=== PATIENT | male | born 1945 | race Caucasian/White ===

== ENCOUNTER 2016-07-02 10:09 | Inpatient (IN) | payer OTHER, MEDICARE ==
--- NOTE | 2016-07-02 10:19 | ER Document Report ---
ED Medical Screen (RME) - General Stated Complaint: SHORTNESS OF BREATH,COUGH Mode of Arrival: Wheelchair Information source: Patient Notes: Patient reports 6 pound weight gain in 2 days. Patient complains of cough and shortness of breath. Patient does not wear oxygen at home. Patient denies any chest pain hx: CAD, A. fib, CHF diabetes, sleep apnea, ischemic cardiomyopathy I have greeted and performed a rapid initial assessment of this patient. A comprehensive ED assessment and evaluation of the patient, analysis of test results and completion of the medical decision making process will be conducted by additional ED providers. - Related Data Allergies/Adverse Reactions: spironolactone Allergy (Verified 07/02/16 10:17) Physical Exam - Vital signs Vitals: Temp Pulse Resp BP Pulse Ox 97.9 F 83 23 H 117/62 85 L 07/02/16 10:14 07/02/16 10:14 07/02/16 10:14 07/02/16 10:14 07/02/16 10:14 - Respiratory Respiratory status: No respiratory distress, Other - Diminished breath sounds bilaterally in the bases Breath sounds: Nonproductive cough Course - Vital Signs Vital signs: Temp Pulse Resp BP Pulse Ox 97.9 F 83 23 H 117/62 85 L 07/02/16 10:14 07/02/16 10:14 07/02/16 10:14 07/02/16 10:14 07/02/16 10:14
[2016-07-02] MEDS ORDERED: IPRATROPIUM/ALBUTEROL 0.5-2.5 MG/3 ML AMPUL NEB ONE ×3 (10:28→10:29)
[2016-07-02 10:50] LABS: ABSOLUTE BASOPHILS # (AUTO) 0.1 10^3/uL (0.0-0.2); ABSOLUTE EOSINOPHILS # (AUTO) 0.2 10^3/uL (0.0-0.6); ABSOLUTE MONOCYTES (AUTO) 0.7 10^3/uL (0.1-1.4); ABSOLUTE NEUT (AUTO) 6.8 10^3/uL (1.7-8.2); EOSINOPHILS % (AUTO) 2.2 % (0-6); HEMATOCRIT 37.5 % (37.9-51.0); HEMOGLOBIN 12.4 g/dL (13.5-17.0); HGB HCT DIFFERENCE -0.3; LYMPHOCYTES % (AUTO) 11.5 % (13-45); MEAN CORPUSCULAR HEMOGLOBIN 29.3 pg (27.0-33.4); MEAN CORPUSCULAR HGB CONC 33.2 g/dL (32.0-36.0); MEAN CORPUSCULAR VOLUME 88 fl (80-97); MONOCYTES % (AUTO) 7.7 % (3-13); RED BLOOD COUNT 4.25 10^6/uL (4.35-5.55); RED CELL DISTRIBUTION WIDTH 15.6 % (11.5-14.0); SEGMENTED NEUTROPHILS % (AUTO) 77.6 % (42-78); WHITE BLOOD COUNT 8.8 10^3/uL (4.0-10.5)
[2016-07-02 10:59] LABS: PROTHROMBIN TIME 19.1 SEC (11.4-15.4)
--- NOTE | 2016-07-02 10:59 | ER Document Report ---
ED General - General Chief Complaint: Shortness Of Breath Stated Complaint: SHORTNESS OF BREATH,COUGH Mode of Arrival: Wheelchair Information source: Patient Notes: 71 yr old male presents with hx of chf, with sob, non productive cough of 4 day duration. pt seen at [facility] yesterday diagnosed with bronchitis pt is not on oxygen at home TRAVEL OUTSIDE OF THE [place] IN LAST 30 DAYS: No - HPI Onset: Last week Onset/Duration: Persistent Quality of pain: No pain Severity: Moderate Pain Level: Denies Associated symptoms: Nonproductive cough, Shortness of breath Exacerbated by: Denies Relieved by: Denies Similar symptoms previously: Yes Recently seen / treated by doctor: Yes - Related Data Allergies/Adverse Reactions: spironolactone Allergy (Verified 07/02/16 10:17) Past Medical History - General Information source: Patient - Social History Smoking Status: Never Smoker Cigarette use (# per day): No Chew tobacco use (# tins/day): No Smoking Education Provided: No Frequency of alcohol use: None Drug Abuse: None Family History: Reviewed & Not Pertinent Patient has suicidal ideation: No Patient has homicidal ideation: No Renal/ Medical History: Denies: Hx Peritoneal Dialysis Review of Systems - Review of Systems Notes: REVIEW OF SYSTEMS: CONSTITUTIONAL : Denies fever, chills, or sweats. Denies recent illness. EENT: Denies eye, ear, throat, or mouth pain or symptoms. Denies nasal or sinus congestion or discharge. Denies throat, tongue, or mouth swelling or difficulty swallowing. CARDIOVASCULAR: Denies chest pain. Denies palpitations or racing or irregular heart beat. Denies ankle edema. RESPIRATORY: Admits to shortness of breath nonproductive cough GASTROINTESTINAL: Denies abdominal pain or distention. Denies nausea, vomiting , or diarrhea. Denies blood in vomitus, stools, or per rectum. Denies black, tarry stools. Denies constipation. GENITOURINARY: Denies difficulty urinating, painful urination, burning, frequency, blood in urine, or discharge. MUSCULOSKELETAL: Denies back or neck pain or stiffness. Denies joint pain or swelling. SKIN: Denies rash, lesions or sores. HEMATOLOGIC : Denies easy bruising or bleeding. LYMPHATIC: Denies swollen, enlarged glands. NEUROLOGICAL: Denies confusion or altered mental status. Denies passing out or loss of consciousness. Denies dizziness or lightheadedness. Denies headache. Denies weakness or paralysis or loss of use of either side. Denies problems with gait or speech. Denies sensory loss, numbness, or tingling. Denies seizures. PSYCHIATRIC: Denies anxiety or stress. Denies depression, suicidal ideation, or homicidal ideation. ALL OTHER SYSTEMS REVIEWED AND NEGATIVE. Dictation was performed using [employer] voice recognition software PHYSICAL EXAMINATION: GENERAL: Well-appearing, well-nourished and in no acute distress. HEAD: Atraumatic, normocephalic. EYES: Pupils equal round and reactive to light, extraocular movements intact, sclera anicteric, conjunctiva are normal. ENT: Nares patent, oropharynx clear without exudates. Moist mucous membranes. NECK: Normal range of motion, supple without lymphadenopathy LUNGS: Patient satting 85% on room air on arrival, crackles at the bases HEART: Regular rate and rhythm without murmurs ABDOMEN: Soft, nontender, nondistended abdomen. No guarding, no rebound. No masses appreciated. Musculoskeletal: Normal range of motion, no pitting or edema. No cyanosis. NEUROLOGICAL: Cranial nerves grossly intact. Normal speech, normal gait. Normal sensory, motor exams PSYCH: Normal mood, normal affect. SKIN: Warm, Dry, normal turgor, no rashes or lesions noted. Physical Exam - Vital signs Vitals: Temp Pulse Resp BP Pulse Ox 97.9 F 83 23 H 117/62 85 L 07/02/16 10:14 07/02/16 10:14 07/02/16 10:14 07/02/16 10:14 07/02/16 10:14 Course - Re-evaluation Re-evalutation: 07/02/16 11:00 Patient has probable COPD versus CHF exacerbation. Patient on 4 L nasal cannula satting 96% in no significant distress 07/02/16 12:13 Patient's x-ray lab work is consistent with CHF exacerbation, he was taken off oxygen and immediately D satting to 88%. He'll be given Lasix and will be admitted to hospital service for further evaluation and care - Vital Signs Vital signs: Temp Pulse Resp BP Pulse Ox 97.9 F 83 20 134/69 H 95 07/02/16 10:14 07/02/16 10:14 07/02/16 12:01 07/02/16 12:01 07/02/16 12:01 - Laboratory Result Diagrams: 07/02/16 10:37 07/02/16 10:37 Laboratory results interpreted by me: 07/02/16 07/02/16 07/02/16 10:37 10:37 10:37 RBC 4.25 L Hgb 12.4 L Hct 37.5 L RDW 15.6 H Plt Count 149 L Lymphocytes % 11.5 L PT APTT BUN 28 H Creatinine 1.31 H Est GFR (Non-Af Amer) 54 L Glucose 158 H Alkaline Phosphatase 132 H Creatine Kinase 248 H NT-Pro-B Natriuret Pep 1210 H 07/02/16 10:37 RBC Hgb Hct RDW Plt Count Lymphocytes % PT 19.1 H APTT 39.4 H BUN Creatinine Est GFR (Non-Af Amer) Glucose Alkaline Phosphatase Creatine Kinase NT-Pro-B Natriuret Pep - Diagnostic Test Radiology reviewed: Image reviewed, Reports reviewed - EKG Interpretation by Me EKG shows normal: Sinus rhythm, [place], Intervals, QRS Complexes Critical Care Note - Critical Care Note Total time excluding time spent on procedures (mins): 34 Comments: 34 minutes of critical care time spent in direct contact evaluating and reevaluating the patient, treating symptoms, reviewing labs and studies and speaking with family and consultants excluding any procedures Discharge - Discharge Clinical Impression: Hypoxemia, Respiratory distress Acute on chronic congestive heart failure Qualifiers: Congestive heart failure type: systolic Qualified Code(s): I50.23 - Acute on chronic systolic (congestive) heart failure Condition: Stable Disposition: ADMITTED INPATIENT Admitting Provider: Hospitalist Unit Admitted: Telemetry
[2016-07-02 11:00] LABS: PARTIAL THROMBOPLASTIN TIME 39.4 SEC (23.5-35.8)
[2016-07-02 11:08] LABS: ALANINE AMINOTRANSFERASE 35 U/L (21-72); ALBUMIN 3.7 g/dL (3.5-5.0); ALKALINE PHOSPHATASE 132 U/L (38-126); ANION GAP 11 (5-19); ASPARTATE AMINO TRANSFERASE 33 U/L (17-59); BLOOD UREA NITROGEN 28 mg/dL (7-20); CALCIUM 8.9 mg/dL (8.4-10.2); CARBON DIOXIDE 27 mmol/L (22-30); CHLORIDE 104 mmol/L (98-107); CREATINE KINASE 248 U/L (55-170); CREATININE RESULT 1.31 mg/dL (0.52-1.25); GLUCOSE 158 mg/dL (75-110); MAGNESIUM 1.9 mg/dL (1.6-2.3); POTASSIUM 4.2 mmol/L (3.6-5.0); SODIUM 141.6 mmol/L (137-145)
[2016-07-02 11:20] LABS: CREATINE KINASE MB 2.12 ng/mL (<4.55); TROPONIN I < 0.012 ng/mL
[2016-07-02] MEDS ORDERED: FUROSEMIDE INJ/PF 20 MG/2 ML SDV IV ONE (12:13)
[2016-07-02] MEDS ORDERED: ONDANSETRON HCL INJ/PF 4 MG/2 ML SDV IV PRN (14:40)
[2016-07-02] MEDS ORDERED: ACETAMINOPHEN 325 MG TABLET PO PRN (14:40)
[2016-07-02] MEDS ORDERED: INSULIN REG, HUMAN 100 UNIT/ML 3 ML VIAL (PYX) SUBCUT PRN (14:48)
[2016-07-02] MEDS ORDERED: GLUCAGON,HUMAN RECOMB 1 MG INJ IM PRN (14:48)
[2016-07-02] MEDS ORDERED: DEXTROSE 50%-WATER 25 GM/50 ML DISP.SYRIN IV PRN ×2 (14:48)
[2016-07-02] MEDS ORDERED: DEXTROSE 40% GEL 15 GM TUBE PO PRN ×2 (14:48)
[2016-07-02] MEDS ORDERED: LEVALBUTEROL HCL NEB 1.25 MG/3 ML AMPUL NEB PRN (14:56)
--- NOTE | 2016-07-02 15:14 | PDOC H&P ---
History of Present Illness Admission Date/PCP: 07/02/16 13:39 Patient complains of: Shortness of breath History of Present Illness: GRACE LEONE is a 71 year old male, diabetic, hypertension, history of coronary artery disease and heart failure with unknown ejection fraction presents to the hospital with increasing shortness of breath of a few days duration. The patient was exposed to his grandchildren sick with a virus with coughing and sinus congestion. 3-4 days ago the patient had similar symptoms with cough productive of yellowish to greenish phlegm. No definite fever or chills, no sore throat, no sinus congestion. Patient started to develop some mild shortness of breath that will spontaneously go away. The patient noted increasing lower extremity edema however. Paroxysmal nocturnal dyspnea, no orthopnea. No chest pain at all. Still without any fever. The patient was scheduled to see her physician but unable to due to worsening shortness of breath today therefore he presented to the hospital for evaluation. He was given intravenous Lasix and nebulizers and he improved. Chest x-ray revealed pulmonary vascular congestion. [facility] was then referred for admission. Past Medical History Past Medical History: Medication reconcillation pending verification from the patient's pharmacist Cardiac Medical History: Reports: Atrial Fibrillation, Congestive Heart Failure , Coronary Artery Disease, Hypertension Pulmonary Medical History: Reports: Sleep Apnea Endocrine Medical History: Reports: Diabetes Mellitus Type 1, Diabetes Mellitus Type 2 Past Surgical History Past Surgical History: Reports: Coronary Artery Bypass Graft, Knee Replacement, Other - Mastectomy for breast cancer, partial nephrectomy on the left Social History Information Source: Patient Smoking Status: Never Smoker Frequency of Alcohol Use: None Hx Recreational Drug Use: No Drugs: None Family History Family History: CAD, Malignancy - Breast cancer and uterine cancer and bone cancer Parental Family History Reviewed: Yes Children Family History Reviewed: Yes Sibling(s) Family History Reviewed.: Yes Medication/Allergy Allergies/Adverse Reactions: spironolactone Allergy (Verified 07/02/16 10:17) Review of Systems Constitutional: ABSENT: chills, fever(s), headache(s), weakness, weight gain, weight loss Eyes: ABSENT: visual disturbances Ears: ABSENT: hearing changes Nose, Mouth, and Throat: ABSENT: mouth pain, sore throat Cardiovascular: PRESENT: dyspnea on exertion, edema. ABSENT: chest pain, orthropnea, palpitations Respiratory: PRESENT: cough, dyspnea, sputum. ABSENT: hemoptysis Gastrointestinal: ABSENT: abdominal pain, constipation, diarrhea, hematemesis, hematochezia, nausea, vomiting Genitourinary: ABSENT: dysuria, hematuria Musculoskeletal: ABSENT: joint swelling Integumentary: ABSENT: pruritus, rash, wounds Neurological: ABSENT: abnormal gait, abnormal speech, confusion, dizziness, focal weakness, syncope Psychiatric: ABSENT: anxiety, depression, homidical ideation, suicidal ideation Endocrine: ABSENT: cold intolerance, heat intolerance, polydipsia, polyuria Hematologic/Lymphatic: ABSENT: easy bleeding, easy bruising Physical Exam Vital Signs: Temp Pulse Resp BP Pulse Ox 97.9 F 83 25 H 140/70 H 88 L 07/02/16 10:14 07/02/16 10:14 07/02/16 14:01 07/02/16 14:01 07/02/16 14:01 General appearance: PRESENT: no acute distress, morbidly obese Head exam: PRESENT: atraumatic, normocephalic Eye exam: PRESENT: conjunctiva pink, EOMI, PERRLA. ABSENT: scleral icterus Ear exam: PRESENT: normal external ear exam Mouth exam: PRESENT: moist, neck supple, tongue midline Neck exam: ABSENT: carotid bruit, JVD, lymphadenopathy, thyromegaly Respiratory exam: PRESENT: decreased breath sounds - Bilateral, rales - Lower lung [place]. ABSENT: rhonchi, wheezes Cardiovascular exam: PRESENT: irregular rhythm, +S1, +S2. ABSENT: diastolic murmur, gallop, rubs, systolic murmur Pulses: PRESENT: normal dorsalis pedis pul Vascular exam: PRESENT: normal capillary refill GI/Abdominal exam: PRESENT: normal bowel sounds, soft. ABSENT: distended, guarding, mass, organolmegaly, rebound, tenderness Rectal exam: PRESENT: deferred Extremities exam: PRESENT: full ROM, pedal edema, +1 edema. ABSENT: calf tenderness, clubbing Neurological exam: PRESENT: alert, awake, oriented to person, oriented to place , oriented to time, oriented to situation Psychiatric exam: PRESENT: appropriate affect, normal mood. ABSENT: homicidal ideation, suicidal ideation Skin exam: PRESENT: dry, intact, warm. ABSENT: cyanosis, rash Results Impressions: Chest X-Ray 07/02/16 10:18 IMPRESSION: CARDIAC ENLARGEMENT. VASCULAR CONGESTION. Assessment & Plan - Diagnosis (1) CHF exacerbation Qualifiers: Congestive heart failure type: unspecified congestive heart failure type Qualified Code(s): I50.9 - Heart failure, unspecified Is this a current diagnosis for this admission?: Yes (2) Acute bronchitis Qualifiers: Bronchitis organism: unspecified organism Qualified Code(s): J20.9 - Acute bronchitis, unspecified Is this a current diagnosis for this admission?: Yes (3) Chronic atrial fibrillation Is this a current diagnosis for this admission?: Yes (4) Coronary artery disease Qualifiers: Coronary Disease-Associated Artery/Lesion type: [place] artery [place] vs. transplanted heart: [place] heart Associated angina: without angina Qualified Code(s): I25.10 - Atherosclerotic heart disease of [place] coronary artery without angina pectoris Is this a current diagnosis for this admission?: Yes (5) Hypertension Qualifiers: Hypertension type: essential hypertension Qualified Code(s): I10 - Essential (primary) hypertension Is this a current diagnosis for this admission?: Yes (6) Obstructive sleep apnea Is this a current diagnosis for this admission?: Yes (7) Type I diabetes mellitus Qualifiers: Diabetes mellitus complication status: with unspecified complications Qualified Code(s): E10.8 - Type 1 diabetes mellitus with unspecified complications Is this a current diagnosis for this admission?: Yes - Time Time Spent: 50 to 70 Minutes - Inpatient Certification Based on my medical assessment, after consideration of the patient's comorbidities, presenting symptoms, or acuity I expect that the services needed warrant INPATIENT care.: Yes I certify that my determination is in accordance with my understanding of Medicare's requirements for reasonable and necessary INPATIENT services [42 CFR 412.3e].: Yes Medical Necessity: Significant Comorbidiites Make Outpatient Treatment Too Risky , Need Close Monitoring Due to Risk of Patient Decompensation, Need For Continuous Telemetry Monitoring, Risk of Complication if Not Cared For in Hospital, Risk of Diagnosis Which Will Require Inpatient Eval/Care/Monitoring Post Hospital Care: [employer] Documentation - Plan Summary Plan Summary: The patient will be admitted to telemetry. I am going to begin the patient on intravenous diuretic, continue his beta heath and RONNA inhibitor. We are going to start the patient on antibiotic to likely infection caused him to have heart failure. In the meantime we will obtain an echocardiogram. I will continue his eliquis, and insulin regimen. Supplemental oxygen will be given. Patient will be on sliding scale insulin. Further testing depends on the initial evaluation as outlined above.
[2016-07-02 15:57] LABS: APPEARANCE,URINE CLEAR; BILIRUBIN,URINE NEGATIVE (NEGATIVE); GLUCOSE, URINE NEGATIVE (NEGATIVE); KETONES,URINE NEGATIVE (NEGATIVE); LEUKOCYTE ESTERASE,URINE NEGATIVE (NEGATIVE); NITRITE,URINE NEGATIVE (NEGATIVE); PROTEIN,URINE NEGATIVE (NEGATIVE); URINE SPECIFIC GRAVITY 1.008; UROBILINOGEN,URINE NEGATIVE mg/dL (<2.0)
[2016-07-02 16:10] LABS: WBC,URINE RARE /HPF
--- NOTE | 2016-07-02 16:57 | EKG REPORT ---
SEVERITY:- ABNORMAL ECG - ATRIAL FIBRILLATION LOW VOLTAGE IN FRONTAL LEADS NONSPECIFIC T ABNORMALITIES, LATERAL LEADS : Confirmed by: Mel Gomez MD 02-Jul-2016 16:56:09
[2016-07-02 17:18] LABS: THYROID STIMULATING HORMONE 3.4 uIU/mL (0.47-4.68)
[2016-07-02] MEDS: LANSOPRAZOLE 30 MG TAB.RAP.DR PO SCH (18:14)
[2016-07-02] MEDS: LEVOFLOXACIN 750 MG TABLET PO SCH (18:16)
[2016-07-02] MEDS: DOCUSATE SODIUM 100 MG CAPSULE PO SCH (18:16)
[2016-07-02] MEDS: TAMSULOSIN HCL 0.4 MG CAP.SR.24H PO SCH (18:16)
[2016-07-02] MEDS: METFORMIN HCL 500 MG TABLET PO SCH (18:16)
[2016-07-02] MEDS: APIXABAN 5 MG TABLET PO SCH (18:16)
[2016-07-02] MEDS: FUROSEMIDE INJ/PF 100 MG/10 ML SDV IV SCH (22:03)
[2016-07-02] MEDS: ISOSORBIDE MONONITRATE 60 MG TAB.ER.24H PO SCH (22:05)
[2016-07-02] MEDS: CARVEDILOL 12.5 MG TABLET PO SCH (22:05)
[2016-07-02] MEDS: INSULIN GLARGINE,HUM.REC.ANLOG 300 UNIT/3 ML INSULN.PEN SUBCUT SCH (22:09)
[2016-07-03] MEDS: LANSOPRAZOLE 30 MG TAB.RAP.DR PO SCH ×2 (06:36→16:52)
[2016-07-03] MEDS: METFORMIN HCL 500 MG TABLET PO SCH ×2 (09:30→16:52)
[2016-07-03] MEDS: FUROSEMIDE INJ/PF 100 MG/10 ML SDV IV SCH ×2 (09:30→23:01)
[2016-07-03] MEDS: APIXABAN 5 MG TABLET PO SCH ×2 (09:30→18:17)
[2016-07-03] MEDS: LISINOPRIL 10 MG TABLET PO SCH (09:30)
[2016-07-03] MEDS: DOCUSATE SODIUM 100 MG CAPSULE PO SCH ×2 (09:30→18:17)
[2016-07-03] MEDS: ISOSORBIDE MONONITRATE 60 MG TAB.ER.24H PO SCH ×2 (09:30→23:01)
[2016-07-03] MEDS: CARVEDILOL 12.5 MG TABLET PO SCH ×2 (09:30→23:01)
[2016-07-03 11:20] LABS: ANION GAP 12 (5-19); BLOOD UREA NITROGEN 35 mg/dL (7-20); CALCIUM 8.7 mg/dL (8.4-10.2); CARBON DIOXIDE 30 mmol/L (22-30); CHLORIDE 99 mmol/L (98-107); CREATININE RESULT 1.41 mg/dL (0.52-1.25); GLUCOSE 219 mg/dL (75-110); MAGNESIUM 1.7 mg/dL (1.6-2.3); POTASSIUM 3.7 mmol/L (3.6-5.0)
--- NOTE | 2016-07-03 11:21 | PDOC PROGRESS REPORT ---
Subjective Progress Note for:: 07/03/16 Subjective:: Patient is doing well. Able to ambulate to the [facility] without difficulty. Shortness of breath is less. No chest pain at all. Lower extremity edema is likewise improved. No diarrhea. No nausea or vomiting. Physical Exam Vital Signs: Temp Pulse Resp BP Pulse Ox 98.2 F 80 16 117/52 L 92 07/03/16 07:28 07/03/16 07:28 07/03/16 07:28 07/03/16 07:28 07/03/16 07:28 Pulse Oximeter Continuous Start: 07/02/16 14: 42 Freq: RTQ4 Status: Active Document 07/03/16 04:55 KLO (Rec: 07/03/16 05:02 [email or web address]) Pulse Oximetry Assessment Oxygen Saturation (92-100) 93 Oxygen Flow Rate (L/min) 3 Oxygen Delivery Method CPAP Fraction of Inspired Oxygen (FIO2) 32 Equipment Usage Equipment in Use Continuous SpO2 Machine # 10 Intake & Output 07/02/16 07/03/16 07/04/16 06:59 06:59 06:59 Intake Total 1686 Output Total 1025 Balance 661 Weight 152.407 kg General appearance: PRESENT: no acute distress, cooperative, obese Head exam: PRESENT: normocephalic Eye exam: PRESENT: EOMI Mouth exam: PRESENT: moist, neck supple Neck exam: ABSENT: JVD Respiratory exam: PRESENT: clear to auscultation [place] - Anteriorly bilateral, rales - Decreased posteriorly on the lower lung [place]. ABSENT: rhonchi, wheezes Cardiovascular exam: ABSENT: gallop, RRR GI/Abdominal exam: PRESENT: normal bowel sounds, soft. ABSENT: distended, tenderness Extremities exam: PRESENT: +1 edema - Improved Neurological exam: PRESENT: alert, awake, oriented to time Skin exam: PRESENT: dry, warm. ABSENT: cyanosis Results Laboratory Results: 07/02/16 07/02/16 15:11 15:14 TSH 3.40 Free T4 1.51 Urine Color STRAW Urine Appearance CLEAR Urine pH 5.0 Ur Specific Opp 1.008 Urine Protein NEGATIVE Urine Glucose (UA) NEGATIVE Urine Ketones NEGATIVE Urine Blood SMALL H Urine Nitrite NEGATIVE Ur Leukocyte Esterase NEGATIVE Ur Squamous Epith Cells FEW Impressions: Chest X-Ray 07/02/16 10:18 IMPRESSION: CARDIAC ENLARGEMENT. VASCULAR CONGESTION. Assessment & Plan - Diagnosis (1) CHF exacerbation Qualifiers: Congestive heart failure type: unspecified congestive heart failure type Qualified Code(s): I50.9 - Heart failure, unspecified Is this a current diagnosis for this admission?: Yes (2) Acute bronchitis Qualifiers: Bronchitis organism: unspecified organism Qualified Code(s): J20.9 - Acute bronchitis, unspecified Is this a current diagnosis for this admission?: Yes (3) Chronic atrial fibrillation Is this a current diagnosis for this admission?: Yes (4) Coronary artery disease Qualifiers: Coronary Disease-Associated Artery/Lesion type: [place] artery [place] vs. transplanted heart: [place] heart Associated angina: without angina Qualified Code(s): I25.10 - Atherosclerotic heart disease of [place] coronary artery without angina pectoris Is this a current diagnosis for this admission?: Yes (5) Hypertension Qualifiers: Hypertension type: essential hypertension Qualified Code(s): I10 - Essential (primary) hypertension Is this a current diagnosis for this admission?: Yes (6) Obstructive sleep apnea Is this a current diagnosis for this admission?: Yes (7) Type I diabetes mellitus Qualifiers: Diabetes mellitus complication status: with unspecified complications Qualified Code(s): E10.8 - Type 1 diabetes mellitus with unspecified complications Is this a current diagnosis for this admission?: Yes - Time Time Spent with patient: 25-34 minutes - Plan Summary Plan Summary: Continue IV diuretics for now. Begin physical therapy. Try to ambulate around and increase activity. Continue RONNA inhibitor and beta heath. Monitor electrolytes. Continue supportive care. If the patient continues to improve by the morning, we will discharge home.
[2016-07-03] MEDS: LEVOFLOXACIN 750 MG TABLET PO SCH (18:20)
[2016-07-03] MEDS: TAMSULOSIN HCL 0.4 MG CAP.SR.24H PO SCH (18:20)
[2016-07-03] MEDS: INSULIN GLARGINE,HUM.REC.ANLOG 300 UNIT/3 ML INSULN.PEN SUBCUT SCH (23:00)
[2016-07-04] MEDS: LANSOPRAZOLE 30 MG TAB.RAP.DR PO SCH (06:56)
[2016-07-04] MEDS: METFORMIN HCL 500 MG TABLET PO SCH (08:53)
[2016-07-04] MEDS: CARVEDILOL 12.5 MG TABLET PO SCH (10:34)
[2016-07-04] MEDS: APIXABAN 5 MG TABLET PO SCH (10:34)
[2016-07-04] MEDS: ISOSORBIDE MONONITRATE 60 MG TAB.ER.24H PO SCH (10:36)
[2016-07-04] MEDS: LISINOPRIL 10 MG TABLET PO SCH (10:36)
[2016-07-04] MEDS: DOCUSATE SODIUM 100 MG CAPSULE PO SCH (10:37)
[2016-07-04] MEDS ORDERED: FUROSEMIDE 40 MG TABLET PO ONE (11:30)
--- NOTE | 2016-07-04 15:02 | PDOC DISCHARGE SUMMARY ---
General - Admit/Disc Date/PCP Admission Date/Primary Care Provider: 07/02/16 14:41 Discharge Date: 07/04/16 - Discharge Diagnosis (1) CHF exacerbation Is this a current diagnosis for this admission?: Yes (2) Acute bronchitis Is this a current diagnosis for this admission?: Yes (3) Chronic atrial fibrillation Is this a current diagnosis for this admission?: Yes (4) Coronary artery disease Is this a current diagnosis for this admission?: Yes (5) Hypertension Is this a current diagnosis for this admission?: Yes (6) Obstructive sleep apnea Is this a current diagnosis for this admission?: Yes (7) Type I diabetes mellitus Is this a current diagnosis for this admission?: Yes - Additional Information Resuscitation Status: Full Code Discharge Diet: Cardiac - low-fat low-salt, Diabetic - no concentrated sweets Discharge Activity: Activity As Tolerated, Balance Activity w/Rest, Slowly Increase Activity Home Medications: Allopurinol [Zyloprim 100 mg Tablet] 100 mg PO DAILY 07/02/16 Apixaban [Eliquis 5 mg Tablet] 5 mg PO BID 07/02/16 Atorvastatin Calcium [Lipitor 10 mg Tablet] 0 mg PO QHS 07/02/16 Docusate Sodium [Colace 100 mg Capsule] 100 mg PO BID 07/02/16 Insulin Aspart [Novolog Insulin (Aspart) 100 unit/mL] 8 units SQ WSUPPER Insulin Glargine,Hum.rec.anlog [Lantus Insulin 100 Unit/mL] 36 units SQ QHS Isosorbide Mononitrate [Isosorbide Mononitrate ER] 0 mg PO DAILY 07/02/16 Lisinopril [Zestril] 10 mg PO DAILY 07/02/16 Metformin HCl [Glucophage] 1,000 mg PO BID 07/02/16 Nitroglycerin [Nitrostat] 0.4 mg PO Q3M 07/02/16 Ranitidine HCl [Zantac 150 mg Tablet] 150 mg PO BID 07/02/16 Tamsulosin HCl [Flomax] 0.4 mg PO DAILY 07/02/16 Bumetanide [Bumex 1 mg Tablet] 2 mg PO BID #30 tablet 07/04/16 Levofloxacin [Levaquin 750 mg Tablet] 750 mg PO QPM #7 tablet 02/26/17 Additional Information: 1. Basic metabolic panel as outpatient with Primary care physician in one week. 2. Continue home CPAP History of Present Illness Patient complains of: Shortness of breath History of Present Illness: GRACE LEONE is a 71 year old male, diabetic, hypertension, history of coronary artery disease and heart failure with unknown ejection fraction presents to the hospital with increasing shortness of breath of a few days duration. The patient was exposed to his grandchildren sick with a virus with coughing and sinus congestion. 3-4 days ago the patient had similar symptoms with cough productive of yellowish to greenish phlegm. No definite fever or chills, no sore throat, no sinus congestion. Patient started to develop some mild shortness of breath that will spontaneously go away. The patient noted increasing lower extremity edema however. Paroxysmal nocturnal dyspnea, no orthopnea. No chest pain at all. Still without any fever. The patient was scheduled to see her physician but unable to due to worsening shortness of breath today therefore he presented to the hospital for evaluation. He was given intravenous Lasix and nebulizers and he improved. Chest x-ray revealed pulmonary vascular congestion. [facility] was then referred for admission. Hospital Course Hospital Course: The patient was admitted to telemetry. The patient was placed on supplemental oxygen. Diuretics was given intravenously. Patient was also started on antibiotic for possible bronchitis as he was exposed to someone sick with an upper respiratory tract infection. The patient significantly improved after 24 hours of treatment. Patient was able to ambulate around without oxygen. After 2 days of hospitalization, the patient continues to improve clinically. Oxygen Saturation on Room Air is greater than 90% on ambulation. The rest of the hospital stay is unremarkable. Patient wanted to go home and continue treatment on an outpatient basis. Patient wanted to follow with the [facility] as he was told they will try to make arrangements for him to have oxygen at bedtime. Physical Exam Vital Signs: Temp Pulse Resp BP Pulse Ox 97.5 F 75 18 146/63 H 93 07/04/16 11:40 07/04/16 14:00 07/04/16 12:21 07/04/16 11:40 07/04/16 12:21 Pulse Oximeter Continuous Start: 07/02/16 14: 42 Freq: RTQ4 Status: Complete Document 07/03/16 17:10 HCR (Rec: 07/03/16 18:24 HCR [id number]) Pulse Oximetry Assessment Equipment Usage Equipment Discontinued Continuous SpO2 Machine # 10 Intake & Output 07/03/16 07/04/16 07/05/16 06:59 06:59 06:59 Intake Total 1686 1694 780 Output Total 1023 2250 Balance 661 -948 780 Weight 148.1 kg 149.2 kg General appearance: PRESENT: no acute distress, cooperative, morbidly obese Head exam: PRESENT: normocephalic Eye exam: PRESENT: EOMI Mouth exam: PRESENT: moist, neck supple Neck exam: ABSENT: JVD Respiratory exam: PRESENT: clear to auscultation shala. ABSENT: rhonchi, wheezes Cardiovascular exam: PRESENT: irregular rhythm. ABSENT: gallop GI/Abdominal exam: PRESENT: normal bowel sounds, soft. ABSENT: distended - Obese Extremities exam: PRESENT: other - Lower extremity edema improved. Neurological exam: PRESENT: alert, awake, oriented to situation Skin exam: PRESENT: dry, warm. ABSENT: cyanosis Results Laboratory Results: 07/03/16 10:27 07/02/16 17:20 Nasophary ([facility] Only) MRSA Surveillance Culture - Final NO MRSA RECOVERED Impressions: Chest X-Ray 07/02/16 10:18 IMPRESSION: CARDIAC ENLARGEMENT. VASCULAR CONGESTION. Qualifiers PATEINT BEING DISCHARGED WITH ANY OF THE FOLLOWING DIAGNOSIS?: Heart Failure HF Pt being discharged on ACEI for LVEF less than 40%?: Yes HF Pt being discharged on ARBS for LVEF less than 40%?: No Reason(s) for not prescribing ARBS:: Not indicated - On RONNA inhibitor HF Pt with Afib discharged with Warfarin?: No Reason(s) for not prescribing Warfarin:: Not indicated - On another anticoagulant (eliquis) HF Pt discharged on evidence-based Beta Gilma?: Yes Plan Discharge Plan: Follow-up with primary care physician in one week. Time Spent: Less than 30 Minutes
[2016-07-04 15:05] VITALS: BP 139/61
[2016-07-04] MEDS ORDERED: FUROSEMIDE 80 MG TABLET PO SCH (22:00)
== END 2016-07-04 15:33 | disposition home or self-care (01) | DRG 292 ==
LOC: ER 10:09 → UNDOADMIN 13:39 → EH 13:39 → 5 15:32 → EH 15:32
PROC: 5A09357 Assistance with Respiratory Ventilation, Less than 24 Consecutive Hours, Continuous Positive Airway Pressure (ICD-10-PCS; principal; 2016-07-02)
PROC: 3E0F73Z Introduction of Anti-inflammatory into Respiratory Tract, Via Natural or Artificial Opening (ICD-10-PCS; 2016-07-02)
DX: I11.0 Hypertensive heart disease with heart failure (principal); Z68.42 Body mass index [BMI] 45.0-49.9, adult; I50.23 Acute on chronic systolic (congestive) heart failure; J20.9 Acute bronchitis, unspecified; I48.2 Chronic atrial fibrillation; I25.10 Atherosclerotic heart disease of native coronary artery without angina pectoris; G47.33 Obstructive sleep apnea (adult) (pediatric); E10.9 Type 1 diabetes mellitus without complications; E66.3 Overweight; Z96.659 Presence of unspecified artificial knee joint; Z79.899 Other long term (current) drug therapy; Z95.1 Presence of aortocoronary bypass graft; Z90.10 Acquired absence of unspecified breast and nipple; Z90.5 Acquired absence of kidney; Z85.3 Personal history of malignant neoplasm of breast; Z88.8 Allergy status to other drugs, medicaments and biological substances; Z82.49 Family history of ischemic heart disease and other diseases of the circulatory system; Z80.3 Family history of malignant neoplasm of breast; Z80.8 Family history of malignant neoplasm of other organs or systems; Z80.49 Family history of malignant neoplasm of other genital organs
CPT/HCPCS: 36415; 71020; 80048; 80053; 81001; 82550; 82553; 82962; 83735; 83880; 84439; 84443; 84484; 85025; 85610; 85730; 93005; 93010; 94640; 94660; 94762; 99291; J1815; J1940; J3490; J7620

== ENCOUNTER 2016-07-12 13:39 | Emergency (ER) | payer MEDICARE, OTHER ==
--- NOTE | 2016-07-12 14:39 | ER Document Report ---
ED Medical Screen (RME) - General Stated Complaint: LEFT LEG PAIN Time seen by provider: 14:38 Mode of Arrival: Wheelchair Information source: Patient Notes: 71-year-old male that was recently hospitalized for CHF started having left calf pain since yesterday. His [place] sent [place] the [place] for a venous Doppler ultrasound.. Takes eloquix bid. I have greeted and performed a rapid initial assessment of this patient. A comprehensive ED assessment, evaluation of the patient, analysis of test results , and completion of the medical decision making process will be conducted by additional ED providers. TRAVEL OUTSIDE OF THE [place] IN LAST 30 DAYS: No - Related Data Allergies/Adverse Reactions: spironolactone Allergy (Verified 07/02/16 10:17) Past Medical History - Past Medical History Cardiac Medical History: Reports: Hx Atrial Fibrillation, Hx Congestive Heart Failure, Hx Coronary Artery Disease, Hx Hypertension Pulmonary Medical History: Reports: Hx Sleep Apnea Endocrine Medical History: Reports: Hx Diabetes Mellitus Type 1, Hx Diabetes Mellitus Type 2 Renal/ Medical History: Denies: Hx Peritoneal Dialysis Past Surgical History: Reports: Hx Coronary Artery Bypass Graft, Other - Mastectomy for breast cancer, partial nephrectomy on the left Physical Exam - Vital signs Vitals: Temp Pulse Resp BP Pulse Ox 97.5 F 78 20 120/67 94 07/12/16 14:02 07/12/16 14:02 07/12/16 14:02 07/12/16 14:02 07/12/16 14:02 Course - Vital Signs Vital signs: Temp Pulse Resp BP Pulse Ox 97.5 F 78 20 120/67 94 07/12/16 14:02 07/12/16 14:02 07/12/16 14:02 07/12/16 14:02 07/12/16 14:02
[2016-07-12 15:28] LABS: ABSOLUTE BASOPHILS # (AUTO) 0.1 10^3/uL (0.0-0.2); ABSOLUTE EOSINOPHILS # (AUTO) 0.3 10^3/uL (0.0-0.6); ABSOLUTE LYMPHOCYTES (AUTO) 1.8 10^3/uL (0.5-4.7); ABSOLUTE MONOCYTES (AUTO) 0.5 10^3/uL (0.1-1.4); ABSOLUTE NEUT (AUTO) 5.7 10^3/uL (1.7-8.2); BASOPHILS % (AUTO) 0.8 % (0-2); EOSINOPHILS % (AUTO) 3.8 % (0-6); HEMATOCRIT 38.9 % (37.9-51.0); HGB HCT DIFFERENCE 0.1; LYMPHOCYTES % (AUTO) 21.1 % (13-45); MEAN CORPUSCULAR HEMOGLOBIN 29.1 pg (27.0-33.4); MEAN CORPUSCULAR HGB CONC 33.4 g/dL (32.0-36.0); MEAN CORPUSCULAR VOLUME 87 fl (80-97); MONOCYTES % (AUTO) 6.3 % (3-13); RED BLOOD COUNT 4.47 10^6/uL (4.35-5.55); RED CELL DISTRIBUTION WIDTH 15.7 % (11.5-14.0); WHITE BLOOD COUNT 8.3 10^3/uL (4.0-10.5)
[2016-07-12 15:36] LABS: PROTHROMBIN TIME 17.3 SEC (11.4-15.4)
[2016-07-12 15:37] LABS: PARTIAL THROMBOPLASTIN TIME 41.5 SEC (23.5-35.8)
[2016-07-12 15:43] LABS: ALANINE AMINOTRANSFERASE 37 U/L (21-72); ALBUMIN 3.4 g/dL (3.5-5.0); ALKALINE PHOSPHATASE 129 U/L (38-126); ANION GAP 10 (5-19); ASPARTATE AMINO TRANSFERASE 21 U/L (17-59); BILIRUBIN,TOTAL 0.5 mg/dL (0.2-1.3); BLOOD UREA NITROGEN 27 mg/dL (7-20); CALCIUM 9.5 mg/dL (8.4-10.2); CARBON DIOXIDE 28 mmol/L (22-30); CHLORIDE 102 mmol/L (98-107); CREATININE RESULT 1.21 mg/dL (0.52-1.25); GLUCOSE 168 mg/dL (75-110); POTASSIUM 4.3 mmol/L (3.6-5.0); SODIUM 140.2 mmol/L (137-145); TOTAL PROTEIN 6.4 g/dL (6.3-8.2)
--- NOTE | 2016-07-12 20:03 | ER Document Report ---
ED General - General Chief Complaint: Leg Pain Stated Complaint: LEFT LEG PAIN Time seen by provider: 19:59 Mode of Arrival: Wheelchair Information source: Patient Notes: 71-year-old male states he felt a pulling sensation in the left posterior calf or walking yesterday. Was seen at [place] [facility] today and referred here out of concern for possible DVT for Doppler study. The patient had a recent admission with CHF and bronchitis but says his breathing feels back to normal now. He reports chronic swelling in both lower extremities which she says is not worsened his baseline. Ports no history of travel or prolonged immobilization other than his recent hospitalization Physical Exam: General: Alert, appears well. HEENT: Normocephalic. Atraumatic. Neck: Supple. Non-tender. Respiratory: No respiratory distress. Clear and equal breath sounds bilaterally. Cardiovascular: Regular rate and rhythm. Abdominal: Normal Inspection. Soft, non-tender. No distension. Normal Bowel Sounds. Extremities: Moves all four extremities. Upper extremities: Normal inspection. Non-tender. Normal color. Normal ROM. Normal temperature. Lower extremities: Normal inspection. Non-tender. 2+ edema from knees down bilaterally no Homans sign bilaterally Normal color. Normal ROM. Normal temperature. Speech clear mentation normal Psychological: Normal affect. Normal Mood. Skin: Warm. Dry. Normal color. TRAVEL OUTSIDE OF THE [place] IN LAST 30 DAYS: No - Related Data Allergies/Adverse Reactions: spironolactone Allergy (Verified 07/12/16 14:39) Past Medical History - General Information source: Patient - Social History Smoking Status: Never Smoker Chew tobacco use (# tins/day): No Frequency of alcohol use: None Drug Abuse: None Family History: CAD, Malignancy - Breast cancer and uterine cancer and bone cancer Patient has suicidal ideation: No Patient has homicidal ideation: No - Past Medical History Cardiac Medical History: Reports: Hx Atrial Fibrillation, Hx Congestive Heart Failure, Hx Coronary Artery Disease, Hx Hypertension Pulmonary Medical History: Reports: Hx Sleep Apnea Endocrine Medical History: Reports: Hx Diabetes Mellitus Type 1, Hx Diabetes Mellitus Type 2 Renal/ Medical History: Denies: Hx Peritoneal Dialysis Surgical Hx: Negative Past Surgical History: Reports: Hx Coronary Artery Bypass Graft, Other - Mastectomy for breast cancer, partial nephrectomy on the left - Immunizations Hx Pneumococcal Vaccination: 05/09/15 Review of Systems - Review of Systems Constitutional: denies: Chills, Fever EENT: denies: Ear pain, Throat pain Cardiovascular: denies: Chest pain, Syncope Respiratory: See HPI Gastrointestinal: denies: Abdominal pain, Nausea, Vomiting Genitourinary: denies: Burning Musculoskeletal: denies: Back pain Skin: denies: Rash Neurological/Psychological: denies: Weakness, Numbness Physical Exam - Vital signs Vitals: Temp Pulse Resp BP Pulse Ox 97.5 F 78 20 120/67 94 07/12/16 14:02 07/12/16 14:02 07/12/16 14:02 07/12/16 14:02 07/12/16 14:02 Course - Re-evaluation Re-evalutation: 07/12/16 20:01 Doppler study negative for DVT or SVT. Patient speculates that he may have pulled a muscle in his calf and I certainly find no evidence for etiology more serious than that. [facility] - Vital Signs Vital signs: Temp Pulse Resp BP Pulse Ox 97.5 F 78 20 120/67 94 07/12/16 14:02 07/12/16 14:02 07/12/16 19:47 07/12/16 14:02 07/12/16 14:02 - Laboratory Result Diagrams: 07/12/16 14:50 07/12/16 14:50 Laboratory results interpreted by me: 07/12/16 07/12/16 07/12/16 14:50 14:50 14:50 Hgb 13.0 L RDW 15.7 H PT 17.3 H APTT 41.5 H BUN 27 H Est GFR (Non-Af Amer) 59 L Glucose 168 H Alkaline Phosphatase 129 H Albumin 3.4 L - Diagnostic Test Radiology reviewed: Reports reviewed Discharge - Discharge Clinical Impression: Calf pain Qualifiers: Laterality: left Qualified Code(s): M79.662 - Pain in left lower leg Condition: Stable Disposition: HOME, SELF-CARE Additional Instructions: HOME CARE INSTRUCTIONS & INFORMATION: Thank you for choosing us for your medical needs. We hope you're satisfied with the care you received. After you leave, you must properly care for your problem and, at the same time, observe its progress. Any condition can change. Some illnesses can change rapidly over hours or days. If your condition worsens, return to the Emergency Department or see your physician promptly. ABOUT YOUR X-RAYS AND EKG'S: If you had an EKG or X-rays taken, they have been read by the Emergency Physician. The X-rays and EKG's will also be read by a Radiologist or Electronic Maintenance Supervisor within 24 hours. If discrepancies are noted, you will be notified by telephone. Please be certain the ED has a correct telephone number & address where you can be reached. Also, realize that some fractures or abnormalities do not show up on initial X-rays. If your symptoms continue, see your physician. ABOUT YOUR LABORATORY TEST: If you had laboratory tests, the results have been reviewed by the Emergency Physician. Some test results (for example cultures) may not be available for several days. You will be contacted if any test result shows you need additional treatment. Please be certain the ED has a correct telephone number and address where you can be reached. ABOUT YOUR MEDICATIONS: You will receive instructions on how to take your medicine on the prescription label you receive. Additional information may be provided by the Pharmacy. If you have questions afterwards, call the ED for clarification or further instructions. Some prescribed medications may cause drowsiness. Do not perform tasks such as driving a car or operating machinery without consulting your Pharmacist. If you feel you need a refill of pain medication, your condition will need re-evaluation. Please do not call for a refill of any medication. ABOUT YOUR SIGNATURE: Signature of this document acknowledges to followin. Understanding that you received emergency treatment and that you may be released before al medical problems are known or treated. Please be certain the ED has a correct phone number & address where you can be reached. 2. Acknowledgement that you will arrange for follow-up care as recommended. 3. Authorization for the Emergency Physician to provide information to your follow-up Physician in order to maximize your care. AT ANY TIME, IF YOUR SYMPTOMS CHANGE SIGNIFICANTLY OR WORSEN OR YOU DEVELOP NEW SYMPTOMS, RETURN TO THE EMERGENCY DEPARTMENT IMMEDIATELY FOR RE-EVALUATION. OUR GOAL IS TO PROVIDE EXCELLENT MEDICAL CARE! WE HOPE THAT WE HAVE MET YOUR EXPECTATIONS DURING YOUR EMERGENCY DEPARTMENT VISIT AND THAT YOU FEEL YOU HAVE RECEIVED EXCELLENT CARE! Referrals: [facility] [Provider Group] - Follow up as needed
[2016-07-12 21:00] VITALS: BP 148/73
== END 2016-07-12 21:02 | disposition home or self-care (01) ==
LOC: ER 13:39
DX: M79.662 Pain in left lower leg (principal); R60.0 Localized edema; I25.10 Atherosclerotic heart disease of native coronary artery without angina pectoris; I10 Essential (primary) hypertension; E11.9 Type 2 diabetes mellitus without complications; Z95.1 Presence of aortocoronary bypass graft; Z85.3 Personal history of malignant neoplasm of breast; Z90.5 Acquired absence of kidney; Z88.8 Allergy status to other drugs, medicaments and biological substances
CPT/HCPCS: 36415; 80053; 85025; 85610; 85730; 93971; 99284

== ENCOUNTER 2016-07-20 12:37 | Inpatient (IN) | payer OTHER, MEDICARE ==
--- NOTE | 2016-07-20 12:53 | ER Document Report ---
ED Medical Screen (RME) - General Stated Complaint: COUGH Notes: Patient brought to the emergency room after referral by the [place] [facility] for low oxygen level at 84% and cough since Tuesday. Patient has a history of COPD, CHF , bypass with stent placement. Patient denies recent illness, chest pain, and shortness of breath is no worse than it normally is. Denies any increased swelling to lower legs. Patient uses a CPAP at home, but is not on home oxygen. [place] states his normal oxygen level is 90%. I have greeted and performed a rapid initial assessment of this patient. A comprehensive ED assessment and evaluation of the patient, analysis of test results and completion of the medical decision making process will be conducted by additional ED providers. TRAVEL OUTSIDE OF THE [place] IN LAST 30 DAYS: No - Related Data Allergies/Adverse Reactions: spironolactone Allergy (Verified 07/20/16 12:56) Past Medical History - Past Medical History Cardiac Medical History: Reports: Hx Atrial Fibrillation, Hx Congestive Heart Failure, Hx Coronary Artery Disease, Hx Hypertension Pulmonary Medical History: Reports: Hx Sleep Apnea Endocrine Medical History: Reports: Hx Diabetes Mellitus Type 1, Hx Diabetes Mellitus Type 2 Renal/ Medical History: Denies: Hx Peritoneal Dialysis Past Surgical History: Reports: Hx Coronary Artery Bypass Graft, Other - Mastectomy for breast cancer, partial nephrectomy on the left Physical Exam - Vital signs Vitals: Temp Pulse Resp BP Pulse Ox 97.5 F 82 20 109/61 90 L 07/20/16 12:50 07/20/16 12:50 07/20/16 12:50 07/20/16 12:50 07/20/16 12:50 - Respiratory Respiratory status: No respiratory distress Breath sounds: Decreased air movement Course - Vital Signs Vital signs: Temp Pulse Resp BP Pulse Ox 97.5 F 82 20 109/61 90 L 07/20/16 12:50 07/20/16 12:50 07/20/16 12:50 07/20/16 12:50 07/20/16 12:50
[2016-07-20 13:17] LABS: ABSOLUTE BASOPHILS # (AUTO) 0.1 10^3/uL (0.0-0.2); ABSOLUTE EOSINOPHILS # (AUTO) 0.4 10^3/uL (0.0-0.6); ABSOLUTE MONOCYTES (AUTO) 0.6 10^3/uL (0.1-1.4); ABSOLUTE NEUT (AUTO) 6.7 10^3/uL (1.7-8.2); BASOPHILS % (AUTO) 0.9 % (0-2); EOSINOPHILS % (AUTO) 4.7 % (0-6); HEMATOCRIT 40.3 % (37.9-51.0); HEMOGLOBIN 13.4 g/dL (13.5-17.0); HGB HCT DIFFERENCE -0.1; LYMPHOCYTES % (AUTO) 11.7 % (13-45); MEAN CORPUSCULAR HEMOGLOBIN 29.2 pg (27.0-33.4); MEAN CORPUSCULAR HGB CONC 33.3 g/dL (32.0-36.0); MEAN CORPUSCULAR VOLUME 88 fl (80-97); MONOCYTES % (AUTO) 7.2 % (3-13); RED CELL DISTRIBUTION WIDTH 15.8 % (11.5-14.0); SEGMENTED NEUTROPHILS % (AUTO) 75.5 % (42-78); WHITE BLOOD COUNT 8.8 10^3/uL (4.0-10.5)
[2016-07-20 13:21] LABS: PROTHROMBIN TIME 17.2 SEC (11.4-15.4)
[2016-07-20 13:31] LABS: ALANINE AMINOTRANSFERASE 30 U/L (21-72); ALBUMIN 3.6 g/dL (3.5-5.0); ALKALINE PHOSPHATASE 119 U/L (38-126); ANION GAP 14 (5-19); ASPARTATE AMINO TRANSFERASE 17 U/L (17-59); BILIRUBIN,TOTAL 0.8 mg/dL (0.2-1.3); BLOOD UREA NITROGEN 26 mg/dL (7-20); CALCIUM 8.6 mg/dL (8.4-10.2); CARBON DIOXIDE 26 mmol/L (22-30); CHLORIDE 103 mmol/L (98-107); CREATINE KINASE 198 U/L (55-170); CREATININE RESULT 1.09 mg/dL (0.52-1.25); GLUCOSE 193 mg/dL (75-110); POTASSIUM 4.2 mmol/L (3.6-5.0); SODIUM 142.6 mmol/L (137-145); TOTAL PROTEIN 6.4 g/dL (6.3-8.2)
[2016-07-20] MEDS ORDERED: IPRATROPIUM/ALBUTEROL 0.5-2.5 MG/3 ML AMPUL NEB ONE (13:34)
--- NOTE | 2016-07-20 13:37 | ER Document Report ---
ED Respiratory Problem - General Chief Complaint: Cough Stated Complaint: COUGH Notes: Patient brought to the emergency room after referral by the [place] [facility] for low oxygen level at 80%, productive cough and shortness of breath 1 week. Denies any history of COPD or asthma. Patient has a history of ischemic cardiomyopathy , CHF, bypass with stent placement. Patient denies chest pain, , wheezing, fever, chills, dyspnea on exertion. Denies any increased swelling to lower legs. Patient uses a CPAP at home, but is not on home oxygen. [place] states his normal oxygen level is 90%. Past medical history history of pneumonia May 2015 requiring hospital admission. When he was discharged was sent home with oxygen for about 2 months. h/o iron Deficiency anemia, hyperlipidemia, A. fib on exam, lymphedema, history of retinal detachment of the right eye, type II diabetes, gout, ischemic cardiomyopathy, coronary artery disease with previous stent placement and coronary artery bypass, obstructive sleep apnea on CPAP at home, hypertension, history of male breast cancer, obesity Past surgical history significant for coronary artery bypass in 89, coronary Stents for most recently 10 years ago, right partial mastectomy, right total knee arthroplasty and partial nephrectomy of the left kidney for benign mass Social history: Nonsmoker, occasional alcohol, denies any drug use. TRAVEL OUTSIDE OF THE [place] IN LAST 30 DAYS: No - Related Data Allergies/Adverse Reactions: spironolactone Allergy (Verified 07/20/16 12:56) Past Medical History - Social History Smoking Status: Never Smoker Family History: CAD, Malignancy - Breast cancer and uterine cancer and bone cancer - Past Medical History Cardiac Medical History: Reports: Hx Atrial Fibrillation, Hx Congestive Heart Failure, Hx Coronary Artery Disease, Hx Hypertension Pulmonary Medical History: Reports: Hx Sleep Apnea Endocrine Medical History: Reports: Hx Diabetes Mellitus Type 1, Hx Diabetes Mellitus Type 2 Renal/ Medical History: Denies: Hx Peritoneal Dialysis Past Surgical History: Reports: Hx Coronary Artery Bypass Graft, Other - Mastectomy for breast cancer, partial nephrectomy on the left - Immunizations Hx Pneumococcal Vaccination: 05/09/15 Review of Systems - Review of Systems Constitutional: No symptoms reported EENT: No symptoms reported Cardiovascular: No symptoms reported Respiratory: See HPI Gastrointestinal: No symptoms reported Genitourinary: No symptoms reported Male Genitourinary: No symptoms reported Musculoskeletal: No symptoms reported Skin: No symptoms reported Hematologic/Lymphatic: No symptoms reported Neurological/Psychological: No symptoms reported Physical Exam - Vital signs Vitals: Temp Pulse Resp BP Pulse Ox 97.5 F 82 20 109/61 90 L 07/20/16 12:50 07/20/16 12:50 07/20/16 12:50 07/20/16 12:50 07/20/16 12:50 - Notes Notes: PHYSICAL EXAM GENERAL: Alert, interacts well. HEAD: Normocephalic, atraumatic. EYES: Pupils equal, round, and reactive to light. Extraocular movements intact. ENT: Oral mucosa moist, tongue midline. NECK: Full range of motion. Supple. Trachea midline. LUNGS: Clear to auscultation bilaterally with difficulty inhaling deeply and crackles noted at the bases bilaterally. Taking short breaths., no wheezes, rales, or rhonchi. No respiratory distress. He will speak in full sentences. HEART: Regular rate and rhythm. No murmurs, gallops, or rubs. ABDOMEN: Obese, Soft, nondistended, nontender. No guarding, rebound, or rigidity.. Bowel sounds present in all 4 quadrants. EXTREMITIES: Moves all 4 extremities spontaneously. 2+ edema, radial and dorsalis pedis pulses 2/4 bilaterally. No cyanosis. NEUROLOGICAL: Alert and oriented x4. Normal speech. PSYCH: Normal affect, normal mood. SKIN: Warm, dry, normal turgor. No rashes or lesions noted. Course - Re-evaluation Re-evalutation: 07/20/16 14:50 Patient is a 71-year-old male who presents emergency [facility]. Patient appears to be having a CHF exacerbation which he was recently discharged from [facility] on 07/04/2015. Patient was ambulated in the hallways without oxygen desatted down to 84% on room air. Now he is resting in his room comfortably and comes up to about 90% on 4 L. Has has received IV lasix. I discussed his case with hospitalist Dr. Avina is agreed to readmit him to the hospital for CHF exacerbation Per [facility] protocol and guidelines, this case was discussed with supervising physician Dr. Helga Raines prior to admission - Vital Signs Vital signs: Temp Pulse Resp BP Pulse Ox 97.5 F 82 20 109/61 90 L 07/20/16 12:50 07/20/16 12:50 07/20/16 12:50 07/20/16 12:50 07/20/16 12:50 - Laboratory Result Diagrams: 07/20/16 13:00 07/20/16 13:00 Laboratory results interpreted by me: 07/20/16 07/20/16 07/20/16 13:00 13:00 13:00 Hgb 13.4 L RDW 15.8 H Lymphocytes % 11.7 L PT 17.2 H BUN 26 H Glucose 193 H Creatine Kinase 198 H NT-Pro-B Natriuret Pep Urine Blood Ur Leukocyte Esterase 07/20/16 07/20/16 13:00 14:24 Hgb RDW Lymphocytes % PT BUN Glucose Creatine Kinase NT-Pro-B Natriuret Pep 1030 H Urine Blood SMALL H Ur Leukocyte Esterase TRACE H - Diagnostic Test Radiology reviewed: Image reviewed, Reports reviewed - EKG Interpretation by Me Rhythm: A.Fib When compared to previous EKG there are: No significant change Discharge - Discharge Clinical Impression: Hypoxemia CHF exacerbation Qualifiers: Congestive heart failure type: unspecified congestive heart failure type Qualified Code(s): I50.9 - Heart failure, unspecified Condition: Stable Disposition: ADMITTED INPATIENT Admitting Provider: [facility] Admitted: Telemetry
[2016-07-20 13:43] LABS: CREATINE KINASE MB 2.31 ng/mL (<4.55); TROPONIN I < 0.012 ng/mL
[2016-07-20 14:43] LABS: VENOUS BLOOD BASE EXCESS 2.8 mmol/L; VENOUS BLOOD HCO3 29.5 mmol/L (20-32); VENOUS BLOOD PH 7.36 (7.30-7.42)
[2016-07-20 14:44] LABS: APPEARANCE,URINE CLEAR; BILIRUBIN,URINE NEGATIVE (NEGATIVE); GLUCOSE, URINE NEGATIVE (NEGATIVE); KETONES,URINE NEGATIVE (NEGATIVE); LEUKOCYTE ESTERASE,URINE TRACE (NEGATIVE); NITRITE,URINE NEGATIVE (NEGATIVE); PROTEIN,URINE NEGATIVE (NEGATIVE); URINE SPECIFIC GRAVITY 1.009; UROBILINOGEN,URINE NEGATIVE mg/dL (<2.0)
[2016-07-20] MEDS ORDERED: FUROSEMIDE INJ/PF 20 MG/2 ML SDV IV ONE (14:50)
[2016-07-20] MEDS ORDERED: ACETAMINOPHEN 325 MG TABLET PO PRN (15:44)
[2016-07-20] MEDS ORDERED: ONDANSETRON 4 MG TAB.RAPDIS PO PRN (15:44)
[2016-07-20] MEDS ORDERED: LEVALBUTEROL HCL NEB 1.25 MG/3 ML AMPUL NEB PRN (16:15)
[2016-07-20] MEDS ORDERED: PHARMACY COMMUNICATION ORDER MC NR (17:00)
[2016-07-20] MEDS ORDERED: INSULIN ASPART 8 UNIT SQ SCH (17:00)
--- NOTE | 2016-07-20 17:06 | PDOC H&P ---
History of Present Illness Admission Date/PCP: 07/20/16 History of Present Illness: GRACE LEONE is a 71 year old male with past medical history significant for diabetes, hypertension, history of coronary artery disease and heart failure with unknown ejection fraction who was recently hospitalized from 07/02/2016-. Patient reports that he went to the emergency department on Tuesday because he had some pain in his leg and was concerned for a blood clot despite being on Eliquis. He reports that his Doppler was negative. And patient recently developed a cough. [facility] time found patient to be hypoxic in the office. He was sent to the emergency department for evaluation. Patient reports a cough which is productive of greenish phlegm and increased dyspnea on exertion. He denies any fevers or chills, PND, orthopnea, worsening edema, weight gain. Patient is referred to the hospitalist service for congestive heart failure. Past Medical History Cardiac Medical History: Reports: Atrial Fibrillation, Congestive Heart Failure , Coronary Artery Disease, Hypertension Pulmonary Medical History: Reports: Sleep Apnea Endocrine Medical History: Reports: Diabetes Mellitus Type 1, Diabetes Mellitus Type 2 Past Surgical History Past Surgical History: Reports: Coronary Artery Bypass Graft, Other - Mastectomy for breast cancer, partial nephrectomy on the left Social History Smoking Status: Never Smoker Frequency of Alcohol Use: Occasional Hx Recreational Drug Use: No Drugs: None Hx Prescription Drug Abuse: No - Advance Directive Resuscitation Status: Full Code Surrogate healthcare decision maker:: Bobo, Flip Family History Family History: CAD, Malignancy - Breast cancer and uterine cancer and bone cancer Parental Family History Reviewed: Yes Children Family History Reviewed: Yes Sibling(s) Family History Reviewed.: Yes Medication/Allergy Allergies/Adverse Reactions: spironolactone Allergy (Verified 07/20/16 12:56) Review of Systems Constitutional: PRESENT: fatigue. ABSENT: chills, fever(s), headache(s), weight gain, weight loss Eyes: ABSENT: visual disturbances Ears: ABSENT: hearing changes Cardiovascular: PRESENT: dyspnea on exertion. ABSENT: chest pain, edema, orthropnea, palpitations Respiratory: PRESENT: cough, dyspnea, sputum. ABSENT: hemoptysis Gastrointestinal: ABSENT: abdominal pain, bloating, constipation, diarrhea, hematemesis, hematochezia, melena, nausea, vomiting Genitourinary: ABSENT: dysuria, hematuria Musculoskeletal: ABSENT: joint swelling Integumentary: ABSENT: rash, wounds Neurological: ABSENT: abnormal gait, abnormal speech, confusion, dizziness, focal weakness, syncope Psychiatric: ABSENT: anxiety, depression, homidical ideation, suicidal ideation Endocrine: ABSENT: cold intolerance, heat intolerance, polydipsia, polyuria Hematologic/Lymphatic: ABSENT: easy bleeding, easy bruising Physical Exam Vital Signs: Temp Pulse Resp BP Pulse Ox 97.5 F 82 20 109/61 90 L 07/20/16 12:50 07/20/16 12:50 07/20/16 12:50 07/20/16 12:50 07/20/16 12:50 Intake & Output 07/19/16 07/20/16 07/21/16 06:59 06:59 06:59 Weight 147.7 kg General appearance: PRESENT: mild distress, morbidly obese, well-developed, well -nourished Head exam: PRESENT: atraumatic, normocephalic Eye exam: PRESENT: conjunctiva pink, EOMI, PERRLA. ABSENT: scleral icterus Ear exam: PRESENT: normal external ear exam Mouth exam: PRESENT: dry mucosa, tongue midline Neck exam: PRESENT: lymphadenopathy - Anterior cervical. ABSENT: JVD, thyromegaly, tracheal deviation Respiratory exam: PRESENT: prolonged expiratory phas, symmetrical, unlabored, wheezes - Bilateral end expiratory. ABSENT: clear to auscultation shala, crackles , rales, retraction, rhonchi, tachypnea Cardiovascular exam: PRESENT: irregular rhythm, +S1, +S2, systolic murmur. ABSENT: diastolic murmur, gallop, rubs Pulses: PRESENT: normal dorsalis pedis pul Vascular exam: PRESENT: normal capillary refill GI/Abdominal exam: PRESENT: distended - Slightly, normal bowel sounds, soft. ABSENT: firm, guarding, mass, Tong's sign, organolmegaly, rebound, rigid, tenderness Rectal exam: PRESENT: deferred Extremities exam: PRESENT: full ROM, other - 3+ edema left lower extremity, 2+ edema right lower extremity, evidence of chronic venous stasis/lymphedema. ABSENT: calf tenderness, clubbing Neurological exam: PRESENT: alert, awake, oriented to person, oriented to place , oriented to time, oriented to situation, CN II-XII grossly intact. ABSENT: motor sensory deficit Psychiatric exam: PRESENT: appropriate affect, normal mood. ABSENT: homicidal ideation, suicidal ideation Skin exam: PRESENT: dry, intact, warm. ABSENT: cyanosis, rash Results Laboratory Results: 07/20/16 13:00 07/20/16 13:00 07/20/16 07/20/16 07/20/16 13:00 13:00 14:24 WBC 8.8 RBC 4.60 Hgb 13.4 L Hct 40.3 MCV 88 MCH 29.2 MCHC 33.3 RDW 15.8 H Plt Count 197 Seg Neutrophils % 75.5 Lymphocytes % 11.7 L Monocytes % 7.2 Eosinophils % 4.7 Basophils % 0.9 Absolute Neutrophils 6.7 Absolute Lymphocytes 1.0 Absolute Monocytes 0.6 Absolute Eosinophils 0.4 Absolute Basophils 0.1 VBG pH 7.36 VBG pCO2 54.0 VBG HCO3 29.5 VBG Base Excess 2.8 Sodium 142.6 Potassium 4.2 Chloride 103 Carbon Dioxide 26 Anion Gap 14 BUN 26 H Creatinine 1.09 Est GFR ( Amer) > 60 Est GFR (Non-Af Amer) > 60 Glucose 193 H Calcium 8.6 Total Bilirubin 0.8 AST 17 ALT 30 Alkaline Phosphatase 119 Total Protein 6.4 Albumin 3.6 Urine Color Urine Appearance Urine pH Ur Specific [place] Urine Protein Urine Glucose (UA) Urine Ketones Urine Blood Urine Nitrite Ur Leukocyte Esterase Urine WBC (Auto) Urine RBC (Auto) 07/20/16 14:24 WBC RBC Hgb Hct MCV MCH MCHC RDW Plt Count Seg Neutrophils % Lymphocytes % Monocytes % Eosinophils % Basophils % Absolute Neutrophils Absolute Lymphocytes Absolute Monocytes Absolute Eosinophils Absolute Basophils VBG pH VBG pCO2 VBG HCO3 VBG Base Excess Sodium Potassium Chloride Carbon Dioxide Anion Gap BUN Creatinine Est GFR ( Amer) Est GFR (Non-Af Amer) Glucose Calcium Total Bilirubin AST ALT Alkaline Phosphatase Total Protein Albumin Urine Color YELLOW Urine Appearance CLEAR Urine pH 5.0 Ur Specific [place] 1.009 Urine Protein NEGATIVE Urine Glucose (UA) NEGATIVE Urine Ketones NEGATIVE Urine Blood SMALL H Urine Nitrite NEGATIVE Ur Leukocyte Esterase TRACE H Urine WBC (Auto) 2 Urine RBC (Auto) 2 07/20/16 07/20/16 13:00 13:00 Creatine Kinase 198 H CK-MB (CK-2) 2.31 Troponin I < 0.012 NT-Pro-B Natriuret Pep 1030 H Impressions: Chest X-Ray 07/20/16 12:50 IMPRESSION: Cardiomegaly. No overt CHF. Assessment & Plan - Diagnosis (1) Acute hypoxemic respiratory failure Is this a current diagnosis for this admission?: YesPlan: Place patient on oxygen. He [facility] He's been told that he has needed oxygen. Will likely qualify before discharge. (2) CHF exacerbation Qualifiers: Congestive heart failure type: unspecified congestive heart failure type Qualified Code(s): I50.9 - Heart failure, unspecified Is this a current diagnosis for this admission?: YesPlan: Patient may have a small amount of extra fluid on at this time. Will continue his home Bumex, lisinopril, and Imdur. Will obtain echo. (3) Acute bronchitis Qualifiers: Bronchitis organism: unspecified organism Qualified Code(s): J20.9 - Acute bronchitis, unspecified Is this a current diagnosis for this admission?: YesPlan: [place] patient likely has acute bronchitis leading to his hypoxia. Will place patient on prednisone and repeat his chest x-ray. Will place on azithromycin and Augmentin pending repeat chest x-ray. (4) Chronic atrial fibrillation Is this a current diagnosis for this admission?: YesPlan: Patient is currently rate controlled. Patient on Eliquis. (5) Coronary artery disease Qualifiers: Coronary Disease-Associated Artery/Lesion type: [place] artery [place] vs. transplanted heart: [place] heart Associated angina: without angina Qualified Code(s): I25.10 - Atherosclerotic heart disease of [place] coronary artery without angina pectoris Is this a current diagnosis for this admission?: YesPlan: Patient reports it's been greater than 10 years since his last catheter or stress test. He does report that he has chest pain if he doesn't take his isosorbide. (6) Hypertension Qualifiers: Hypertension type: essential hypertension Qualified Code(s): I10 - Essential (primary) hypertension Is this a current diagnosis for this admission?: YesPlan: Continue home medications (7) Obstructive sleep apnea Is this a current diagnosis for this admission?: YesPlan: Patient may use his home CPAP. (8) Type I diabetes mellitus Qualifiers: Diabetes mellitus complication status: with unspecified complications Qualified Code(s): E10.8 - Type 1 diabetes mellitus with unspecified complications Is this a current diagnosis for this admission?: YesPlan: Continue patient's home regimen of place on diabetic diet. Slight scale insulin. (9) Morbid obesity Qualifiers: Obesity type: with alveolar hypoventilation Qualified Code(s): E66.2 - Morbid (severe) obesity with alveolar hypoventilation Is this a current diagnosis for this admission?: YesPlan: Consult dietary (10) Obesity hypoventilation syndrome Is this a current diagnosis for this admission?: Yes - Time Time Spent: 50 to 70 Minutes Medications reviewed and adjusted accordingly: Yes Anticipated discharge: Home Within: within 48 hours - Inpatient Certification Based on my medical assessment, after consideration of the patient's comorbidities, presenting symptoms, or acuity I expect that the services needed warrant INPATIENT care.: Yes I certify that my determination is in accordance with my understanding of Medicare's requirements for reasonable and necessary INPATIENT services [42 CFR 412.3e].: Yes Medical Necessity: Need For Continuous Telemetry Monitoring, Need for Nebulizer Therapy and Monitoring of Response Post Hospital Care: D/C Distribution Driver Documentation
--- NOTE | 2016-07-20 17:20 | EKG REPORT ---
SEVERITY:- ABNORMAL ECG - ATRIAL FIBRILLATION BORDERLINE T WAVE ABNORMALITIES : Confirmed by: Mel Gomez MD 20-Jul-2016 17:19:33
[2016-07-20] MEDS ORDERED: (PENDING PHARMACY ID) (Ranitidine Hcl [Zantac 150 Mg Tablet] 150 MG) PO SCH (18:00)
[2016-07-20] MEDS ORDERED: METFORMIN HCL 500 MG TABLET PO SCH (18:00)
[2016-07-20] MEDS ORDERED: PREDNISONE 20 MG TABLET PO ONE (19:00)
[2016-07-20] MEDS: IPRATROPIUM/ALBUTEROL 0.5-2.5 MG/3 ML AMPUL NEB SCH (19:34)
[2016-07-20] MEDS: DOCUSATE SODIUM 100 MG CAPSULE PO SCH (19:51)
[2016-07-20] MEDS: TAMSULOSIN HCL 0.4 MG CAP.SR.24H PO SCH (19:53)
[2016-07-20] MEDS: AZITHROMYCIN 250 MG TABLET PO SCH (19:54)
[2016-07-20] MEDS: BUMETANIDE 1 MG TABLET PO SCH (19:55)
[2016-07-20] MEDS: APIXABAN 5 MG TABLET PO SCH (19:57)
[2016-07-20 20:00] LABS: ARTERIAL BLOOD BASE EXCESS 3.4 mmol/L
[2016-07-20 20:11] LABS: CREATINE KINASE MB 2.73 ng/mL (<4.55)
[2016-07-20 20:16] LABS: TROPONIN I < 0.012 ng/mL
[2016-07-20] MEDS: INSULIN GLARGINE,HUM.REC.ANLOG 300 UNIT/3 ML INSULN.PEN SUBCUT SCH (23:20)
[2016-07-20] MEDS: GUAIFENESIN 600 MG TABLET.SA PO SCH (23:22)
[2016-07-20] MEDS: FAMOTIDINE 20 MG TABLET PO SCH (23:22)
[2016-07-20] MEDS: AMOXICILLIN TR/POT CLAVULANATE 500-125 MG TAB PO SCH (23:22)
[2016-07-21 02:04] LABS: CREATINE KINASE MB 2.55 ng/mL (<4.55)
[2016-07-21 02:09] LABS: TROPONIN I < 0.012 ng/mL
[2016-07-21] MEDS: AMOXICILLIN TR/POT CLAVULANATE 500-125 MG TAB PO SCH ×3 (06:18→21:30)
[2016-07-21 07:18] LABS: ABSOLUTE LYMPHOCYTES (AUTO) 0.8 10^3/uL (0.5-4.7); ABSOLUTE MONOCYTES (AUTO) 0.2 10^3/uL (0.1-1.4); ABSOLUTE NEUT (AUTO) 5.6 10^3/uL (1.7-8.2); BASOPHILS % (AUTO) 0.3 % (0-2); EOSINOPHILS % (AUTO) 0.1 % (0-6); HEMATOCRIT 37.1 % (37.9-51.0); HEMOGLOBIN 12.4 g/dL (13.5-17.0); HGB HCT DIFFERENCE 0.1; LYMPHOCYTES % (AUTO) 12.2 % (13-45); MEAN CORPUSCULAR HEMOGLOBIN 29.2 pg (27.0-33.4); MEAN CORPUSCULAR HGB CONC 33.5 g/dL (32.0-36.0); MEAN CORPUSCULAR VOLUME 87 fl (80-97); MONOCYTES % (AUTO) 3.4 % (3-13); RED BLOOD COUNT 4.25 10^6/uL (4.35-5.55); RED CELL DISTRIBUTION WIDTH 16.3 % (11.5-14.0); WHITE BLOOD COUNT 6.7 10^3/uL (4.0-10.5)
[2016-07-21 07:37] LABS: ANION GAP 11 (5-19); BLOOD UREA NITROGEN 32 mg/dL (7-20); CALCIUM 8.8 mg/dL (8.4-10.2); CARBON DIOXIDE 27 mmol/L (22-30); CHLORIDE 102 mmol/L (98-107); CREATINE KINASE 153 U/L (55-170); CREATININE RESULT 1.18 mg/dL (0.52-1.25); GLUCOSE 214 mg/dL (75-110); MAGNESIUM 1.8 mg/dL (1.6-2.3); POTASSIUM 4.3 mmol/L (3.6-5.0); SODIUM 139.6 mmol/L (137-145)
[2016-07-21 07:49] LABS: CREATINE KINASE MB 1.78 ng/mL (<4.55)
[2016-07-21 07:56] LABS: TROPONIN I < 0.012 ng/mL
[2016-07-21] MEDS: IPRATROPIUM/ALBUTEROL 0.5-2.5 MG/3 ML AMPUL NEB SCH ×3 (07:59→20:21)
[2016-07-21] MEDS ORDERED: FAMOTIDINE 20 MG TABLET PO SCH (10:00)
[2016-07-21] MEDS ORDERED: (PENDING PHARMACY ID) (Carvedilol [Coreg 25 Mg Tablet] 1 TAB) PO SCH (10:00)
[2016-07-21] MEDS ORDERED: (PENDING PHARMACY ID) (Lisinopril [Zestril] 10 MG) PO SCH (10:00)
[2016-07-21] MEDS ORDERED: (PENDING PHARMACY ID) (Ranitidine Hcl [Ranitidine Hcl] 150 MG) PO SCH (10:00)
[2016-07-21] MEDS: POTASSIUM CHLORIDE 10 MEQ TABLET.SA PO SCH (11:03)
[2016-07-21] MEDS: PREDNISONE 20 MG TABLET PO SCH ×2 (11:04→17:20)
[2016-07-21] MEDS: CHOLECALCIFEROL (D3) 1,000 UNIT TABLET PO SCH (11:04)
[2016-07-21] MEDS: DOCUSATE SODIUM 100 MG CAPSULE PO SCH ×2 (11:04→17:19)
[2016-07-21] MEDS: ASPIRIN 325 MG TABLET, ENT COATED PO SCH (11:05)
[2016-07-21] MEDS: CARVEDILOL 12.5 MG TABLET PO SCH ×2 (11:05→21:30)
[2016-07-21] MEDS: GUAIFENESIN 600 MG TABLET.SA PO SCH ×2 (11:06→21:30)
[2016-07-21] MEDS: ISOSORBIDE MONONITRATE 30 MG TAB.ER.24H PO SCH (11:06)
[2016-07-21] MEDS: ALLOPURINOL 100 MG TABLET PO SCH (11:06)
[2016-07-21] MEDS: MAGNESIUM OXIDE 400 MG TABLET PO SCH (11:07)
[2016-07-21] MEDS: FAMOTIDINE 20 MG TABLET PO SCH ×2 (11:07→21:31)
[2016-07-21] MEDS: LISINOPRIL 10 MG TABLET PO SCH (11:07)
[2016-07-21] MEDS: METFORMIN HCL 500 MG TABLET PO SCH ×2 (11:08→17:19)
[2016-07-21] MEDS: APIXABAN 5 MG TABLET PO SCH ×2 (12:09→17:22)
[2016-07-21] MEDS: BUMETANIDE 1 MG TABLET PO SCH ×2 (12:11→17:20)
[2016-07-21] MEDS ORDERED: INSULIN LISPRO 100 UNIT/ML 3 ML VIAL SUBCUT PRN ×2 (12:38→12:51)
[2016-07-21] MEDS ORDERED: DEXTROSE 40% GEL 15 GM TUBE X 2 PO PRN ×2 (12:38→12:51)
[2016-07-21] MEDS ORDERED: DEXTROSE 50%-WATER SYRINGE 25 GM/50 ML DOSE IV PRN ×2 (12:38→12:51)
[2016-07-21] MEDS ORDERED: DEXTROSE 50%-WATER SYRINGE 12.5 GM/25 ML DOSE IV PRN ×2 (12:38→12:51)
[2016-07-21] MEDS ORDERED: GLUCAGON,HUMAN RECOMB 1 MG INJ IM PRN ×2 (12:38→12:51)
[2016-07-21] MEDS ORDERED: DEXTROSE 40% GEL 15 GM TUBE PO PRN ×2 (12:38→12:51)
--- NOTE | 2016-07-21 14:12 | XCELERA REPORT ---
[address] [address] Transthoracic Echocardiogram Report Name: GRACE LEONE Age: 71 yrs Gender: Male : 1945 Patient Status: Inpatient Patient Location: [id number] Study Date: 07/21/2016 09:46 AM Height: 70 in Weight: 325 lb BSA: 2.6 m2 Procedure: A complete two-dimensional transthoracic echocardiogram was performed (2D, M-mode, spectral and color flow Doppler). The study was technically difficult with many images being suboptimal in quality. Reason For Study: chf, systolic murmur Ordering Physician: XAVIER JENSEN Performed By: Kathy Dior Interpretation Summary Left ventricular systolic function is low normal. The Ejection Fraction estimate is 50-55% Doppler measurements suggest pseudonormalized left ventricular relaxation, which is associated with grade II/IV or mild to moderate diastolic dysfunction There is borderline concentric left ventricular hypertrophy. The left ventricle is grossly normal size. There is septal wall mild hypokinesis The right ventricular systolic function is normal. The left atrium is moderately dilated. The right atrium is mildly dilated. There is a mild amount of mitral regurgitation There is no mitral valve stenosis. There is a trace amount of aortic regurgitation There is no aortic valve stenosis There is a trace or physiologic amount of tricuspid regurgitation Tricuspid regurgitation jet envelope not well defined to measure RV systolic pressure accurately. There is no pericardial effusion. MMode/2D Measurements \T\ Calculations RVDd: 4.3 cm LVIDd: 6.1 cm FS: 28.9 % Ao root diam: 2.5 cm IVSd: 1.0 cm LVIDs: 4.3 cm EDV(Teich): 185.0 ml LVPWd: 0.99 cm ESV(Teich): 83.9 ml Ao root area: 4.8 cm2 EF(Teich): 54.6 % LA dimension: 5.2 cm Doppler Measurements \T\ Calculations MV E max chance: MV P1/2t max chance: Ao V2 max: LV V1 max P.6 cm/sec 158.6 cm/sec 124.9 cm/sec 5.1 mmHg MV A max chance: MV P1/2t: 48.7 msec Ao max PG: LV V1 max: 60.5 cm/sec 6.2 mmHg 113.0 cm/sec MV E/A: 2.6 MVA(P1/2t): 4.5 cm2 MV dec slope: 954.4 cm/sec2 MV dec time: 0.17 sec PA V2 max: TR max chance: 85.4 cm/sec 253.4 cm/sec PA max PG: TR max P.7 mmHg 2.9 mmHg Left Ventricle The left ventricle is grossly normal size. There is borderline concentric left ventricular hypertrophy. Left ventricular systolic function is low normal. The Ejection Fraction estimate is 50-55%. Doppler measurements suggest pseudonormalized left ventricular relaxation, which is associated with grade II/IV or mild to moderate diastolic dysfunction. There is septal wall mild hypokinesis. Right Ventricle The right ventricle is grossly normal size. There is normal right ventricular wall thickness. The right ventricular systolic function is normal. Atria The right atrium is mildly dilated. The left atrium is moderately dilated. Interarterial septum not well visualized and not well dopplered. Cannot comment on ASD/PFO presence. Mitral Valve The mitral valve leaflets are sclerotic, but show no functional abnormalities. There is no mitral valve stenosis. There is a mild amount of mitral regurgitation. Aortic Valve The aortic valve is grossly normal. There is no aortic valve stenosis. There is a trace amount of aortic regurgitation. Tricuspid Valve The tricuspid valve is not well visualized, but is grossly normal. There is no tricuspid stenosis. There is a trace or physiologic amount of tricuspid regurgitation. Tricuspid regurgitation jet envelope not well defined to measure RV systolic pressure accurately. Pulmonic Valve The pulmonic valve is not well visualized. Great Vessels The aortic root is not well visualized. The inferior vena cava appeared normal and decreased > 50% with respiration (RAP 5-10 mmHg). Effusions There is no pericardial effusion. : XAVIER JENSEN > Racheal Fields
[2016-07-21] MEDS ORDERED: INSULIN ASPART 8 UNIT SUBCUT SCH (17:00)
[2016-07-21] MEDS ORDERED: INSULIN LISPRO 100 UNIT/ML 3 ML VIAL SUBCUT SCH ×2 (17:00)
[2016-07-21] MEDS: TAMSULOSIN HCL 0.4 MG CAP.SR.24H PO SCH (17:19)
--- NOTE | 2016-07-21 19:29 | PDOC PROGRESS REPORT ---
Subjective Progress Note for:: 07/21/16 Subjective:: Patient reports he's breathing 75% better today. Patient denies chest pain, abdominal pain, nausea, vomiting, fevers, chills, diarrhea, constipation, headache, new onset weakness. [facility] reports [facility] or tomorrow. Physical Exam Vital Signs: Temp Pulse Resp BP Pulse Ox 98.6 F 103 H 20 134/88 H 94 07/21/16 03:40 07/21/16 03:40 07/21/16 03:40 07/21/16 03:40 07/21/16 03:40 Intake & Output 07/20/16 07/21/16 07/22/16 06:59 06:59 06:59 Intake Total 0 Output Total 700 Balance -700 Weight 149.9 kg Exam: General: Awake alert and oriented x3, no acute respiratory distress HEENT: AT/NC, PERRL, EOMI, oropharynx is moist, pink, no scleral icterus, no conjunctival injection Neck: No JVD, trachea midline Chest: Coarse bilaterally CV: IRR, normal S1 and S2, no murmur, rub, or gallop Abdomen: Soft, nontender to palpation, nondistended, active bowel sounds; no rebound, rigidity, or guarding Extremities: No cyanosis; + digital clubbing;3+edema Neuro: Cranial nerves II through XII are grossly intact without focal deficits; awake alert and oriented x3 Psych: Normal mood and affect Results Laboratory Results: 07/21/16 07:09 07/20/16 07/21/16 18:43 07:09 WBC 6.7 RBC 4.25 L Hgb 12.4 L Hct 37.1 L MCV 87 MCH 29.2 MCHC 33.5 RDW 16.3 H Plt Count 184 Seg Neutrophils % 84.0 H Lymphocytes % 12.2 L Monocytes % 3.4 Eosinophils % 0.1 Basophils % 0.3 Absolute Neutrophils 5.6 Absolute Lymphocytes 0.8 Absolute Monocytes 0.2 Absolute Eosinophils 0.0 Absolute Basophils 0.0 Carbonic Acid 1.39 H HCO3/H2CO3 Ratio 20:1 ABG pH 7.41 ABG pCO2 46.3 H ABG pO2 59.7 L ABG HCO3 28.8 H ABG O2 Saturation 91.0 L ABG Base Excess 3.4 FiO2 5L 07/20/16 07/20/16 07/21/16 19:30 19:30 01:29 Creatine Kinase 232 H 212 H CK-MB (CK-2) 2.73 Troponin I < 0.012 07/21/16 01:29 Creatine Kinase CK-MB (CK-2) 2.55 Troponin I < 0.012 Impressions: Lung Scan-VQ NM 07/20/16 00:00 IMPRESSION: NORMAL VENTILATION-PERFUSION LUNG SCAN. NEGATIVE FOR PULMONARY EMBOLI. Chest X-Ray 07/20/16 12:50 IMPRESSION: Cardiomegaly. No overt CHF. Assessment & Plan - Diagnosis (1) Acute hypoxemic respiratory failure Is this a current diagnosis for this admission?: YesPlan: Place patient on oxygen. He apparently [facility]. He's been told that he has needed oxygen. Will likely qualify before discharge. (2) CHF exacerbation Qualifiers: Congestive heart failure type: unspecified congestive heart failure type Qualified Code(s): I50.9 - Heart failure, unspecified Is this a current diagnosis for this admission?: YesPlan: Echo done on 07/21/2016 reveals an EF of 50-55% with grade 2 diastolic dysfunction. Will continue his home Bumex, lisinopril, and Imdur. (3) Acute bronchitis Qualifiers: Bronchitis organism: unspecified organism Qualified Code(s): J20.9 - Acute bronchitis, unspecified Is this a current diagnosis for this admission?: YesPlan: Much improved. Will decrease prednisone (4) Chronic atrial fibrillation Is this a current diagnosis for this admission?: Yes (5) Coronary artery disease Qualifiers: Coronary Disease-Associated Artery/Lesion type: [place] artery [place] vs. transplanted heart: [place] heart Associated angina: without angina Qualified Code(s): I25.10 - Atherosclerotic heart disease of [place] coronary artery without angina pectoris Is this a current diagnosis for this admission?: YesPlan: Patient reports it's been greater than 10 years since his last catheter or stress test. He does report that he has chest pain if he doesn't take his isosorbide. (6) Hypertension Qualifiers: Hypertension type: essential hypertension Qualified Code(s): I10 - Essential (primary) hypertension Is this a current diagnosis for this admission?: Yes (7) Obstructive sleep apnea Is this a current diagnosis for this admission?: YesPlan: Patient may use his home CPAP. (8) Type I diabetes mellitus Qualifiers: Diabetes mellitus complication status: with unspecified complications Qualified Code(s): E10.8 - Type 1 diabetes mellitus with unspecified complications Is this a current diagnosis for this admission?: Yes (9) Morbid obesity Qualifiers: Obesity type: with alveolar hypoventilation Qualified Code(s): E66.2 - Morbid (severe) obesity with alveolar hypoventilation Is this a current diagnosis for this admission?: Yes (10) Obesity hypoventilation syndrome Is this a current diagnosis for this admission?: Yes - Time Time Spent with patient: 25-34 minutes Medications reviewed and adjusted accordingly: Yes Anticipated discharge: Home Within: within 24 hours, within 48 hours
[2016-07-21] MEDS: AZITHROMYCIN 250 MG TABLET PO SCH (21:29)
[2016-07-21] MEDS: INSULIN GLARGINE,HUM.REC.ANLOG 300 UNIT/3 ML INSULN.PEN SUBCUT SCH (21:29)
[2016-07-21] MEDS ORDERED: ATORVASTATIN CALCIUM 10 MG TABLET PO SCH (22:00)
[2016-07-22 05:26] LABS: ANION GAP 11 (5-19); BLOOD UREA NITROGEN 32 mg/dL (7-20); CALCIUM 9.1 mg/dL (8.4-10.2); CARBON DIOXIDE 29 mmol/L (22-30); CHLORIDE 101 mmol/L (98-107); CREATININE RESULT 1.06 mg/dL (0.52-1.25); GLUCOSE 217 mg/dL (75-110); SODIUM 141.3 mmol/L (137-145)
[2016-07-22] MEDS: AMOXICILLIN TR/POT CLAVULANATE 500-125 MG TAB PO SCH ×2 (05:33→15:03)
[2016-07-22] MEDS: METFORMIN HCL 500 MG TABLET PO SCH (08:31)
[2016-07-22] MEDS: IPRATROPIUM/ALBUTEROL 0.5-2.5 MG/3 ML AMPUL NEB SCH ×2 (08:36→13:37)
[2016-07-22] MEDS: BUMETANIDE 1 MG TABLET PO SCH (09:31)
[2016-07-22] MEDS: POTASSIUM CHLORIDE 10 MEQ TABLET.SA PO SCH (09:32)
[2016-07-22] MEDS: ASPIRIN 325 MG TABLET, ENT COATED PO SCH (09:33)
[2016-07-22] MEDS: CHOLECALCIFEROL (D3) 1,000 UNIT TABLET PO SCH (09:33)
[2016-07-22] MEDS: GUAIFENESIN 600 MG TABLET.SA PO SCH (09:34)
[2016-07-22] MEDS: ALLOPURINOL 100 MG TABLET PO SCH (09:34)
[2016-07-22] MEDS: LISINOPRIL 10 MG TABLET PO SCH (09:35)
[2016-07-22] MEDS: MAGNESIUM OXIDE 400 MG TABLET PO SCH (09:35)
[2016-07-22] MEDS: ISOSORBIDE MONONITRATE 30 MG TAB.ER.24H PO SCH (09:36)
[2016-07-22] MEDS: FAMOTIDINE 20 MG TABLET PO SCH (09:36)
[2016-07-22] MEDS: CARVEDILOL 12.5 MG TABLET PO SCH (09:36)
[2016-07-22] MEDS: DOCUSATE SODIUM 100 MG CAPSULE PO SCH (09:36)
[2016-07-22] MEDS: APIXABAN 5 MG TABLET PO SCH (09:37)
[2016-07-22] MEDS ORDERED: PREDNISONE 20 MG TABLET PO SCH (10:00)
[2016-07-22 10:51] VITALS: BP 155/85
--- NOTE | 2016-07-22 15:12 | PDOC DISCHARGE SUMMARY ---
General - Admit/Disc Date/PCP Admission Date/Primary Care Provider: 07/20/16 15:44 Discharge Date: 07/22/16 - Discharge Diagnosis (1) Acute hypoxemic respiratory failure Is this a current diagnosis for this admission?: Yes (2) CHF exacerbation Is this a current diagnosis for this admission?: Yes (3) Acute bronchitis Is this a current diagnosis for this admission?: Yes (4) Chronic atrial fibrillation Is this a current diagnosis for this admission?: Yes (5) Coronary artery disease Is this a current diagnosis for this admission?: Yes (6) Hypertension Is this a current diagnosis for this admission?: Yes (7) Obstructive sleep apnea Is this a current diagnosis for this admission?: Yes (8) Type I diabetes mellitus Is this a current diagnosis for this admission?: Yes (9) Morbid obesity Is this a current diagnosis for this admission?: Yes (10) Obesity hypoventilation syndrome Is this a current diagnosis for this admission?: Yes - Additional Information Resuscitation Status: Full Code Discharge Diet: Cardiac, Diabetic Discharge Activity: Activity As Tolerated, Balance Activity w/Rest, Weigh Daily Home Medications: Allopurinol [Zyloprim 100 mg Tablet] 100 mg PO DAILY 07/20/16 Apixaban [Eliquis 5 mg Tablet] 5 mg PO BID 07/20/16 Atorvastatin Calcium [Lipitor 10 mg Tablet] 10 mg PO QHS 07/20/16 Bumetanide [Bumex 2 mg Tablet] 2 mg PO BID 07/20/16 Carvedilol [Coreg 25 mg Tablet] 1 tab PO Q12 07/20/16 Cholecalciferol (Vitamin D3) [Vitamin D3 1000 Unit Tablet] 2,000 unit PO DAILY 07/20/16 Docusate Sodium [Colace 100 mg Capsule] 100 mg PO BID 07/20/16 Insulin Aspart [Novolog Insulin (Aspart) 100 unit/mL] 8 unit SUBCUT WSUPPER Insulin Glargine,Hum.rec.anlog [Lantus Insulin 100 Unit/1 ml 10 ml] 36 unit SUBCUT QHS 07/20/16 Isosorbide Mononitrate [Isosorbide Mononitrate ER] PO DAILY 07/20/16 Lisinopril [Prinivil 10 mg Tablet] 10 mg PO DAILY 07/20/16 Magnesium Oxide 400 mg PO DAILY 07/20/16 Metformin HCl [Glucophage] 1,000 mg PO BID 07/20/16 Ranitidine HCl 150 mg PO BID 07/20/16 Tamsulosin HCl [Flomax 0.4 mg Cap.sr] 0.4 mg PO DAILY 07/20/16 Albuterol Sulfate [Ventolin HFA MDI 18 GM] 1 - 2 puff IH Q4H PRN #1 mdi Allopurinol [Zyloprim 100 mg Tablet] 100 mg PO DAILY tablet 07/22/16 Amox Tr/Potassium Clavulanate [Augmentin 875-125 mg Tablet] 1 tab PO BID #16 tablet 07/22/16 Apixaban [Eliquis 5 mg Tablet] 5 mg PO BID tablet 07/22/16 Azithromycin 500 mg PO DAILY #8 tablet 07/22/16 Bumetanide [Bumex 1 mg Tablet] 2 mg PO BID tablet 07/22/16 Docusate Sodium [Colace 100 mg Capsule] 100 mg PO BID capsule 07/22/16 Prednisone [Deltasone 20 mg Tablet] 20 mg PO BID #20 tablet 07/22/16 Tamsulosin HCl [Flomax 0.4 mg Cap.sr] 0.4 mg PO PCSUPPER cap.sr.24h 07/22/16 History of Present Illness History of Present Illness: GRACE LEONE is a 71 year old male with past medical history significant for diabetes, hypertension, history of coronary artery disease and heart failure with unknown ejection fraction who was recently hospitalized from 07/02/2016-. Patient reports that he went to the emergency department on Tuesday because he had some pain in his leg and was concerned for a blood clot despite being on Eliquis. He reports that his Doppler was negative. And patient recently developed a cough. [facility] at that time found patient to be hypoxic in the office. He was sent to the emergency department for evaluation. Patient reports a cough which is productive of greenish phlegm and increased dyspnea on exertion. He denies any fevers or chills, PND, orthopnea, worsening edema, weight gain. Patient is referred to the hospitalist service for congestive heart failure. Hospital Course Hospital Course: Patient was admitted and started on oral Augmentin and oral azithromycin along with prednisone. Patient had a small area that was suspicious for previous pneumonia and did present with acute bronchitis. Patient continued to improve and oxygen was all ready being established for patient at home. He is doing well and stable for discharge home. Physical Exam Vital Signs: Temp Pulse Resp BP Pulse Ox 97.8 F 90 18 145/73 H 93 07/22/16 04:16 07/22/16 08:36 07/22/16 08:36 07/22/16 04:16 07/22/16 08:36 Intake & Output 07/21/16 07/22/16 07/23/16 06:59 06:59 06:59 Intake Total 0 973 Output Total 700 2200 Balance -700 -1227 Weight 149.9 kg 154.1 kg Exam: General: Awake alert and oriented x3, no acute respiratory distress HEENT: AT/NC, PERRL, EOMI, oropharynx is moist, pink, no scleral icterus, no conjunctival injection Neck: No JVD, trachea midline Chest: Clear to auscultation bilaterally CV: IRR, normal S1 and S2, no murmur, rub, or gallop Abdomen: Soft, nontender to palpation, nondistended, active bowel sounds; no rebound, rigidity, or guarding Extremities: No cyanosis; + digital clubbing;2+edema Neuro: Cranial nerves II through XII are grossly intact without focal deficits; awake alert and oriented x3 Psych: Normal mood and affect Results Laboratory Results: 07/21/16 07:09 07/22/16 04:09 07/22/16 04:09 Sodium 141.3 Potassium 4.0 Chloride 101 Carbon Dioxide 29 Anion Gap 11 BUN 32 H Creatinine 1.06 Est GFR ( Amer) > 60 Est GFR (Non-Af Amer) > 60 Glucose 217 H Calcium 9.1 07/20/16 07/20/16 07/21/16 19:30 19:30 01:29 Creatine Kinase 232 H 212 H CK-MB (CK-2) 2.73 Troponin I < 0.012 NT-Pro-B Natriuret Pep 07/21/16 07/21/16 07/21/16 01:29 07:09 07:09 Creatine Kinase 153 CK-MB (CK-2) 2.55 1.78 Troponin I < 0.012 < 0.012 NT-Pro-B Natriuret Pep 1380 H Impressions: Lung Scan-VQ NM 07/20/16 00:00 IMPRESSION: NORMAL VENTILATION-PERFUSION LUNG SCAN. NEGATIVE FOR PULMONARY EMBOLI. Chest X-Ray 07/20/16 12:50 IMPRESSION: Cardiomegaly. No overt CHF. Qualifiers PATEINT BEING DISCHARGED WITH ANY OF THE FOLLOWING DIAGNOSIS?: Heart Failure HF Pt being discharged on ACEI for LVEF less than 40%?: Yes HF Pt being discharged on ARBS for LVEF less than 40%?: No Reason(s) for not prescribing ARBS:: Not indicated - On Anup HF Pt with Afib discharged with Warfarin?: No Reason(s) for not prescribing Warfarin:: Not indicated - On Eliquis HF Pt discharged on evidence-based Beta Gilma?: Yes Plan Time Spent: Less than 30 Minutes
== END 2016-07-22 15:30 | disposition home or self-care (01) | DRG 189 ==
LOC: ER 12:37 → EH 15:44 → UNDOADMIN 15:48 → EH 15:48 → 4N 21:05
PROVIDERS: ADMIT Emergency Medicine; ATTEND Emergency Medicine
DX: J96.01 Acute respiratory failure with hypoxia (principal); E66.2 Morbid (severe) obesity with alveolar hypoventilation; Z68.42 Body mass index [BMI] 45.0-49.9, adult; J20.9 Acute bronchitis, unspecified; I50.9 Heart failure, unspecified; I11.0 Hypertensive heart disease with heart failure; E78.5 Hyperlipidemia, unspecified; I48.2 Chronic atrial fibrillation; I25.10 Atherosclerotic heart disease of native coronary artery without angina pectoris; E10.8 Type 1 diabetes mellitus with unspecified complications; Z79.01 Long term (current) use of anticoagulants; Z79.4 Long term (current) use of insulin; Z79.51 Long term (current) use of inhaled steroids; Z79.899 Other long term (current) drug therapy; Z85.3 Personal history of malignant neoplasm of breast; Z95.1 Presence of aortocoronary bypass graft; Z90.11 Acquired absence of right breast and nipple; Z90.5 Acquired absence of kidney
CPT/HCPCS: 36415; 36600; 71010; 71020; 78582; 80048; 80053; 81001; 82550; 82553; 82803; 82962; 83735; 83880; 84484; 85025; 85610; 87040; 93005; 93010; 93306; 94640; 94660; 99284; A9540; A9567; J1815; J3490; J7512; J7620; Q9969

== ENCOUNTER → 2017-08-18 | Outpatient (CLI) | payer OTHER ==
--- NOTE | 2017-08-19 08:01 | XCELERA REPORT ---
[address] [address] Lower Extremity Venous Evaluation Name: GRACE LEONE Age: 72 yrs Gender: Male : 1945 Patient Status: Outpatient Patient Location: Study Date: 08/18/2017 11:19 AM Procedure: A bilateral duplex scan of the lower extremity veins was performed. The evaluation included responses to compression and other maneuvers with patient in the supine and standing positions to assess venous insufficiency. Reason For Study: VENOUS INSUFFICIENCY Ordering Physician: SAMMY JORGE Performed By: Kathy Dior Right Sided Venous Evaluation Deep venous system evaluation shows patent veins with no obstruction or significant reflux identified. Sapheno Femoral junction: no reflux. Femoral vein reflux: no reflux. Greater Saphenous vein, Proximal thigh: reflux: no reflux. Greater Saphenous vein, Distal thigh: reflux:no reflux. Greater Saphenous vein, Proximal below knee: reflux: 3 seconds,. No significant Perforators identified. Considerable subcutaneous edema noted. Left Sided Venous Evaluation Deep venous system evaluation shows patent veins with no obstruction or significant reflux identified. Sapheno Femoral junction: no reflux. Femoral vein reflux: no reflux. Greater Saphenous vein, Proximal thigh: reflux: no reflux. Greater Saphenous vein, Mid thigh: reflux: 1.5 second reflux. Greater Saphenous vein, Proximal below knee: reflux. No significant Perforators identified. Considerable subcutaneous edema noted. Interpretation Summary No duplex evidence of DVT or obstruction in the bilateral lower extremities. Study challenging due to body habitus, 5'10", 325 pounds. Leg edema noted. Limited superficial reflux as indicated. : SAMMY JORGE > Froylan Jimenez
== END ==
LOC: SP 10:32
PROVIDERS: ATTEND Clinical Nurse Specialist Adult Health
DX: I87.2 Venous insufficiency (chronic) (peripheral) (principal)
CPT/HCPCS: 93970

== ENCOUNTER 2018-02-06 08:08 | Day surgery (SDC) | payer OTHER ==
[~2018-02-06 08:08] MED LIST: PROPOFOL INJ 200 MG/20 ML VIAL IV ONE
[2018-02-06 09:56] VITALS: BP 122/67
--- NOTE | 2018-02-06 13:28 | Operative Report ---
Operative Report DATE OF SURGERY: 02/06/18 Operative Report: The risks, benefits and alternatives of the procedure including the risk of bleeding, perforation requiring surgery are explained to the patient in detail and informed consent is obtained. Patient is brought back to the endoscopy suite and placed in a left, lateral decubital position. Timeout was called. Propofol medication is administered. Rectal examination is done which did not reveal any masses, tears or fissures. An Olympus videoscope was inserted the patient's rectum. The scope was then carefully advanced all the way to the cecum. The cecum was identified by the usual anatomical landmarks including the ileocecal valve as well as appendiceal office. Prep was somewhat poor. The scope was then sequentially pulled back via the rest segments of the colon including the ascending colon, hepatic flexure, transverse colon, splenic flexure, descending colon and finally into the rectosigmoid portions of the colon. Retroflexion maneuvers performed. PREOPERATIVE DIAGNOSIS: Personal history of polyps POSTOPERATIVE DIAGNOSIS: Right colon inflammation status post biopsy rule out collagenous, lymphocytic, microscopic colitis. Internal hemorrhoids OPERATION: Colonoscopy with biopsy SURGEON: OLGA LIDIA JAMES ANESTHESIA: LMAC TISSUE REMOVED OR ALTERED: As noted above. COMPLICATIONS: None. ESTIMATED BLOOD LOSS: None. INTRAOPERATIVE FINDINGS: As noted above. PROCEDURE: Patient tolerated the procedure well. No immediate postprocedure complications are noted. Patient discharged in good condition. Discharge date 02/06/2018. Discharge diet: Regular. Discharge activity: Regular. 2-3-week follow-up to discuss findings. Patient is instructed call the office or proceed to the emergency room should there be any further problems or questions. Wait on the pathology. 5-year surveillance colonoscopy.
== END 2018-02-06 10:00 | disposition home or self-care (01) ==
LOC: END 08:08
PROVIDERS: ATTEND Internal Medicine Gastroenterology
DX: K52.9 Noninfective gastroenteritis and colitis, unspecified (principal); K64.8 Other hemorrhoids; Z86.010 Personal history of colon polyps; J44.9 Chronic obstructive pulmonary disease, unspecified; E11.9 Type 2 diabetes mellitus without complications; D64.9 Anemia, unspecified; I48.91 Unspecified atrial fibrillation; I11.0 Hypertensive heart disease with heart failure; I50.40 Unspecified combined systolic (congestive) and diastolic (congestive) heart failure; I25.5 Ischemic cardiomyopathy; I25.10 Atherosclerotic heart disease of native coronary artery without angina pectoris; Z79.82 Long term (current) use of aspirin; Z79.899 Other long term (current) drug therapy; Z79.01 Long term (current) use of anticoagulants; Z79.4 Long term (current) use of insulin; Z12.11 Encounter for screening for malignant neoplasm of colon; I25.2 Old myocardial infarction; Z88.8 Allergy status to other drugs, medicaments and biological substances; Z85.3 Personal history of malignant neoplasm of breast
CPT/HCPCS: 45380; 811; 82962; 88305; J2704

== ENCOUNTER 2019-01-20 19:07 | Emergency (ER) | payer OTHER, MEDICARE ==
--- NOTE | 2019-01-20 20:33 | RADIOLOGY REPORT (SQ) ---
3 VIEWS OF RIGHT ANKLE EXAM DATE: 01/20/2019 12:00 AM CDT HISTORY: Bone tenderness. COMPARISON: None. FINDINGS: The ankle mortise is preserved on these nonstress views. No acute fracture is seen. There is mild surrounding soft tissue swelling. Generalized osteopenia is present. Vascular calcifications are present. Large posterior calcaneal spur. IMPRESSION: No acute fracture.
--- NOTE | 2019-01-20 20:33 | RADIOLOGY REPORT (SQ) ---
EXAM DESCRIPTION: XR FOOT 3 OR MORE VIEWS COMPLETED DATE/TME: 01/20/2019 00:00 CLINICAL HISTORY: 73 years, Male, bone tenderness COMPARISON: None. NUMBER OF VIEWS: 3 TECHNIQUE: 3 views right foot LIMITATIONS: None. FINDINGS: Osteopenia. Vascular calcifications. Prominent calcaneal spurs. Negative for acute fracture or dislocation. IMPRESSION: No acute osseous abnormality copyright 2010 [employer]- All Rights Reserved
[2019-01-20] MEDS ORDERED: ACETAMINOPHEN 325 MG TABLET PO ONE (20:42)
--- NOTE | 2019-01-20 20:44 | ER Document Report ---
HPI - HPI Time Seen by Provider: 01/20/19 20:00 Pain Level: 4 Notes: Patient is a 73-year-old male with an extensive cardiac history who is routinely on oxygen at 2 L via nasal cannula and type 2 diabetes who presents complaining of right medial ankle pain status post injury yesterday. Patient states that he was walking down the steps when he slipped on the last 1 and landed on his feet fairly hard. Patient states that he may have twisted his ankle in the process. The pain does not radiate. He has not noticed any bruising or obvious swelling otherwise. Patient states that he normally has issues with edema to his legs bilaterally and is constantly wearing some type of compression device and has not noticed any significant changes from baseline. Denies any headache, fever, neck pain, URI, sore throat, chest pain, palpitations, syncope, cough, acute shortness of breath, wheeze, dyspnea, abdominal pain, nausea/vomiting/diarrhea, urinary retention, dysuria, hematuria, loss of control of bowel or bladder, numbness/tingling, saddle anesthesia, muscle paralysis/weakness, or rash. - ROS Systems Reviewed and Negative: Yes All other systems reviewed and negative - MUSCULOSKELETAL Musculoskeletal: REPORTS: Extremity pain - right foot and ankle Past Medical History - Social History Smoking Status: Unknown if Ever Smoked Family History: CAD, Malignancy - Breast cancer and uterine cancer and bone cancer Patient has suicidal ideation: No Patient has homicidal ideation: No - Past Medical History Cardiac Medical History: Reports: Hx Atrial Fibrillation, Hx Congestive Heart Failure, Hx Coronary Artery Disease, Hx Hypertension Denies: Hx Heart Attack Pulmonary Medical History: Reports: Hx Pneumonia, Hx Sleep Apnea Denies: Hx Asthma, Hx Bronchitis, Hx COPD Neurological Medical History: Denies: Hx Cerebrovascular Accident, Hx Seizures Endocrine Medical History: Reports: Hx Diabetes Mellitus Type 1, Hx Diabetes Mellitus Type 2 Renal/ Medical History: Denies: Hx Peritoneal Dialysis Musculoskeletal Medical History: Reports Hx Arthritis Past Surgical History: Reports: Hx Cardiac Surgery, Hx Coronary Artery Bypass Graft, Hx Kidney (Renal Surgery), Hx Orthopedic Surgery, Other - Mastectomy for breast cancer, partial nephrectomy on the left - Immunizations Hx Diphtheria, Pertussis, Tetanus Vaccination: No Hx Pneumococcal Vaccination: 05/09/15 Vertical Provider Document - CONSTITUTIONAL Agree With Documented VS: Yes Notes: PHYSICAL EXAMINATION: GENERAL: Well-appearing, well-nourished and in no acute distress. LUNGS: Breath sounds clear to auscultation bilaterally and equal. No wheezes rales or rhonchi. HEART: Regular rate and rhythm without murmurs, rubs, gallops. Musculoskeletal: Rt foot/ankle: No ecchymosis, gross swelling, or deformity. FROM to passive/active. Strength 5+/5. N/V intact distal. + tenderness to the medial malleolus. No bony tenderness of the foot. Achilles intact. Lis Franc maneuver neg. Anterior drawer neg. Extremities: 2+ pitting edema b/l LE's. Peripheral pulses 1+. Capillary refill less than 3 seconds. NEUROLOGICAL: Normal speech, limping gait. Normal sensory, motor exams PSYCH: Normal mood, normal affect. SKIN: Warm, Dry, normal turgor, no rashes or lesions noted. - INFECTION CONTROL TRAVEL OUTSIDE OF THE [place] IN LAST 30 DAYS: No Course - Re-evaluation Re-evalutation: 01/20/19 20:44 Patient is an afebrile, well-hydrated, 73-year-old male who presents to the ED with Rt medial ankle pain which I suspect to be a sprain versus strain. Vitals are acceptable without any significant tachycardia, tachypnea, or hypoxia. PE is otherwise unremarkable for any neurovascular compromise, obvious tendon/ligament rupture, obvious fracture/dislocation, septic joint. X-ray was unremarkable for any acute pathology. Tylenol given PO. Patient is nontoxic- appearing. Patient is able to ambulate and weight-bear although he is limping. No other labs or imaging warranted at this time based on H&P. Conservative measures otherwise for symptoms. Recheck with your PCM in 3-5 days. Consider consult orthopedics. Return to the ED with any worsening/concerning symptoms otherwise as reviewed in discharge. Patient is in agreement. Discharge - Discharge Clinical Impression: Right ankle pain Qualifiers: Chronicity: acute Qualified Code(s): M25.571 - Pain in right ankle and joints of right foot Condition: Stable Disposition: HOME, SELF-CARE Additional Instructions: Rest, Ice, Compression, Elevation Tylenol as needed Light stretches daily Strength exercises as able Moist heat and massage may help F/u with your PCP in 3-5 days for a recheck Consider consult(s) with Orthopedics/physical therapy for ongoing/worsening symptoms Return to the ED with any worsening symptoms and/or development of fever, headache, chest pain, palpitations, syncope, shortness of breath, trouble breathing, abdominal pain, n/v/d, muscle weakness/paralysis, numbness/tingling, swelling, redness, or other worsening symptoms that are concerning to you. Forms: Elevated Blood Pressure Referrals: [facility] [Primary [facility] Provider] - Follow up as needed [facility] [Provider Group] - Follow up as needed
[2019-01-20 20:47] VITALS: BP 120/93
== END 2019-01-20 20:53 | disposition home or self-care (01) ==
LOC: ER 19:07
DX: M25.571 Pain in right ankle and joints of right foot (principal); M79.671 Pain in right foot; W10.9XXA Fall (on) (from) unspecified stairs and steps, initial encounter; I25.10 Atherosclerotic heart disease of native coronary artery without angina pectoris; I10 Essential (primary) hypertension; E11.9 Type 2 diabetes mellitus without complications; R60.0 Localized edema; Z95.1 Presence of aortocoronary bypass graft; Z85.3 Personal history of malignant neoplasm of breast; Z99.81 Dependence on supplemental oxygen
CPT/HCPCS: 99283

== ENCOUNTER 2019-02-20 09:52 | Inpatient (IN) | payer OTHER, MEDICARE ==
--- NOTE | 2019-02-20 10:26 | ER Document Report ---
ED Respiratory Problem - General Chief Complaint: Shortness Of Breath Stated Complaint: DIFFICULTY BREATHING Time Seen by Provider: 02/20/19 10:00 Primary Care Provider: SHIVANI VILLALTA [Primary Care Provider] - Follow up as needed Notes: 73-year-old male with a history of CHF presents to the ER complaining of shortness of breath for the last 2 to 3 days. The patient denies fever chills or sore throat. States he has had a cough and felt very congested. He is tried [id number] Mucinex to try to clear his congestion but has not helped states he cannot lay flat. He gets short of breath on exertion. He is on 2 L nasal cannula as needed oxygen usually he does not need it all the time but for the last 2 days he is worn it all the time. Patient presents to the triage area pale dyspneic with sats in the 70s. Patient was brought immediately back and placed on oxygen. He was working to breathe. I was called immediately to bedside. TRAVEL OUTSIDE OF THE [place] IN LAST 30 DAYS: No - Related Data Allergies/Adverse Reactions: spironolactone Allergy (Verified 02/20/19 11:48) Past Medical History - Social History Smoking Status: Never Smoker Frequency of alcohol use: Occasional Drug Abuse: None Family History: CAD, Malignancy - Breast cancer and uterine cancer and bone cancer Patient has suicidal ideation: No Patient has homicidal ideation: No - Past Medical History Cardiac Medical History: Reports: Hx Atrial Fibrillation, Hx Congestive Heart Failure, Hx Coronary Artery Disease, Hx Hypertension Denies: Hx Heart Attack Pulmonary Medical History: Reports: Hx Pneumonia, Hx Sleep Apnea Denies: Hx Asthma, Hx Bronchitis, Hx COPD Neurological Medical History: Denies: Hx Cerebrovascular Accident, Hx Seizures Endocrine Medical History: Reports: Hx Diabetes Mellitus Type 1, Hx Diabetes Mellitus Type 2 Renal/ Medical History: Denies: Hx Peritoneal Dialysis Musculoskeletal Medical History: Reports Hx Arthritis Past Surgical History: Reports: Hx Cardiac Surgery, Hx Coronary Artery Bypass Graft, Hx Kidney (Renal Surgery), Hx Orthopedic Surgery, Other - Mastectomy for breast cancer, partial nephrectomy on the left - Immunizations Hx Diphtheria, Pertussis, Tetanus Vaccination: No Hx Pneumococcal Vaccination: 05/09/15 Review of Systems - Review of Systems Constitutional: denies: Chills, Fever EENT: Nose congestion. denies: Throat pain Cardiovascular: Orthopnea, Dyspnea, Edema. denies: Chest pain Respiratory: Cough, Short of breath. denies: Hemoptysis, Wheezing Gastrointestinal: denies: Nausea, Vomiting Genitourinary: denies: Burning, Flank pain Male Genitourinary: No symptoms reported Musculoskeletal: No symptoms reported Neurological/Psychological: No symptoms reported. denies: Headaches -: Yes All other systems reviewed and negative Physical Exam - Vital signs Vitals: Temp Pulse Resp BP Pulse Ox 98.3 F 90 28 H 120/65 76 L 02/20/19 09:56 02/20/19 09:56 02/20/19 09:56 02/20/19 09:56 02/20/19 09:56 - Notes Notes: GENERAL_APPEARANCE: well_nourished, alert, cooperative, obvious respiratory distress and accessory muscle use VITALS: reviewed, see vital signs table. HEAD: no_swelling\tenderness on the head. EYES: PERRL, EOMI, conjunctiva_clear. NOSE: Clear charge MOUTH: (-)decreased moisture. THROAT: no_tonsilar_inflammation, no_airway_obstruction. no_lymphadenopathy NECK: supple, no_neck_tenderness, (-)thyromegaly. BACK: no_back_tenderness. CHEST_WALL: no_chest_tenderness. LUNGS: no_wheezing, bibasilar rales, no_rhonchi, moderate accessory muscle use, poor air exchange bilateral. HEART: normal_rate, normal_rhythm, normal_S1, normal_S2, (-)S3, (-)S4, no_murmur, no_rub. ABDOMEN: normal_BS, soft, no_abd_tenderness, (-)guarding, (-)rebound, no_organomegaly, no_abd_masses. EXTREMITIES: strength 5/5 in all_extremities, good pulses in all_extremities, no_swelling\tenderness in the extremities, 3+ pedal_edema. SKIN: warm, dry, good_color, no_rash. MENTAL_STATUS: speech_clear, oriented_X_3, normal_affect, responds_appropr iately to questions. Course - Re-evaluation Re-evalutation: 02/20/19 10:26 73-year-old male history of CHF presents with worsening dyspnea over the last 2 to 3 days. Patient is having orthopnea dyspnea on exertion. He is having lower extremity edema. He is on Bumex for diuresis. He did not really notice any changes in his urine output. 02/20/19 13:07 Patient is doing well on BiPAP. We will give him 80 of Lasix. His BNP is elevated he has signs of failure on his chest x-ray. Will consult hospitalist service for admission. He had a very mildly bumped troponin but this is likely due to just overall demand ischemia due to him being hypoxic on the way to the hospital. - Vital Signs Vital signs: Temp Pulse Resp BP Pulse Ox 98.3 F 90 20 111/66 91 L 02/20/19 09:56 02/20/19 09:56 02/20/19 12:02 02/20/19 12:02 02/20/19 12:02 - Laboratory Result Diagrams: 02/20/19 10:22 02/20/19 10:22 Laboratory results interpreted by me: 02/20/19 02/20/19 02/20/19 10:22 10:22 10:22 RBC 3.90 L Hgb 11.2 L Hct 34.3 L RDW 17.5 H Lymph % (Auto) 10.7 L Seg Neutrophils % 81.0 H PT 24.0 H BUN 32 H Creatinine 1.32 H Est GFR (MDRD) Non-Af 53 L Glucose 207 H Creatine Kinase 50 L NT-Pro-B Natriuret Pep 02/20/19 10:22 RBC Hgb Hct RDW Lymph % (Auto) Seg Neutrophils % PT BUN Creatinine Est GFR (MDRD) Non-Af Glucose Creatine Kinase NT-Pro-B Natriuret Pep 2610 H - Diagnostic Test Radiology reviewed: Reports reviewed Radiology results interpreted by me: 02/20/19 13:07 Chest X-Ray 02/20/19 10:07 IMPRESSION: CARDIAC ENLARGEMENT. VASCULAR CONGESTION. - EKG Interpretation by Me Rate: Normal Rhythm: A.Fib Voltage: Consistant with LV[facility] Critical Care Note - Critical Care Note Total time excluding time spent on procedures (mins): 33 Discharge - Discharge Clinical Impression: Hypoxemia, Respiratory distress CHF exacerbation Qualifiers: Heart failure type: systolic Qualified Code(s): I50.23 - Acute on chronic systolic (congestive) heart failure Condition: Fair Disposition: ADMITTED INPATIENT Admitting Provider: Marcella (Hospitalist) Unit Admitted: [facility]U Referrals: [facility] [[facility]] - Follow up as needed
[2019-02-20 10:50] LABS: ABSOLUTE LYMPHOCYTES (AUTO) 0.7 10^3/uL (0.5-4.7); ABSOLUTE MONOCYTES (AUTO) 0.5 10^3/uL (0.1-1.4); ABSOLUTE NEUT (AUTO) 5.3 10^3/uL (1.7-8.2); BASOPHILS % (AUTO) 0.6 % (0-2); EOSINOPHILS % (AUTO) 0.2 % (0-6); HEMATOCRIT 34.3 % (37.9-51.0); HEMOGLOBIN 11.2 g/dL (13.5-17.0); LYMPHOCYTES % (AUTO) 10.7 % (13-45); MEAN CORPUSCULAR HEMOGLOBIN 28.8 pg (27.0-33.4); MEAN CORPUSCULAR HGB CONC 32.7 g/dL (32.0-36.0); MEAN CORPUSCULAR VOLUME 88 fl (80-97); MONOCYTES % (AUTO) 7.5 % (3-13); PLATELET COUNT 151 10^3/uL (150-450); RED CELL DISTRIBUTION WIDTH 17.5 % (11.5-14.0); TOTAL CELLS COUNTED % (AUTO) 100 %; WHITE BLOOD COUNT 6.5 10^3/uL (4.0-10.5)
[2019-02-20 10:56] LABS: VENOUS BLOOD BASE EXCESS 3.1 mmol/L; VENOUS BLOOD HCO3 30.3 mmol/L (20-32); VENOUS BLOOD PCO2 57.8 mmHg (35-63); VENOUS BLOOD PH 7.34 (7.30-7.42)
--- NOTE | 2019-02-20 10:57 | RADIOLOGY REPORT (SQ) ---
EXAM DESCRIPTION: CHEST SINGLE VIEW COMPLETED DATE/TIME: 02/20/2019 10:45 am REASON FOR STUDY: SOB COMPARISON: 07/20/2016. NUMBER OF VIEWS: One view. TECHNIQUE: Single frontal radiographic view of the chest acquired. LIMITATIONS: None. FINDINGS: LUNGS AND PLEURA: Faint basilar densities. Small pleural effusions. MEDIASTINUM AND HILAR STRUCTURES: No masses or contour abnormality. HEART AND VASCULATURE: Cardiac enlargement. Vascular congestion. BONES: No acute findings. HARDWARE: Sternotomy wires. OTHER: No other significant finding. IMPRESSION: CARDIAC ENLARGEMENT. VASCULAR CONGESTION. TECHNICAL DOCUMENTATION: JOB ID: [id number] [employer]- All Rights Reserved Reading location - IP/workstation name: [email or web address]
[2019-02-20 11:00] LABS: INTERNATIONAL RATION (INR) 2.11
[2019-02-20 11:18] LABS: ANION GAP 9 (5-19); BLOOD UREA NITROGEN 32 mg/dL (7-20); CARBON DIOXIDE 30 mmol/L (22-30); CHLORIDE 103 mmol/L (98-107); CREATINE KINASE 50 U/L (55-170); GLUCOSE 207 mg/dL (75-110); POTASSIUM 4.6 mmol/L (3.6-5.0)
[2019-02-20 11:36] LABS: TROPONIN I 0.075 ng/mL
[2019-02-20] MEDS ORDERED: FUROSEMIDE INJ/PF 100 MG/10 ML SDV IV ONE (13:05)
--- NOTE | 2019-02-20 16:23 | PDOC H&P ---
History of Present Illness Admission Date/PCP: 02/20/19 14:01 [facility] Patient complains of: Acute exacerbation of CHF History of Present Illness: GRACE LEONE is a 73 year old male with a history of coronary artery disease and bypass surgery. He has had 2 stents as well. He has a history of congestive heart failure (systolic and diastolic) as well as diabetes mellitus, hypertension, morbid obesity, obstructive sleep apnea and marked peripheral edema. He states that for approximately 3 days he has noticed increasing shortness of breath. He also had occasional cough with sputum. He denies fever or chills. The shortness of breath and cough have worsened over the last day. He presented to his primary care provider and they found that his oxygen sat uration was less than 80% on room air. The patient was sent to the emergency department. On evaluation by exam and diagnostic imaging there is congestive heart failure. Troponin and EKG are unremarkable. He was given a dose of IV furosemide and referred to the hospital service for admission. Past Medical History Cardiac Medical History: Reports: Atrial Fibrillation, Congestive Heart Failure, Coronary Artery Disease, Hypertension Denies: Myocardial Infarction Pulmonary Medical History: Reports: Pneumonia, Sleep Apnea Denies: Asthma, Bronchitis, Chronic Obstructive Pulmonary Disease (COPD) Neurological Medical History: Denies: Hemorrhagic CVA, Ischemic CVA, Seizures Endocrine Medical History: Reports: Diabetes Mellitus Type 2 Renal/ Medical History: Reports: Chronic Kidney Disease Malignancy Medical History: Reports: Breast Cancer Musculoskeltal Medical History: Reports: Arthritis Skin Medical History: Reports: Other - Basal Cell Denies: Eczema, Psoriasis Psychiatric Medical History: Denies: Alcohol Dependency, Substance Abuse, Tobacco Dependency Hematology: Reports: Anemia Past Surgical History Past Surgical History: Reports: Coronary Artery Bypass Graft, Orthopedic Surgery, Other - Mastectomy for breast cancer, partial nephrectomy on the left Social History Information Source: Patient, Relative Lives with: Alone Smoking Status: Never Smoker Frequency of Alcohol Use: None Hx Recreational Drug Use: No Drugs: None Hx Prescription Drug Abuse: No - Advance Directive Resuscitation Status: Do Not Resuscitate Surrogate healthcare decision maker:: We did review the healthcare proxy form in the admissions packet. Son and patient aware. Family History Family History: CAD, Malignancy - Breast cancer and uterine cancer and bone cancer Parental Family History Reviewed: Yes Children Family History Reviewed: Yes Sibling(s) Family History Reviewed.: Yes Medication/Allergy Home Medications: Atorvastatin Calcium [Lipitor 10 mg Tablet] 10 mg PO QHS 07/20/16 Bumetanide [Bumex 2 mg Tablet] 2 mg PO BID 07/20/16 Carvedilol [Coreg 25 mg Tablet] 1 tab PO Q12 07/20/16 Cholecalciferol (Vitamin D3) [Vitamin D3 1000 Unit Tablet] 2,000 unit PO DAILY 07/20/16 Docusate Sodium [Colace 100 mg Capsule] 100 mg PO BID 07/20/16 Insulin Glargine,Hum.rec.anlog [Lantus (Pyxis) Insulin 100 Unit/1 ml 10 ml] 36 unit SUBCUT QHS 07/20/16 Isosorbide Mononitrate [Isosorbide Mononitrate ER] 1 tab PO DAILY 07/20/16 Lisinopril [Prinivil 10 mg Tablet] 10 mg PO DAILY 07/20/16 Magnesium Oxide 400 mg PO DAILY 07/20/16 Metformin HCl [Glucophage] 1,000 mg PO BID 07/20/16 Ranitidine HCl 150 mg PO BID 07/20/16 Albuterol Sulfate [Ventolin HFA MDI 18 GM] 1 - 2 puff IH Q4H PRN #1 mdi 07/22/16 Allopurinol [Zyloprim 100 mg Tablet] 100 mg PO DAILY tablet 07/22/16 Apixaban [Eliquis 5 mg Tablet] 5 mg PO BID tablet 07/22/16 Tamsulosin HCl [Flomax 0.4 mg Cap.sr] 0.4 mg PO PCSUPPER cap.sr.24h 07/22/16 Aspirin 81 mg PO DAILY 02/01/18 Fluticasone Propionate [Flonase Allergy Relief] 9.9 ml NS DAILY 02/01/18 Liraglutide [Victoza 2-Dewayne] 0.6 mg SQ DAILY 02/06/18 Allergies/Adverse Reactions: spironolactone Allergy (Verified 02/20/19 11:48) Review of Systems Constitutional: PRESENT: weight gain. ABSENT: anorexia, chills, fever(s), night sweats Eyes: ABSENT: visual disturbances Ears: ABSENT: hearing changes Nose, Mouth, and Throat: ABSENT: headache(s), mouth pain, sore throat Cardiovascular: PRESENT: chest pain, dyspnea on exertion, edema. ABSENT: palpitations Respiratory: PRESENT: cough, dyspnea. ABSENT: hemoptysis, sputum Gastrointestinal: ABSENT: abdominal pain, constipation, diarrhea, nausea, vomiting Genitourinary: ABSENT: difficulty urinating, dysuria, hematuria Integumentary: ABSENT: diaphoresis, pruritus, wounds Neurological: ABSENT: abnormal gait, abnormal speech, confusion, memory loss, tremor(s) Psychiatric: ABSENT: anxiety, depression, hallucinations Endocrine: ABSENT: cold intolerance, heat intolerance, polydipsia, polyphagia Hematologic/Lymphatic: ABSENT: easy bleeding, easy bruising Physical Exam Vital Signs: Temp Pulse Resp BP Pulse Ox 97.4 F 78 20 92/74 L 100 02/20/19 15:44 02/20/19 15:44 02/20/19 15:44 02/20/19 15:44 02/20/19 15:44 Intake & Output 02/19/19 02/20/19 02/21/19 06:59 06:59 06:59 Output Total 470 Balance -470 Weight 152.4 kg General appearance: PRESENT: cooperative, mild distress, morbidly obese, well- developed, other - Currently on BiPAP Head exam: PRESENT: atraumatic, normocephalic Eye exam: PRESENT: conjunctiva pink, EOMI. ABSENT: scleral icterus Ear exam: PRESENT: normal external ear exam. ABSENT: bleeding, drainage Mouth exam: PRESENT: moist, tongue midline Respiratory exam: PRESENT: rales, symmetrical, tachypnea. ABSENT: accessory muscle use, rhonchi, wheezes Cardiovascular exam: PRESENT: irregular rhythm, +S1, +S2 GI/Abdominal exam: PRESENT: normal bowel sounds, soft, other - Protuberant abdomen. ABSENT: tenderness Rectal exam: PRESENT: deferred Gentrourinary exam: ABSENT: indwelling catheter Extremities exam: PRESENT: other - 4+ edema Musculoskeletal exam: PRESENT: ambulatory. ABSENT: normal inspection - Consistent with his morbid obesity, tenderness Neurological exam: PRESENT: alert, awake, oriented to person, oriented to place, oriented to time, oriented to situation, CN II-XII grossly intact Psychiatric exam: PRESENT: appropriate affect. ABSENT: agitated, anxious Focused psych exam: ABSENT: delusional Skin exam: PRESENT: dry, normal color, warm. ABSENT: rash Results Laboratory Results: 02/20/19 10:22 02/20/19 10:22 02/20/19 02/20/19 02/20/19 10:22 10:22 10:22 WBC 6.5 RBC 3.90 L Hgb 11.2 L Hct 34.3 L MCV 88 MCH 28.8 MCHC 32.7 RDW 17.5 H Plt Count 151 Seg Neutrophils % 81.0 H VBG pH VBG pCO2 VBG HCO3 VBG Base Excess Sodium 142.1 Potassium 4.6 Chloride 103 Carbon Dioxide 30 Anion Gap 9 BUN 32 H Creatinine 1.32 H Est GFR ( Amer) > 60 Glucose 207 H Lactic Acid 1.6 Calcium 9.0 02/20/19 10:22 WBC RBC Hgb Hct MCV MCH MCHC RDW Plt Count Seg Neutrophils % VBG pH 7.34 VBG pCO2 57.8 VBG HCO3 30.3 VBG Base Excess 3.1 Sodium Potassium Chloride Carbon Dioxide Anion Gap BUN Creatinine Est GFR ( Amer) Glucose Lactic Acid Calcium 02/20/19 02/20/19 10:22 10:22 Creatine Kinase 50 L Troponin I 0.075 NT-Pro-B Natriuret Pep 2610 H Impressions: Chest X-Ray 02/20/19 10:07 IMPRESSION: CARDIAC ENLARGEMENT. VASCULAR CONGESTION. Assessment and Plan - Diagnosis (1) Acute hypoxemic respiratory failure Is this a current diagnosis for this admission?: Yes Plan: 5018-the patient required BiPAP initially. We will try and wean him from BiPAP. He does wear CPAP at night. Our goal would be to wean back to CPAP at night and oxygen therapy during the day. If possible wean to room air. Respiratory failure is secondary to heart failure. (2) Acute on chronic systolic and diastolic heart failure, NYHA class 4 Is this a current diagnosis for this admission?: Yes Plan: 02/20/2019-the patient had an echocardiogram in 2017. At that time he had a mildly depressed ejection fraction with grade 2/4 diastolic heart failure. He comes in today with chest x-ray suggesting heart failure as well as clinical presentation. I will increase his diuretic therapy. We will monitor his electrolytes. We are getting a repeat echocardiogram. Continue carvedilol and lisinopril. (3) Coronary artery disease Qualifiers: Coronary Disease-Associated Artery/Lesion type: [place] artery [place] vs. transplanted heart: [place] heart Associated angina: without angina Qualified Code(s): I25.10 - Atherosclerotic heart disease of [place] coronary artery without angina pectoris Is this a current diagnosis for this admission?: Yes Plan: 02/20/2019-continue current regimen which includes carvedilol, lisinopril and Bumex. He is on aspirin therapy as well as statin therapy. He is also on isosorbide mononitrate. Continue to monitor for any signs or symptoms of acute coronary syndrome. (4) Diabetes mellitus type 2 in obese Is this a current diagnosis for this admission?: Yes Plan: 02/20/2019-I will check a hemoglobin A1c. I will place him on a Lantus sliding scale as we do not carry Victoza. I will continue his metformin 1 g twice daily and he will be on a carbohydrate consistent diet (along with his cardiac restrictions). (5) Chronic renal failure, stage 3 (moderate) Is this a current diagnosis for this admission?: Yes Plan: 02/20/2019-continue to monitor renal function especially with increased diuretics. Monitor electrolytes as well. He does have a history of partial nephrectomy from a mass that was benign. (6) Hypertension Qualifiers: Hypertension type: essential hypertension Qualified Code(s): I10 - Essential (primary) hypertension Is this a current diagnosis for this admission?: Yes Plan: 02/20/2019-continue current medication regimen. (7) Obstructive sleep apnea Is this a current diagnosis for this admission?: Yes Plan: 02/20/2019-currently on BiPAP. Patient family will bring in his CPAP machine and we will change to CPAP at night when appropriate. (8) Morbid obesity Is this a current diagnosis for this admission?: Yes Plan: 02/20/2019-BMI is 48. This presents significant additional risk for his coronary artery disease, diabetes mellitus, hypertension and obstructive sleep apnea (9) Obesity hypoventilation syndrome Is this a current diagnosis for this admission?: Yes Plan: 02/20/2019-this certainly contributes to his respiratory failure. We will try to encourage weight loss. (10) Hypothyroidism Qualifiers: Hypothyroidism type: unspecified Qualified Code(s): E03.9 - Hypothyroidism, unspecified Is this a current diagnosis for this admission?: Yes Plan: 02/20/2019-continue levothyroxine - Time Time Spent with patient: 35 or more minutes Medications reviewed and adjusted accordingly: Yes Anticipated discharge: Home with Homehealth - Inpatient Certification Based on my medical assessment, after consideration of the patient's comorbidit ies, presenting symptoms, or acuity I expect that the services needed warrant INPATIENT care.: Yes I certify that my determination is in accordance with my understanding of Me erik's requirements for reasonable and necessary INPATIENT services [42 CFR 412.3e].: Yes Medical Necessity: Need For Continuous Telemetry Monitoring, Risk of Co mplication if Not Cared For in Hospital Post Hospital Care: D/C Agriculture Teacher Documentation
[2019-02-20] MEDS ORDERED: MAG HYDROX/AL HYDROX/SIMETH SUSP 30 ML UDCUP PO PRN (16:29)
[2019-02-20] MEDS ORDERED: NITROGLYCERIN 0.4 MG/TAB 25 TAB/BOTTLE SL PRN (16:29)
[2019-02-20] MEDS ORDERED: ACETAMINOPHEN 325 MG TABLET PO PRN (16:29)
--- NOTE | 2019-02-20 16:29 | ADVANCED CARE ---
Attendance: Discussion was held at the bedside with the patient and his son Resuscitation Status: Do Not Resuscitate Discussion: The patient understands the not resuscitate decision. We also reviewed the healthcare proxy/living will form that accompanies the admissions packet. I showed the patient and his son where he could designate specific decision-makers as well as the area to annotate his wishes in the event of a catastrophic illness. We discussed possible options including tracheostomy, PEG tube and permanent snf placement. Care Planning Goals: To establish a plan of care in the event of a catastrophic event that honors the patient's wishes Document(s) Completed: None Time Spent: 18 minutes
[2019-02-20] MEDS ORDERED: GLUCAGON,HUMAN RECOMB 1 MG INJ IM PRN (16:53)
[2019-02-20] MEDS ORDERED: DEXTROSE 40% GEL 15 GM TUBE PO PRN ×2 (16:53)
[2019-02-20] MEDS ORDERED: DEXTROSE 50%-WATER 25 GM/50 ML DISP.SYRIN IV PRN ×2 (16:53)
[2019-02-20] MEDS: DOCUSATE SODIUM 100 MG CAPSULE PO SCH (18:13)
[2019-02-20] MEDS: TAMSULOSIN HCL 0.4 MG CAP.SR.24H PO SCH (18:13)
[2019-02-20] MEDS: APIXABAN 5 MG TABLET PO SCH (18:14)
[2019-02-20] MEDS: BUMETANIDE INJ/PF 1 MG/4 ML SDV IV SCH (18:14)
--- NOTE | 2019-02-20 21:38 | EKG REPORT ---
SEVERITY:- BORDERLINE ECG - A FIB LOW VOLTAGE IN FRONTAL LEADS BORDERLINE T ABNORMALITIES, DIFFUSE LEADS : Confirmed by: Racheal Fields 20-Feb-2019 21:37:28
[2019-02-20] MEDS: POTASSIUM CHLORIDE 10 MEQ CAPSULE.ER PO SCH (21:57)
[2019-02-20] MEDS: ATORVASTATIN CALCIUM 40 MG TABLET PO SCH (21:57)
[2019-02-20] MEDS: LISINOPRIL 10 MG TABLET PO SCH (21:57)
[2019-02-20] MEDS: CARVEDILOL 12.5 MG TABLET PO SCH (21:58)
[2019-02-20] MEDS: FAMOTIDINE 20 MG TABLET PO SCH (21:58)
[2019-02-20] MEDS: INSULIN LISPRO 100 UNIT/ML 3 ML VIAL SUBCUT SCH (22:05)
[2019-02-21] MEDS: PANTOPRAZOLE SODIUM 20 MG TABLET.DR PO SCH (05:11)
[2019-02-21 08:24] LABS: ABSOLUTE EOSINOPHILS # (AUTO) 0.1 10^3/uL (0.0-0.6); ABSOLUTE LYMPHOCYTES (AUTO) 0.6 10^3/uL (0.5-4.7); ABSOLUTE MONOCYTES (AUTO) 0.7 10^3/uL (0.1-1.4); ABSOLUTE NEUT (AUTO) 9.3 10^3/uL (1.7-8.2); BASOPHILS % (AUTO) 0.5 % (0-2); EOSINOPHILS % (AUTO) 0.9 % (0-6); HEMATOCRIT 33.7 % (37.9-51.0); HEMOGLOBIN 11.1 g/dL (13.5-17.0); LYMPHOCYTES % (AUTO) 5.4 % (13-45); MEAN CORPUSCULAR HGB CONC 32.9 g/dL (32.0-36.0); MEAN CORPUSCULAR VOLUME 88 fl (80-97); MONOCYTES % (AUTO) 6.3 % (3-13); PLATELET COUNT 160 10^3/uL (150-450); RED BLOOD COUNT 3.83 10^6/uL (4.35-5.55); RED CELL DISTRIBUTION WIDTH 17.3 % (11.5-14.0); SEGMENTED NEUTROPHILS % (AUTO) 86.9 % (42-78); TOTAL CELLS COUNTED % (AUTO) 100 %; WHITE BLOOD COUNT 10.7 10^3/uL (4.0-10.5)
[2019-02-21 08:43] LABS: CHOLESTEROL 115.87 mg/dL (0-200); TRIGLYCERIDES 96 mg/dL (<150)
[2019-02-21 08:54] LABS: DIRECT LDL 54 mg/dL (<100)
[2019-02-21 08:55] LABS: TROPONIN I 0.053 ng/mL
--- NOTE | 2019-02-21 09:52 | PDOC PROGRESS REPORT ---
Subjective Progress Note for:: 02/21/19 Subjective:: 02/21/2019-no complaints this a.m. Reason For Visit: HEART FAILURE Physical Exam Vital Signs: Temp Pulse Resp BP Pulse Ox 98.6 F 86 24 H 127/52 H 85 L 02/21/19 08:08 02/21/19 08:08 02/21/19 08:08 02/21/19 08:08 02/21/19 08:08 Pulse Oximeter Continuous Start: 02/20/19 16:30 Freq: RTQ4 Status: Active Protocol: Document 02/21/19 04:50 NSM (Rec: 02/21/19 05:21 NSM [id number]) Pulse Oximetry Assessment Oxygen Saturation (92-100) 98 Oxygen Delivery Method Bi-pap Fraction of Inspired Oxygen (FIO2) 100 Equipment Usage Equipment in Use Continuous SpO2 Machine # [id number] Intake & Output 02/20/19 02/21/19 02/22/19 06:59 06:59 06:59 Intake Total 900 Output Total 1570 Balance -670 Weight 148.7 kg General appearance: PRESENT: no acute distress, well-developed, well-nourished Neck exam: PRESENT: carotid bruit Respiratory exam: PRESENT: decreased breath sounds, rales, symmetrical, unlabored. ABSENT: rhonchi, wheezes Cardiovascular exam: PRESENT: RRR. ABSENT: diastolic murmur, rubs, systolic murmur Pulses: PRESENT: +1 pedal pulses bilateral Vascular exam: PRESENT: other - Chronic lymphedema bilateral lower extremities GI/Abdominal exam: PRESENT: normal bowel sounds, soft. ABSENT: distended, guarding, mass, organolmegaly, rebound, tenderness Extremities exam: PRESENT: full ROM, +2 edema, other - Chronic lymph edema bi lateral extremities. ABSENT: calf tenderness, clubbing, pedal edema Neurological exam: PRESENT: alert, awake, oriented to person, oriented to place, oriented to time, oriented to situation, CN II-XII grossly intact. ABSENT: motor sensory deficit Psychiatric exam: PRESENT: appropriate affect, normal mood. ABSENT: homicidal ideation, suicidal ideation Skin exam: PRESENT: other - Lymphedema bilateral extremities Results Laboratory Results: 02/21/19 07:57 02/20/19 10:22 02/20/19 02/20/19 02/20/19 10:22 10:22 10:22 WBC 6.5 RBC 3.90 L Hgb 11.2 L Hct 34.3 L MCV 88 MCH 28.8 MCHC 32.7 RDW 17.5 H Plt Count 151 Seg Neutrophils % 81.0 H VBG pH VBG pCO2 VBG HCO3 VBG Base Excess Sodium 142.1 Potassium 4.6 Chloride 103 Carbon Dioxide 30 Anion Gap 9 BUN 32 H Creatinine 1.32 H Est GFR ( Amer) > 60 Glucose 207 H Lactic Acid 1.6 Calcium 9.0 Magnesium Triglycerides Cholesterol LDL Cholesterol Direct VLDL Cholesterol HDL Cholesterol 02/20/19 02/21/19 02/21/19 10:22 07:57 07:57 WBC 10.7 H RBC 3.83 L Hgb 11.1 L Hct 33.7 L MCV 88 MCH 29.0 MCHC 32.9 RDW 17.3 H Plt Count 160 Seg Neutrophils % 86.9 H VBG pH 7.34 VBG pCO2 57.8 VBG HCO3 30.3 VBG Base Excess 3.1 Sodium Potassium Chloride Carbon Dioxide Anion Gap BUN Creatinine Est GFR ( Amer) Glucose Lactic Acid Calcium Magnesium 1.9 Triglycerides 96 Cholesterol 115.87 LDL Cholesterol Direct 54 VLDL Cholesterol 19.0 HDL Cholesterol 31 L 02/20/19 02/20/19 02/20/19 10:22 10:22 17:46 Creatine Kinase 50 L Troponin I 0.075 0.083 NT-Pro-B Natriuret Pep 2610 H 02/20/19 02/21/19 22:35 07:57 Creatine Kinase Troponin I 0.071 0.053 NT-Pro-B Natriuret Pep 1500 H Impressions: Chest X-Ray 02/20/19 10:07 IMPRESSION: CARDIAC ENLARGEMENT. VASCULAR CONGESTION. Assessment and Plan - Plan Summary Summary: 02/21/2019- Acute hypoxic rotatory failure-improved. We will continue BiPAP at night. Patient on supportive O2 at this time seen outside of bed with no acute distress. Continue to follow Acute on chronic systolic diastolic heart failure-continue IV diuresis this time. Will await creatinine bump before we switch over to p.o. Bumex. Coronary artery disease-continue Coreg, lisinopril and Bumex. Aspirin and statin therapy. Diabetes mellitus type 2 in obese-await A1c. Continue Lantus. Metformin 1 g p.o. twice daily carbohydrate diet. Chronic-renal failure stage III stable Hypertension-stable continue to follow Obstructive sleep apnea-continue BiPAP. Patient was placed on CPAP once appropriate Morbid obesity-continue to educate about the benefits of weight loss Obesity hypoventilation syndrome-encourage weight loss Hypothyroidism-continue levothyroxine - Time Time Spent with patient: 15-24 minutes - Inpatient Certification Based on my medical assessment, after consideration of the patient's comorbidities, presenting symptoms, or acuity I expect that the services needed warrant INPATIENT care.: Yes I certify that my determination is in accordance with my understanding of Medicare's requirements for reasonable and necessary INPATIENT services [42 CFR 412.3e].: Yes Medical Necessity: Other - IV diuresis
[2019-02-21] MEDS: BUMETANIDE INJ/PF 1 MG/4 ML SDV IV SCH ×2 (09:53→17:47)
[2019-02-21] MEDS: ASPIRIN 81 MG TABLET, ENT COATED PO SCH (09:54)
[2019-02-21] MEDS: ALLOPURINOL 100 MG TABLET PO SCH (09:54)
[2019-02-21] MEDS: CARVEDILOL 12.5 MG TABLET PO SCH ×2 (09:54→21:27)
[2019-02-21] MEDS: POTASSIUM CHLORIDE 10 MEQ CAPSULE.ER PO SCH ×2 (09:54→21:28)
[2019-02-21] MEDS: LISINOPRIL 10 MG TABLET PO SCH ×2 (09:54→21:28)
[2019-02-21] MEDS: METFORMIN HCL 500 MG TABLET PO SCH ×2 (09:54→17:46)
[2019-02-21] MEDS: ISOSORBIDE MONONITRATE 60 MG TAB.ER.24H PO SCH (09:54)
[2019-02-21] MEDS: MAGNESIUM OXIDE 400 MG TABLET PO SCH (09:55)
[2019-02-21] MEDS: DOCUSATE SODIUM 100 MG CAPSULE PO SCH ×2 (09:55→17:46)
[2019-02-21] MEDS: INSULIN LISPRO 100 UNIT/ML 3 ML VIAL SUBCUT SCH ×4 (09:55→21:28)
[2019-02-21] MEDS: FAMOTIDINE 20 MG TABLET PO SCH ×2 (09:55→21:28)
[2019-02-21] MEDS: LORATADINE 10 MG TABLET PO SCH (09:55)
[2019-02-21] MEDS: APIXABAN 5 MG TABLET PO SCH ×2 (09:55→17:46)
[2019-02-21 11:44] LABS: ARTERIAL BLOOD BASE EXCESS 2.4 mmol/L; ARTERIAL BLOOD FIO2 100%; ARTERIAL BLOOD H2CO3 1.98 mmol/L (1.05-1.35); ARTERIAL BLOOD HCO3 30.5 mmol/L (20-24); ARTERIAL BLOOD O2 SATURATION 67.8 % (94-98); ARTERIAL BLOOD PCO2 65.7 mmHg (35-45); ARTERIAL BLOOD PH 7.28 (7.35-7.45); ARTERIAL BLOOD TOTAL CO2 32.5 mmol/L (23-27)
[2019-02-21 11:46] LABS: ARTERIAL BLOOD PO2 40.5 mmHg (80-100)
[2019-02-21] MEDS: TAMSULOSIN HCL 0.4 MG CAP.SR.24H PO SCH (17:46)
[2019-02-21] MEDS: ATORVASTATIN CALCIUM 40 MG TABLET PO SCH (21:28)
[2019-02-22] MEDS: PANTOPRAZOLE SODIUM 20 MG TABLET.DR PO SCH (05:16)
[2019-02-22 07:02] LABS: HEMATOCRIT 34.2 % (37.9-51.0); HEMOGLOBIN 11.2 g/dL (13.5-17.0); MEAN CORPUSCULAR HEMOGLOBIN 29.1 pg (27.0-33.4); MEAN CORPUSCULAR HGB CONC 32.9 g/dL (32.0-36.0); MEAN CORPUSCULAR VOLUME 88 fl (80-97); PLATELET COUNT 165 10^3/uL (150-450); RED BLOOD COUNT 3.87 10^6/uL (4.35-5.55); RED CELL DISTRIBUTION WIDTH 17.1 % (11.5-14.0); WHITE BLOOD COUNT 7.8 10^3/uL (4.0-10.5)
[2019-02-22 07:22] LABS: ANION GAP 10 (5-19); BLOOD UREA NITROGEN 50 mg/dL (7-20); CALCIUM 8.8 mg/dL (8.4-10.2); CARBON DIOXIDE 30 mmol/L (22-30); CHLORIDE 102 mmol/L (98-107); GLUCOSE 169 mg/dL (75-110); POTASSIUM 4.7 mmol/L (3.6-5.0)
[2019-02-22] MEDS: METFORMIN HCL 500 MG TABLET PO SCH (08:40)
[2019-02-22] MEDS: INSULIN LISPRO 100 UNIT/ML 3 ML VIAL SUBCUT SCH ×4 (08:41→22:31)
[2019-02-22] MEDS: POTASSIUM CHLORIDE 10 MEQ CAPSULE.ER PO SCH ×2 (09:07→22:32)
[2019-02-22] MEDS: DOCUSATE SODIUM 100 MG CAPSULE PO SCH ×2 (09:07→17:11)
[2019-02-22] MEDS: ISOSORBIDE MONONITRATE 60 MG TAB.ER.24H PO SCH (09:07)
[2019-02-22] MEDS: LORATADINE 10 MG TABLET PO SCH (09:08)
[2019-02-22] MEDS: APIXABAN 5 MG TABLET PO SCH ×2 (09:08→17:11)
[2019-02-22] MEDS: CARVEDILOL 12.5 MG TABLET PO SCH ×2 (09:08→22:32)
[2019-02-22] MEDS: ALLOPURINOL 100 MG TABLET PO SCH (09:08)
[2019-02-22] MEDS: MAGNESIUM OXIDE 400 MG TABLET PO SCH (09:08)
[2019-02-22] MEDS: ASPIRIN 81 MG TABLET, ENT COATED PO SCH (09:09)
[2019-02-22] MEDS: LISINOPRIL 10 MG TABLET PO SCH (09:09)
[2019-02-22] MEDS: FAMOTIDINE 20 MG TABLET PO SCH ×2 (09:09→22:32)
[2019-02-22] MEDS: BUMETANIDE INJ/PF 1 MG/4 ML SDV IV SCH ×3 (10:12→18:06)
--- NOTE | 2019-02-22 11:19 | PDOC PROGRESS REPORT ---
Subjective Progress Note for:: 02/22/19 Subjective:: 02/21/2019-no complaints this a.m. 02/22/2019-no complaints this a.m. Reason For Visit: HEART FAILURE Physical Exam Vital Signs: Temp Pulse Resp BP Pulse Ox 98.6 F 29 L 20 127/96 H 95 02/22/19 08:03 02/22/19 08:08 02/22/19 08:49 02/22/19 08:08 02/22/19 08:49 Pulse Oximeter Continuous Start: 02/20/19 16:30 Freq: RTQ4 Status: Active Protocol: Document 02/22/19 08:49 NSM (Rec: 02/22/19 08:56 NSM [id number]) Pulse Oximetry Assessment Oxygen Saturation (92-100) 95 Oxygen Flow Rate (L/min) 45 Fraction of Inspired Oxygen (FIO2) 66 Equipment Usage Equipment in Use Continuous SpO2 Machine # N4 Intake & Output 02/21/19 02/22/19 02/23/19 06:59 06:59 06:59 Intake Total 900 1044 Output Total 1570 1750 Balance -670 -706 Weight 148.7 kg 151.7 kg General appearance: PRESENT: no acute distress, well-developed, well-nourished Neck exam: ABSENT: carotid bruit, JVD, lymphadenopathy, thyromegaly Respiratory exam: PRESENT: crackles, decreased breath sounds, symmetrical, tachypnea, unlabored. ABSENT: rales, rhonchi, wheezes Cardiovascular exam: PRESENT: RRR. ABSENT: diastolic murmur, rubs, systolic murmur Pulses: PRESENT: +1 pedal pulses bilateral Vascular exam: PRESENT: normal capillary refill Rectal exam: PRESENT: deferred Extremities exam: PRESENT: +2 edema Neurological exam: PRESENT: alert, awake, oriented to person, oriented to place, oriented to time, oriented to situation, CN II-XII grossly intact. ABSENT: motor sensory deficit Psychiatric exam: PRESENT: appropriate affect, normal mood. ABSENT: homicidal ideation, suicidal ideation Skin exam: PRESENT: dry, intact, warm. ABSENT: cyanosis, rash Results Laboratory Results: 02/22/19 06:11 02/22/19 06:11 02/21/19 02/22/19 02/22/19 04:59 06:11 06:11 WBC 7.8 RBC 3.87 L Hgb 11.2 L Hct 34.2 L MCV 88 MCH 29.1 MCHC 32.9 RDW 17.1 H Plt Count 165 Carbonic Acid 1.98 H HCO3/H2CO3 Ratio 15:1 ABG pH 7.28 L ABG pCO2 65.7 H ABG pO2 40.5 L* ABG HCO3 30.5 H ABG O2 Saturation 67.8 L ABG Base Excess 2.4 FiO2 100% Sodium 141.5 Potassium 4.7 Chloride 102 Carbon Dioxide 30 Anion Gap 10 BUN 50 H Creatinine 1.74 H Est GFR ( Amer) 47 L Glucose 169 H Calcium 8.8 02/20/19 02/20/19 02/20/19 10:22 10:22 17:46 Creatine Kinase 50 L Troponin I 0.075 0.083 NT-Pro-B Natriuret Pep 2610 H 02/20/19 02/21/19 22:35 07:57 Creatine Kinase Troponin I 0.071 0.053 NT-Pro-B Natriuret Pep 1500 H Impressions: Chest X-Ray 02/20/19 10:07 IMPRESSION: CARDIAC ENLARGEMENT. VASCULAR CONGESTION. Assessment and Plan - Plan Summary Summary: 02/21/2019- Acute hypoxic rotatory failure-improved. We will continue BiPAP at night. Patient on supportive O2 at this time seen outside of bed with no acute distress. Continue to follow Acute on chronic systolic diastolic heart failure-continue IV diuresis this time. Will await creatinine bump before we switch over to p.o. Bumex. Coronary artery disease-continue Coreg, lisinopril and Bumex. Aspirin and statin therapy. Diabetes mellitus type 2 in obese-await A1c. Continue Lantus. Metformin 1 g p.o. twice daily carbohydrate diet. Chronic-renal failure stage III stable Hypertension-stable continue to follow Obstructive sleep apnea-continue BiPAP. Patient was placed on CPAP once appropriate Morbid obesity-continue to educate about the benefits of weight loss Obesity hypoventilation syndrome-encourage weight loss Hypothyroidism-continue levothyroxine 02/22/2019- Acute hypoxic respiratory failure-improved. BiPAP continues at night. Patient on high flow O2 at this time. No acute distress Acute on chronic systolic and diastolic congestive heart failure-patient with rales continuing to third way up bilaterally. Patient is receiving Bumex 2 mg IV twice daily I am going to increase this to 3 times daily. As well as give Zaroxolyn 2.5 mg p.o. daily x3 days. Reassess as needed Coronary artery disease-continue current therapy Type 2 diabetes mellitus and obese-continue Lantus continue sliding scale. Metformin has been DC'd secondary to worsening renal function and avoidance of nephrotoxic drugs. Chronic renal failure stage III-a little worse today secondary to diuresis. I have DC'd all nephrotoxic medications will follow Hypertension-stable obstructive sleep apnea-continue BiPAP at night Morbid obesity-continue educated about benefits of weight loss Hypothyroidism-continue levothyroxine - Time Time Spent with patient: 15-24 minutes - Inpatient Certification Based on my medical assessment, after consideration of the patient's comorbidities, presenting symptoms, or acuity I expect that the services needed warrant INPATIENT care.: Yes I certify that my determination is in accordance with my understanding of Medicare's requirements for reasonable and necessary INPATIENT services [42 CFR 412.3e].: Yes Medical Necessity: Other - IV diuresis, monitor respiratory status
[2019-02-22] MEDS: METOLAZONE 2.5 MG TABLET PO SCH (12:41)
[2019-02-22] MEDS: TAMSULOSIN HCL 0.4 MG CAP.SR.24H PO SCH (17:11)
[2019-02-22] MEDS: ATORVASTATIN CALCIUM 40 MG TABLET PO SCH (22:32)
[2019-02-23 05:01] LABS: ANION GAP 9 (5-19); BLOOD UREA NITROGEN 56 mg/dL (7-20); CALCIUM 9.1 mg/dL (8.4-10.2); CARBON DIOXIDE 33 mmol/L (22-30); CHLORIDE 100 mmol/L (98-107); GLUCOSE 167 mg/dL (75-110)
[2019-02-23 05:18] LABS: POTASSIUM 3.7 mmol/L (3.6-5.0)
[2019-02-23] MEDS: PANTOPRAZOLE SODIUM 20 MG TABLET.DR PO SCH (06:07)
[2019-02-23] MEDS: INSULIN LISPRO 100 UNIT/ML 3 ML VIAL SUBCUT SCH ×3 (08:11→16:37)
--- NOTE | 2019-02-23 09:46 | PDOC PROGRESS REPORT ---
Subjective Progress Note for:: 02/23/19 Subjective:: 02/21/2019-no complaints this a.m. 02/22/2019-no complaints this a.m. 02/23/2019-shortness of breath Reason For Visit: HEART FAILURE Physical Exam Vital Signs: Temp Pulse Resp BP Pulse Ox 98.7 F 86 20 136/72 H 100 02/23/19 07:16 02/23/19 07:16 02/23/19 09:29 02/23/19 07:16 02/23/19 09:29 Pulse Oximeter Continuous Start: 02/20/19 16:30 Freq: RTQ4 Status: Active Protocol: Document 02/23/19 09:29 NSM (Rec: 02/23/19 09:31 NSM [id number]) Pulse Oximetry Assessment Oxygen Saturation (92-100) 100 Oxygen Flow Rate (L/min) 45 Fraction of Inspired Oxygen (FIO2) 65 Equipment Usage Equipment in Use Continuous SpO2 Machine # N4 Intake & Output 02/22/19 02/23/19 02/24/19 06:59 06:59 06:59 Intake Total 1044 1090 Output Total 1750 1900 Balance -706 -810 Weight 151.7 kg 150.1 kg General appearance: PRESENT: no acute distress, well-developed, well-nourished Neck exam: ABSENT: carotid bruit, JVD, lymphadenopathy, thyromegaly Respiratory exam: PRESENT: decreased breath sounds, rales, symmetrical, tachypnea, unlabored Cardiovascular exam: PRESENT: RRR. ABSENT: diastolic murmur, rubs, systolic murmur Pulses: PRESENT: +1 pedal pulses bilateral GI/Abdominal exam: PRESENT: normal bowel sounds, soft. ABSENT: distended, guarding, mass, organolmegaly, rebound, tenderness Extremities exam: PRESENT: full ROM, pedal edema, +2 edema. ABSENT: calf tende rness, clubbing Neurological exam: PRESENT: alert, awake, oriented to person, oriented to place, oriented to time, oriented to situation, CN II-XII grossly intact. ABSENT: mo tor sensory deficit Psychiatric exam: PRESENT: appropriate affect, normal mood. ABSENT: homicidal ideation, suicidal ideation Skin exam: PRESENT: dry, intact, warm. ABSENT: cyanosis, rash Results Laboratory Results: 02/22/19 06:11 02/23/19 04:21 02/23/19 04:21 Sodium 141.6 Potassium 3.7 D Chloride 100 Carbon Dioxide 33 H Anion Gap 9 BUN 56 H Creatinine 1.75 H Est GFR ( Amer) 46 L Glucose 167 H Calcium 9.1 02/20/19 02/20/19 02/20/19 10:22 10:22 17:46 Creatine Kinase 50 L Troponin I 0.075 0.083 NT-Pro-B Natriuret Pep 2610 H 02/20/19 02/21/19 22:35 07:57 Creatine Kinase Troponin I 0.071 0.053 NT-Pro-B Natriuret Pep 1500 H Impressions: Chest X-Ray 02/20/19 10:07 IMPRESSION: CARDIAC ENLARGEMENT. VASCULAR CONGESTION. Assessment and Plan - Plan Summary Summary: 02/21/2019- Acute hypoxic rotatory failure-improved. We will continue BiPAP at night. Patient on supportive O2 at this time seen outside of bed with no acute distress. Continue to follow Acute on chronic systolic diastolic heart failure-continue IV diuresis this time. Will await creatinine bump before we switch over to p.o. Bumex. Coronary artery disease-continue Coreg, lisinopril and Bumex. Aspirin and statin therapy. Diabetes mellitus type 2 in obese-await A1c. Continue Lantus. Metformin 1 g p.o. twice daily carbohydrate diet. Chronic-renal failure stage III stable Hypertension-stable continue to follow Obstructive sleep apnea-continue BiPAP. Patient was placed on CPAP once appropriate Morbid obesity-continue to educate about the benefits of weight loss Obesity hypoventilation syndrome-encourage weight loss Hypothyroidism-continue levothyroxine 02/22/2019- Acute hypoxic respiratory failure-improved. BiPAP continues at night. Patient on high flow O2 at this time. No acute distress Acute on chronic systolic and diastolic congestive heart failure-patient with rales continuing to third way up bilaterally. Patient is receiving Bumex 2 mg IV twice daily I am going to increase this to 3 times daily. As well as give Zaroxolyn 2.5 mg p.o. daily x3 days. Reassess as needed Coronary artery disease-continue current therapy Type 2 diabetes mellitus and obese-continue Lantus continue sliding scale. Metformin has been DC'd secondary to worsening renal function and avoidance of nephrotoxic drugs. Chronic renal failure stage III-a little worse today secondary to diuresis. I have DC'd all nephrotoxic medications will follow Hypertension-stable obstructive sleep apnea-continue BiPAP at night Morbid obesity-continue educated about benefits of weight loss Hypothyroidism-continue levothyroxine 02/23/2019- Acute hypoxic respiratory failure-patient has been on BiPAP at night I am going to place patient on BiPAP throughout the day as well as long as he can stay on it. Continue high flow oxygen during meals. Patient continues on diuresis with Bumex 2 mg IV 3 times daily and Zaroxolyn. We will continue to follow until patient has a significant bump in his creatinine. Acute on chronic systolic and diastolic congestive heart failure-rales remain. Continue aggressive diuresis Chronic renal failure stage III-stable at this time continue to follow daily BMPs Hypertension-stable Sleep apnea-continue BiPAP Morbid obesity-continue education about weight loss Hypothyroidism continue levothyroxine - Time Time Spent with patient: 15-24 minutes - Inpatient Certification Based on my medical assessment, after consideration of the patient's comorbidities, presenting symptoms, or acuity I expect that the services needed warrant INPATIENT care.: Yes I certify that my determination is in accordance with my understanding of Medicare's requirements for reasonable and necessary INPATIENT services [42 CFR 412.3e].: Yes Medical Necessity: Other - IV diuresis, BiPAP
[2019-02-23] MEDS: DOCUSATE SODIUM 100 MG CAPSULE PO SCH ×2 (10:12→18:15)
[2019-02-23] MEDS: ISOSORBIDE MONONITRATE 60 MG TAB.ER.24H PO SCH (10:12)
[2019-02-23] MEDS: FAMOTIDINE 20 MG TABLET PO SCH (10:12)
[2019-02-23] MEDS: BUMETANIDE INJ/PF 1 MG/4 ML SDV IV SCH ×3 (10:12→19:21)
[2019-02-23] MEDS: LORATADINE 10 MG TABLET PO SCH (10:12)
[2019-02-23] MEDS: APIXABAN 5 MG TABLET PO SCH ×2 (10:12→18:15)
[2019-02-23] MEDS: CARVEDILOL 12.5 MG TABLET PO SCH (10:12)
[2019-02-23] MEDS: METOLAZONE 2.5 MG TABLET PO SCH (10:12)
[2019-02-23] MEDS: MAGNESIUM OXIDE 400 MG TABLET PO SCH (10:12)
[2019-02-23] MEDS: POTASSIUM CHLORIDE 10 MEQ CAPSULE.ER PO SCH (10:12)
[2019-02-23] MEDS: ASPIRIN 81 MG TABLET, ENT COATED PO SCH (10:12)
[2019-02-23] MEDS: TAMSULOSIN HCL 0.4 MG CAP.SR.24H PO SCH (18:15)
[2019-02-24] MEDS: INSULIN LISPRO 100 UNIT/ML 3 ML VIAL SUBCUT SCH ×5 (01:59→22:48)
[2019-02-24] MEDS: CARVEDILOL 12.5 MG TABLET PO SCH ×3 (01:59→22:48)
[2019-02-24] MEDS: FAMOTIDINE 20 MG TABLET PO SCH ×3 (02:00→22:47)
[2019-02-24] MEDS: ATORVASTATIN CALCIUM 40 MG TABLET PO SCH ×2 (02:00→22:48)
[2019-02-24] MEDS: POTASSIUM CHLORIDE 10 MEQ CAPSULE.ER PO SCH ×5 (02:00→22:47)
[2019-02-24] MEDS: PANTOPRAZOLE SODIUM 20 MG TABLET.DR PO SCH (06:37)
[2019-02-24 06:47] LABS: HEMOGLOBIN 10.9 g/dL (13.5-17.0); MEAN CORPUSCULAR HEMOGLOBIN 28.4 pg (27.0-33.4); MEAN CORPUSCULAR HGB CONC 32.9 g/dL (32.0-36.0); MEAN CORPUSCULAR VOLUME 86 fl (80-97); PLATELET COUNT 175 10^3/uL (150-450); RED BLOOD COUNT 3.83 10^6/uL (4.35-5.55); RED CELL DISTRIBUTION WIDTH 16.8 % (11.5-14.0); WHITE BLOOD COUNT 6.7 10^3/uL (4.0-10.5)
[2019-02-24] MEDS: APIXABAN 5 MG TABLET PO SCH ×2 (09:09→17:47)
[2019-02-24] MEDS: ISOSORBIDE MONONITRATE 60 MG TAB.ER.24H PO SCH (09:09)
[2019-02-24] MEDS: LORATADINE 10 MG TABLET PO SCH (09:09)
[2019-02-24] MEDS: MAGNESIUM OXIDE 400 MG TABLET PO SCH (09:09)
[2019-02-24] MEDS: METOLAZONE 2.5 MG TABLET PO SCH (09:09)
[2019-02-24] MEDS: ASPIRIN 81 MG TABLET, ENT COATED PO SCH (09:09)
[2019-02-24] MEDS: DOCUSATE SODIUM 100 MG CAPSULE PO SCH ×2 (09:09→17:47)
[2019-02-24 09:10] LABS: BLOOD UREA NITROGEN 53 mg/dL (7-20); CALCIUM 8.8 mg/dL (8.4-10.2); CHLORIDE 96 mmol/L (98-107); GLUCOSE 232 mg/dL (75-110); POTASSIUM 3.2 mmol/L (3.6-5.0)
[2019-02-24] MEDS: BUMETANIDE INJ/PF 1 MG/4 ML SDV IV SCH ×3 (09:10→17:48)
[2019-02-24 09:17] LABS: ANION GAP 8 (5-19)
[2019-02-24 09:20] LABS: CARBON DIOXIDE 38 mmol/L (22-30)
--- NOTE | 2019-02-24 10:21 | PDOC PROGRESS REPORT ---
Subjective Progress Note for:: 02/24/19 Subjective:: 02/21/2019-no complaints this a.m. 02/22/2019-no complaints this a.m. 02/23/2019-shortness of breath 02/24/2019-no complaints this a.m. Reason For Visit: HEART FAILURE Physical Exam Vital Signs: Temp Pulse Resp BP Pulse Ox 97.5 F 89 21 H 152/68 H 98 02/24/19 03:51 02/24/19 07:00 02/24/19 08:30 02/24/19 03:51 02/24/19 08:30 Pulse Oximeter Continuous Start: 02/20/19 16:30 Freq: RTQ4 Status: Active Protocol: Document 02/24/19 08:30 HCR (Rec: 02/24/19 09:57 HCR [id number]) Pulse Oximetry Assessment Oxygen Saturation (92-100) 98 Oxygen Delivery Method CPAP Fraction of Inspired Oxygen (FIO2) 55 Equipment Usage Initial Set Up Continuous Pulse Oximeter 24 Hour Charge Charge Now Continuous SpO2 Machine # 4 Intake & Output 02/23/19 02/24/19 02/25/19 06:59 06:59 06:59 Intake Total 1090 1220 Output Total 1900 4900 Balance -810 -3680 Weight 150.1 kg 147.6 kg General appearance: PRESENT: no acute distress, well-developed, well-nourished Neck exam: ABSENT: carotid bruit, JVD, lymphadenopathy, thyromegaly Respiratory exam: PRESENT: clear to auscultation shala, decreased breath sounds, symmetrical, tachypnea, unlabored Cardiovascular exam: PRESENT: RRR. ABSENT: diastolic murmur, rubs, systolic murmur Pulses: PRESENT: +1 pedal pulses bilateral Vascular exam: PRESENT: normal capillary refill Extremities exam: PRESENT: full ROM, +2 edema. ABSENT: calf tenderness, clubbing Neurological exam: PRESENT: alert Psychiatric exam: PRESENT: agitated Skin exam: PRESENT: dry, intact, warm, other - Bilateral lower extremely lymphedema. ABSENT: cyanosis, rash Results Laboratory Results: 02/24/19 06:25 02/24/19 08:40 02/24/19 02/24/19 02/24/19 06:25 06:25 08:40 WBC 6.7 RBC 3.83 L Hgb 10.9 L Hct 33.0 L MCV 86 MCH 28.4 MCHC 32.9 RDW 16.8 H Plt Count 175 Sodium Cancelled 141.5 Potassium Cancelled 3.2 L Chloride Cancelled 96 L Carbon Dioxide Cancelled 38 H Anion Gap Cancelled 8 BUN Cancelled 53 H Creatinine Cancelled 1.45 H Est GFR ( Amer) Cancelled 58 L Est GFR (Non-Af Amer) Cancelled Glucose Cancelled 232 H Calcium Cancelled 8.8 02/20/19 02/20/19 02/20/19 10:22 10:22 17:46 Creatine Kinase 50 L Troponin I 0.075 0.083 NT-Pro-B Natriuret Pep 2610 H 02/20/19 02/21/19 22:35 07:57 Creatine Kinase Troponin I 0.071 0.053 NT-Pro-B Natriuret Pep 1500 H Impressions: Chest X-Ray 02/20/19 10:07 IMPRESSION: CARDIAC ENLARGEMENT. VASCULAR CONGESTION. Assessment and Plan - Plan Summary Summary: 02/21/2019- Acute hypoxic rotatory failure-improved. We will continue BiPAP at night. Patient on supportive O2 at this time seen outside of bed with no acute distress. Continue to follow Acute on chronic systolic diastolic heart failure-continue IV diuresis this time. Will await creatinine bump before we switch over to p.o. Bumex. Coronary artery disease-continue Coreg, lisinopril and Bumex. Aspirin and statin therapy. Diabetes mellitus type 2 in obese-await A1c. Continue Lantus. Metformin 1 g p.o. twice daily carbohydrate diet. Chronic-renal failure stage III stable Hypertension-stable continue to follow Obstructive sleep apnea-continue BiPAP. Patient was placed on CPAP once appropriate Morbid obesity-continue to educate about the benefits of weight loss Obesity hypoventilation syndrome-encourage weight loss Hypothyroidism-continue levothyroxine 02/22/2019- Acute hypoxic respiratory failure-improved. BiPAP continues at night. Patient on high flow O2 at this time. No acute distress Acute on chronic systolic and diastolic congestive heart failure-patient with rales continuing to third way up bilaterally. Patient is receiving Bumex 2 mg IV twice daily I am going to increase this to 3 times daily. As well as give Zaroxolyn 2.5 mg p.o. daily x3 days. Reassess as needed Coronary artery disease-continue current therapy Type 2 diabetes mellitus and obese-continue Lantus continue sliding scale. Metformin has been DC'd secondary to worsening renal function and avoidance of nephrotoxic drugs. Chronic renal failure stage III-a little worse today secondary to diuresis. I have DC'd all nephrotoxic medications will follow Hypertension-stable obstructive sleep apnea-continue BiPAP at night Morbid obesity-continue educated about benefits of weight loss Hypothyroidism-continue levothyroxine 02/23/2019- Acute hypoxic respiratory failure-patient has been on BiPAP at night I am going to place patient on BiPAP throughout the day as well as long as he can stay on it. Continue high flow oxygen during meals. Patient continues on diuresis with Bumex 2 mg IV 3 times daily and Zaroxolyn. We will continue to follow until patient has a significant bump in his creatinine. Acute on chronic systolic and diastolic congestive heart failure-rales remain. Continue aggressive diuresis Chronic renal failure stage III-stable at this time continue to follow daily BMPs Hypertension-stable Sleep apnea-continue BiPAP Morbid obesity-continue education about weight loss Hypothyroidism continue levothyroxine 02/24/2019- Acute hypoxic wrist quintin failure-improved. Patient remained on BiPAP overnight I have told patient to continue BiPAP for the next day as much as he can tolerate. Continue high flow oxygen during meals. Continue diuresis with Bumex 2 mg 3 times daily until we see a significant bump in his creatinine. Continue to follow. Acute on chronic systolic and diastolic left heart failure. Improved. Rales have subsided. Continue diuresis. Chronic renal failure stage III-improved today creatinine slightly increased from yesterday. Continue to follow with daily renal panel Hypertension-stable Sleep apnea continue BiPAP Morbid obesity weight loss education Hypothyroidism continue levothyroxine - Time Time Spent with patient: 15-24 minutes - Inpatient Certification Medical Necessity: Significant Comorbidiites Make Outpatient Treatment Too Risky, Need Close Monitoring Due to Risk of Patient Decompensation
[2019-02-24] MEDS: TAMSULOSIN HCL 0.4 MG CAP.SR.24H PO SCH (17:47)
[2019-02-25] MEDS: PANTOPRAZOLE SODIUM 20 MG TABLET.DR PO SCH (05:49)
[2019-02-25 06:14] LABS: ANION GAP 8 (5-19); BLOOD UREA NITROGEN 49 mg/dL (7-20); CALCIUM 8.8 mg/dL (8.4-10.2); CHLORIDE 95 mmol/L (98-107); GLUCOSE 181 mg/dL (75-110); POTASSIUM 3.1 mmol/L (3.6-5.0)
[2019-02-25 06:20] LABS: CARBON DIOXIDE 40 mmol/L (22-30)
[2019-02-25] MEDS: INSULIN LISPRO 100 UNIT/ML 3 ML VIAL SUBCUT SCH ×4 (08:34→21:52)
--- NOTE | 2019-02-25 08:44 | PDOC PROGRESS REPORT ---
Subjective Progress Note for:: 02/25/19 Subjective:: 02/21/2019-no complaints this a.m. 02/22/2019-no complaints this a.m. 02/23/2019-shortness of breath 02/24/2019-no complaints this a.m. 02/25/2019-no complaints of a.m.-no events overnight. Patient on BiPAP Reason For Visit: HEART FAILURE Physical Exam Vital Signs: Temp Pulse Resp BP Pulse Ox 97.6 F 87 19 121/58 L 99 02/24/19 23:43 02/25/19 02:58 02/25/19 04:10 02/25/19 02:58 02/25/19 08:38 Pulse Oximeter Continuous Start: 02/20/19 16:30 Freq: RTQ4 Status: Active Protocol: Document 02/25/19 08:38 HCR (Rec: 02/25/19 08:40 HCR [id number]) Pulse Oximetry Assessment Oxygen Saturation (92-100) 99 Oxygen Flow Rate (L/min) 4 Oxygen Delivery Method Nasal Cannula Equipment Usage Equipment in Use Continuous SpO2 Machine # 4 Intake & Output 02/24/19 02/25/19 02/26/19 06:59 06:59 06:59 Intake Total 1220 2809 Output Total 4900 3965 Balance -3680 -1156 Weight 147.6 kg 143.2 kg General appearance: PRESENT: no acute distress, well-developed, well-nourished Neck exam: ABSENT: carotid bruit, JVD, lymphadenopathy, thyromegaly Respiratory exam: PRESENT: clear to auscultation shala, decreased breath sounds, symmetrical, unlabored Cardiovascular exam: PRESENT: RRR. ABSENT: diastolic murmur, rubs, systolic mur mur Pulses: PRESENT: +1 pedal pulses bilateral Vascular exam: PRESENT: normal capillary refill GI/Abdominal exam: PRESENT: normal bowel sounds, soft. ABSENT: distended, guarding, mass, organolmegaly, rebound, tenderness Extremities exam: PRESENT: full ROM, pedal edema, +2 edema. ABSENT: calf tende rness, clubbing Neurological exam: PRESENT: alert, awake, oriented to person, oriented to place, oriented to time, oriented to situation, CN II-XII grossly intact. ABSENT: mo tor sensory deficit Psychiatric exam: PRESENT: appropriate affect, normal mood. ABSENT: homicidal ideation, suicidal ideation Skin exam: PRESENT: dry, intact, warm. ABSENT: cyanosis, rash Results Laboratory Results: 02/24/19 06:25 02/25/19 05:30 02/24/19 02/25/19 08:40 05:30 Sodium 141.5 143.1 Potassium 3.2 L 3.1 L Chloride 96 L 95 L Carbon Dioxide 38 H 40 H* Anion Gap 8 8 BUN 53 H 49 H Creatinine 1.45 H 1.40 H Est GFR ( Amer) 58 L > 60 Glucose 232 H 181 H Calcium 8.8 8.8 02/20/19 02/20/19 02/20/19 10:22 10:22 17:46 Creatine Kinase 50 L Troponin I 0.075 0.083 NT-Pro-B Natriuret Pep 2610 H 02/20/19 02/21/19 22:35 07:57 Creatine Kinase Troponin I 0.071 0.053 NT-Pro-B Natriuret Pep 1500 H Impressions: Chest X-Ray 02/20/19 10:07 IMPRESSION: CARDIAC ENLARGEMENT. VASCULAR CONGESTION. Assessment and Plan - Plan Summary Summary: 02/21/2019- Acute hypoxic rotatory failure-improved. We will continue BiPAP at night. Patient on supportive O2 at this time seen outside of bed with no acute distress. Continue to follow Acute on chronic systolic diastolic heart failure-continue IV diuresis this time. Will await creatinine bump before we switch over to p.o. Bumex. Coronary artery disease-continue Coreg, lisinopril and Bumex. Aspirin and statin therapy. Diabetes mellitus type 2 in obese-await A1c. Continue Lantus. Metformin 1 g p.o. twice daily carbohydrate diet. Chronic-renal failure stage III stable Hypertension-stable continue to follow Obstructive sleep apnea-continue BiPAP. Patient was placed on CPAP once appropriate Morbid obesity-continue to educate about the benefits of weight loss Obesity hypoventilation syndrome-encourage weight loss Hypothyroidism-continue levothyroxine 02/22/2019- Acute hypoxic respiratory failure-improved. BiPAP continues at night. Patient on high flow O2 at this time. No acute distress Acute on chronic systolic and diastolic congestive heart failure-patient with rales continuing to third way up bilaterally. Patient is receiving Bumex 2 mg IV twice daily I am going to increase this to 3 times daily. As well as give Zaroxolyn 2.5 mg p.o. daily x3 days. Reassess as needed Coronary artery disease-continue current therapy Type 2 diabetes mellitus and obese-continue Lantus continue sliding scale. Metformin has been DC'd secondary to worsening renal function and avoidance of nephrotoxic drugs. Chronic renal failure stage III-a little worse today secondary to diuresis. I have DC'd all nephrotoxic medications will follow Hypertension-stable obstructive sleep apnea-continue BiPAP at night Morbid obesity-continue educated about benefits of weight loss Hypothyroidism-continue levothyroxine 02/23/2019- Acute hypoxic respiratory failure-patient has been on BiPAP at night I am going to place patient on BiPAP throughout the day as well as long as he can stay on it. Continue high flow oxygen during meals. Patient continues on diuresis with Bumex 2 mg IV 3 times daily and Zaroxolyn. We will continue to follow until patient has a significant bump in his creatinine. Acute on chronic systolic and diastolic congestive heart failure-rales remain. Continue aggressive diuresis Chronic renal failure stage III-stable at this time continue to follow daily BMPs Hypertension-stable Sleep apnea-continue BiPAP Morbid obesity-continue education about weight loss Hypothyroidism continue levothyroxine 02/24/2019- Acute hypoxic wrist quintin failure-improved. Patient remained on BiPAP overnight I have told patient to continue BiPAP for the next day as much as he can tolerate. Continue high flow oxygen during meals. Continue diuresis with Bumex 2 mg 3 times daily until we see a significant bump in his creatinine. Continue to follow. Acute on chronic systolic and diastolic left heart failure. Improved. Rales have subsided. Continue diuresis. Chronic renal failure stage III-improved today creatinine slightly increased from yesterday. Continue to follow with daily renal panel Hypertension-stable Sleep apnea continue BiPAP Morbid obesity weight loss education Hypothyroidism continue levothyroxine 02/25/2019- Acute hypoxic respiratory failure-improved. Patient remains on BiPAP overnight. Patient's lungs are much clear at this time he is showing an improvement in his creatinine with diuresis. We will continue Bumex 2 mg IV 3 times daily until we do see a bump in his creatinine. Acute on chronic systolic and diastolic left heart failure-improved. Lungs are clear. Continue diuresis as his creatinine is improving we will continue until we see a bump in his creatinine. Chronic renal failure stage III-improving today we will continue to follow daily renal panels. Hypertension-stable Sleep apnea-continue BiPAP Morbid obesity-continue weight loss educated Hypothyroidism continue levothyroxine - Time Time Spent with patient: 15-24 minutes - Inpatient Certification Based on my medical assessment, after consideration of the patient's comorbidities, presenting symptoms, or acuity I expect that the services needed warrant INPATIENT care.: Yes I certify that my determination is in accordance with my understanding of Medicare's requirements for reasonable and necessary INPATIENT services [42 CFR 412.3e].: Yes Medical Necessity: Significant Comorbidiites Make Outpatient Treatment Too Risky, Need Close Monitoring Due to Risk of Patient Decompensation - IV diuresis
[2019-02-25] MEDS: BUMETANIDE INJ/PF 1 MG/4 ML SDV IV SCH ×3 (09:36→17:45)
[2019-02-25] MEDS: ISOSORBIDE MONONITRATE 60 MG TAB.ER.24H PO SCH (09:37)
[2019-02-25] MEDS: POTASSIUM CHLORIDE 10 MEQ CAPSULE.ER PO SCH ×5 (09:37→21:51)
[2019-02-25] MEDS: APIXABAN 5 MG TABLET PO SCH ×2 (09:38→17:46)
[2019-02-25] MEDS: CARVEDILOL 12.5 MG TABLET PO SCH ×2 (09:38→21:51)
[2019-02-25] MEDS: LORATADINE 10 MG TABLET PO SCH (09:38)
[2019-02-25] MEDS: ASPIRIN 81 MG TABLET, ENT COATED PO SCH (09:39)
[2019-02-25] MEDS: MAGNESIUM OXIDE 400 MG TABLET PO SCH (09:39)
[2019-02-25] MEDS: FAMOTIDINE 20 MG TABLET PO SCH ×2 (09:39→21:52)
[2019-02-25] MEDS: DOCUSATE SODIUM 100 MG CAPSULE PO SCH ×2 (09:39→17:46)
[2019-02-25] MEDS: TAMSULOSIN HCL 0.4 MG CAP.SR.24H PO SCH (17:46)
[2019-02-25] MEDS: ATORVASTATIN CALCIUM 40 MG TABLET PO SCH (21:52)
[2019-02-26] MEDS: PANTOPRAZOLE SODIUM 20 MG TABLET.DR PO SCH (05:07)
[2019-02-26 06:10] LABS: HEMATOCRIT 35.3 % (37.9-51.0); HEMOGLOBIN 11.6 g/dL (13.5-17.0); MEAN CORPUSCULAR HEMOGLOBIN 28.5 pg (27.0-33.4); MEAN CORPUSCULAR HGB CONC 32.9 g/dL (32.0-36.0); MEAN CORPUSCULAR VOLUME 87 fl (80-97); PLATELET COUNT 191 10^3/uL (150-450); RED BLOOD COUNT 4.06 10^6/uL (4.35-5.55); RED CELL DISTRIBUTION WIDTH 17.2 % (11.5-14.0); WHITE BLOOD COUNT 7.6 10^3/uL (4.0-10.5)
[2019-02-26 06:31] LABS: BLOOD UREA NITROGEN 45 mg/dL (7-20); CALCIUM 9.3 mg/dL (8.4-10.2); CHLORIDE 89 mmol/L (98-107); GLUCOSE 188 mg/dL (75-110); POTASSIUM 3.4 mmol/L (3.6-5.0)
[2019-02-26 06:54] LABS: ANION GAP 10 (5-19); CARBON DIOXIDE 43 mmol/L (22-30)
[2019-02-26] MEDS: INSULIN LISPRO 100 UNIT/ML 3 ML VIAL SUBCUT SCH ×2 (08:08→11:39)
--- NOTE | 2019-02-26 08:22 | PDOC DISCHARGE SUMMARY ---
Impression - Admit/DC Date/PCP Admission Date/Primary Care Provider: 02/20/19 14:01 [facility] Discharge Date: 02/26/19 - Discharge Diagnosis (1) Acute hypoxemic respiratory failure Is this a current diagnosis for this admission?: Yes (2) Acute on chronic systolic and diastolic heart failure, NYHA class 4 Is this a current diagnosis for this admission?: Yes (3) Coronary artery disease Is this a current diagnosis for this admission?: Yes (4) Diabetes mellitus type 2 in obese Is this a current diagnosis for this admission?: Yes (5) Chronic renal failure, stage 3 (moderate) Is this a current diagnosis for this admission?: Yes (6) Hypertension Is this a current diagnosis for this admission?: Yes (7) Obstructive sleep apnea Is this a current diagnosis for this admission?: Yes (8) Morbid obesity Is this a current diagnosis for this admission?: Yes (9) Obesity hypoventilation syndrome Is this a current diagnosis for this admission?: Yes (10) Hypothyroidism Is this a current diagnosis for this admission?: Yes - Assessment Summary: 02/21/2019- Acute hypoxic rotatory failure-improved. We will continue BiPAP at night. Patient on supportive O2 at this time seen outside of bed with no acute distress. Continue to follow Acute on chronic systolic diastolic heart failure-continue IV diuresis this time. Will await creatinine bump before we switch over to p.o. Bumex. Coronary artery disease-continue Coreg, lisinopril and Bumex. Aspirin and statin therapy. Diabetes mellitus type 2 in obese-await A1c. Continue Lantus. Metformin 1 g p.o. twice daily carbohydrate diet. Chronic-renal failure stage III stable Hypertension-stable continue to follow Obstructive sleep apnea-continue BiPAP. Patient was placed on CPAP once appropriate Morbid obesity-continue to educate about the benefits of weight loss Obesity hypoventilation syndrome-encourage weight loss Hypothyroidism-continue levothyroxine 02/22/2019- Acute hypoxic respiratory failure-improved. BiPAP continues at night. Patient on high flow O2 at this time. No acute distress Acute on chronic systolic and diastolic congestive heart failure-patient with rales continuing to third way up bilaterally. Patient is receiving Bumex 2 mg IV twice daily I am going to increase this to 3 times daily. As well as give Zaroxolyn 2.5 mg p.o. daily x3 days. Reassess as needed Coronary artery disease-continue current therapy Type 2 diabetes mellitus and obese-continue Lantus continue sliding scale. Metformin has been DC'd secondary to worsening renal function and avoidance of nephrotoxic drugs. Chronic renal failure stage III-a little worse today secondary to diuresis. I have DC'd all nephrotoxic medications will follow Hypertension-stable obstructive sleep apnea-continue BiPAP at night Morbid obesity-continue educated about benefits of weight loss Hypothyroidism-continue levothyroxine 02/23/2019- Acute hypoxic respiratory failure-patient has been on BiPAP at night I am going to place patient on BiPAP throughout the day as well as long as he can stay on it. Continue high flow oxygen during meals. Patient continues on diuresis with Bumex 2 mg IV 3 times daily and Zaroxolyn. We will continue to follow until patient has a significant bump in his creatinine. Acute on chronic systolic and diastolic congestive heart failure-rales remain. Continue aggressive diuresis Chronic renal failure stage III-stable at this time continue to follow daily BMPs Hypertension-stable Sleep apnea-continue BiPAP Morbid obesity-continue education about weight loss Hypothyroidism continue levothyroxine 02/24/2019- Acute hypoxic wrist quintin failure-improved. Patient remained on BiPAP overnight I have told patient to continue BiPAP for the next day as much as he can tolerate. Continue high flow oxygen during meals. Continue diuresis with Bumex 2 mg 3 times daily until we see a significant bump in his creatinine. Continue to follow. Acute on chronic systolic and diastolic left heart failure. Improved. Rales have subsided. Continue diuresis. Chronic renal failure stage III-improved today creatinine slightly increased from yesterday. Continue to follow with daily renal panel Hypertension-stable Sleep apnea continue BiPAP Morbid obesity weight loss education Hypothyroidism continue levothyroxine 02/25/2019- Acute hypoxic respiratory failure-improved. Patient remains on BiPAP overnight. Patient's lungs are much clear at this time he is showing an improvement in his creatinine with diuresis. We will continue Bumex 2 mg IV 3 times daily until we do see a bump in his creatinine. Acute on chronic systolic and diastolic left heart failure-improved. Lungs are clear. Continue diuresis as his creatinine is improving we will continue until we see a bump in his creatinine. Chronic renal failure stage III-improving today we will continue to follow daily renal panels. Hypertension-stable Sleep apnea-continue BiPAP Morbid obesity-continue weight loss educated Hypothyroidism continue levothyroxine - Additional Information Resuscitation Status: Do Not Resuscitate Discharge Diet: Cardiac, Diabetic Discharge Activity: Activity As Tolerated, Balance Activity w/Rest, Weigh Daily [facility]errals: [facility] [[facility] - Follow up as needed ([facility] Home Medications: Allopurinol [Zyloprim 100 mg Tablet] 100 mg PO DAILY 02/20/19 Apixaban [Eliquis 5 mg Tablet] 5 mg PO Q12 02/20/19 Atorvastatin Calcium [Lipitor 80 mg Tablet] 40 mg PO QHS 02/20/19 Bumetanide [Bumex 1 mg Tablet] 2 mg PO DAILY 02/20/19 Carvedilol [Coreg 25 mg Tablet] 25 mg PO Q12 02/20/19 Docusate Sodium [Colace 100 mg Capsule] 100 mg PO BID 02/20/19 Isosorbide Mononitrate [Imdur 30 mg Tablet.er] 90 mg PO DAILY 02/20/19 Levothyroxine Sodium [Synthroid 0.025 mg Tablet] 0.025 mg PO Q6AM 02/20/19 Liraglutide [Victoza 2-Dewayne] 1.8 mg SQ DAILY 02/20/19 Lisinopril [Prinivil] 10 mg PO DAILY 02/20/19 Loratadine [Claritin 10 mg Tablet] 10 mg PO DAILY 02/20/19 Magnesium Oxide [Mag-Ox 400 mg Tablet] 400 mg PO DAILY 02/20/19 Metformin HCl [Glucophage 500 mg Tablet] 1,000 mg PO BID 02/20/19 Potassium Chloride [Klor-Con M10] 20 meq PO DAILY 02/20/19 Ranitidine HCl [Heartburn Relief 150] 150 mg PO BID 02/20/19 Tamsulosin HCl [Flomax 0.4 mg Cap.sr] 0.4 mg PO DAILY 02/20/19 History of Present Illiness History of Present Illness: GRACE LEONE is a 73 year old male with a history of coronary disease and bypass surgery with a history of congestive heart failure systolic and diastolic in nature with a 3-day history of increased shortness of breath. Hospital Course Hospital Course: Patient was admitted to the ER with a 3-day history of increased shortness of breath. Patient has a medical history including coronary disease with stents as well as bypass surgery, congestive heart failure systolic and diastolic class IV, diabetes mellitus, hypertension, morbid obesity, obstructive sleep apnea and marked peripheral edema with lymphedema. He denies any fevers or chills in the ER was found to have an acute exacerbation of his chronic congestive heart failure with hypoxic respiratory failure. Patient was placed on IMCU and aggressively diuresed with Bumex IV. Over the course of days patient diuresed well and was able to return to her baseline with his O2 sats and mobility. Patient is improved sufficiently at this time to return home [facility] Patient has been educated to make sure he wears his oxygen at home as well as a CPAP at night. Patient will continue medications that he previously took on an outpatient basis including Bumex. Patient is in agreement with plan of care. Physical Exam Vital Signs: Temp Pulse Resp BP Pulse Ox 98.4 F 100 24 H 125/58 L 94 02/26/19 05:14 02/26/19 07:00 02/26/19 05:14 02/26/19 05:14 02/26/19 05:14 Pulse Oximeter Continuous Start: 02/20/19 16:30 Freq: RTQ4 Status: Active Protocol: Document 02/26/19 04:51 DBE (Rec: 02/26/19 04:53 DBE [id number]) Pulse Oximetry Assessment Oxygen Saturation (92-100) 95 Oxygen Delivery Method CPAP Fraction of Inspired Oxygen (FIO2) 30 Equipment Usage Equipment in Use Continuous SpO2 Machine # 4 Intake & Output 02/25/19 02/26/19 02/27/19 06:59 06:59 06:59 Intake Total 2806 7922 Output Total 8393 3467 Balance -1156 -8391 Weight 143.2 kg 141.8 kg General appearance: PRESENT: no acute distress, well-developed, well-nourished Neck exam: ABSENT: carotid bruit, JVD, lymphadenopathy, thyromegaly Respiratory exam: PRESENT: clear to auscultation shala. ABSENT: rales, rhonchi, wheezes Cardiovascular exam: PRESENT: RRR. ABSENT: diastolic murmur, rubs, systolic murmur Pulses: PRESENT: +1 pedal pulses bilateral Vascular exam: PRESENT: normal capillary refill Extremities exam: PRESENT: full ROM, pedal edema, +2 edema. ABSENT: calf tenderness, clubbing Neurological exam: PRESENT: alert, awake, oriented to person, oriented to place, oriented to time, oriented to situation, CN II-XII grossly intact. ABSENT: motor sensory deficit Psychiatric exam: PRESENT: appropriate affect, normal mood. ABSENT: homicidal ideation, suicidal ideation Skin exam: PRESENT: dry, intact, warm, other - Chronic lymphedema bilateral lower extremities. ABSENT: cyanosis, rash Results Laboratory Results: WBC 7.6 10^3/uL (4.0-10.5) 02/26/19 04:59 RBC 4.06 10^6/uL (4.35-5.55) L 02/26/19 04:59 Hgb 11.6 g/dL (13.5-17.0) L 02/26/19 04:59 Hct 35.3 % (37.9-51.0) L 02/26/19 04:59 MCV 87 fl (80-97) 02/26/19 04:59 MCH 28.5 pg (27.0-33.4) 02/26/19 04:59 MCHC 32.9 g/dL (32.0-36.0) 02/26/19 04:59 RDW 17.2 % (11.5-14.0) H 02/26/19 04:59 Plt Count 191 10^3/uL (150-450) 02/26/19 04:59 Lymph % (Auto) 5.4 % (13-45) L 02/21/19 07:57 Fisher % (Auto) 6.3 % (3-13) 02/21/19 07:57 Eos % (Auto) 0.9 % (0-6) 02/21/19 07:57 Baso % (Auto) 0.5 % (0-2) 02/21/19 07:57 Absolute Neuts (auto) 9.3 10^3/uL (1.7-8.2) H 02/21/19 07:57 Absolute Lymphs (auto) 0.6 10^3/uL (0.5-4.7) 02/21/19 07:57 Absolute Monos (auto) 0.7 10^3/uL (0.1-1.4) 02/21/19 07:57 Absolute Eos (auto) 0.1 10^3/uL (0.0-0.6) 02/21/19 07:57 Absolute Basos (auto) 0.0 10^3/uL (0.0-0.2) 02/21/19 07:57 Seg Neutrophils % 86.9 % (42-78) H 02/21/19 07:57 PT 24.0 SEC (11.4-15.4) H 02/20/19 10:22 INR 2.11 02/20/19 10:22 Carbonic Acid 1.98 mmol/L (1.05-1.35) H 02/21/19 04:59 HCO3/H2CO3 Ratio 15:1 02/21/19 04:59 ABG pH 7.28 (7.35-7.45) L 02/21/19 04:59 ABG pCO2 65.7 mmHg (35-45) H 02/21/19 04:59 ABG pO2 40.5 mmHg (80-100) L* 02/21/19 04:59 ABG HCO3 30.5 mmol/L (20-24) H 02/21/19 04:59 ABG Total CO2 32.5 mmol/L (23-27) H 02/21/19 04:59 ABG O2 Saturation 67.8 % (94-98) L 02/21/19 04:59 ABG Base Excess 2.4 mmol/L 02/21/19 04:59 VBG pH 7.34 (7.30-7.42) 02/20/19 10:22 VBG pCO2 57.8 mmHg (35-63) 02/20/19 10:22 VBG HCO3 30.3 mmol/L (20-32) 02/20/19 10:22 VBG Base Excess 3.1 mmol/L 02/20/19 10:22 FiO2 100% 02/21/19 04:59 Sodium 141.9 mmol/L (137-145) 02/26/19 04:59 Potassium 3.4 mmol/L (3.6-5.0) L 02/26/19 04:59 Chloride 89 mmol/L (98-107) L 02/26/19 04:59 Carbon Dioxide 43 mmol/L (22-30) H* 02/26/19 04:59 Anion Gap 10 (-19) 02/26/19 04:59 BUN 45 mg/dL (7-20) H 02/26/19 04:59 Creatinine 1.56 mg/dL (0.52-1.25) H 02/26/19 04:59 Est GFR ( Amer) 53 (>60) L 02/26/19 04:59 Est GFR (Non-Af Amer) Cancelled 02/24/19 06:25 Est GFR (MDRD) Non-Af 44 (>60) L 02/26/19 04:59 Glucose 188 mg/dL (75-110) H 02/26/19 04:59 POC Glucose 174 mg/dL (70-110) H 02/26/19 07:37 Hemoglobin A1c % 7.4 % (4.7-6.0) H 02/21/19 07:57 Lactic Acid 1.6 mmol/L (0.7-2.1) 02/20/19 10:22 Calcium 9.3 mg/dL (8.4-10.2) 02/26/19 04:59 Magnesium 1.9 mg/dL (1.6-2.3) 02/21/19 07:57 Creatine Kinase 50 U/L (55-170) L 02/20/19 10:22 Troponin I 0.053 ng/mL 02/21/19 07:57 NT-Pro-B Natriuret Pep 1500 pg/mL (5-900) H 02/21/19 07:57 Triglycerides 96 mg/dL (<150) 02/21/19 07:57 Cholesterol 115.87 mg/dL (0-200) 02/21/19 07:57 LDL Cholesterol Direct 54 mg/dL (<100) 02/21/19 07:57 VLDL Cholesterol 19.0 mg/dL (10-31) 02/21/19 07:57 HDL Cholesterol 31 mg/dL (>40) L 02/21/19 07:57 EGFR Cancelled 02/24/19 06:25 02/20/19 02/20/19 02/20/19 10:22 17:46 22:35 Troponin I 0.075 0.083 0.071 NT-Pro-B Natriuret Pep 2610 H 02/21/19 07:57 Troponin I 0.053 NT-Pro-B Natriuret Pep 1500 H Impressions: Chest X-Ray 02/20/19 10:07 IMPRESSION: CARDIAC ENLARGEMENT. VASCULAR CONGESTION. Plan Time Spent: Greater than 30 Minutes Stroke Is this a Stroke Patient?: No Acute Heart Failure - Is this a Heart Failure Patient?: Yes Documentation of LVEF assessment?: Yes LVEF < 40%?: No- if no continue to question #3 3. Anticoagulant therapy for permanect/persistent/paraoxysmal Afib or Aflutter: Yes Follow-up Appointment scheduled within 7 days?: Yes
[2019-02-26] MEDS: APIXABAN 5 MG TABLET PO SCH (09:58)
[2019-02-26] MEDS: CARVEDILOL 12.5 MG TABLET PO SCH (09:58)
[2019-02-26] MEDS: BUMETANIDE INJ/PF 1 MG/4 ML SDV IV SCH (09:58)
[2019-02-26] MEDS: ISOSORBIDE MONONITRATE 60 MG TAB.ER.24H PO SCH (09:59)
[2019-02-26] MEDS: LORATADINE 10 MG TABLET PO SCH (09:59)
[2019-02-26] MEDS: POTASSIUM CHLORIDE 10 MEQ CAPSULE.ER PO SCH (09:59)
[2019-02-26] MEDS: FAMOTIDINE 20 MG TABLET PO SCH (09:59)
[2019-02-26] MEDS: DOCUSATE SODIUM 100 MG CAPSULE PO SCH (09:59)
[2019-02-26] MEDS: ASPIRIN 81 MG TABLET, ENT COATED PO SCH (09:59)
[2019-02-26] MEDS: MAGNESIUM OXIDE 400 MG TABLET PO SCH (09:59)
[2019-02-26 12:08] VITALS: BP 152/68
== END 2019-02-26 13:40 | disposition home or self-care (01) | DRG 189 ==
LOC: ER 09:52 → EH 14:01 → 3W 15:44
PROVIDERS: ADMIT Hospitalist; ATTEND Hospitalist
PROC: 5A09557 Assistance with Respiratory Ventilation, Greater than 96 Consecutive Hours, Continuous Positive Airway Pressure (ICD-10-PCS; principal; 2019-02-20)
DX: J96.01 Acute respiratory failure with hypoxia (principal); I50.43 Acute on chronic combined systolic (congestive) and diastolic (congestive) heart failure; I13.0 Hypertensive heart and chronic kidney disease with heart failure and stage 1 through stage 4 chronic kidney disease, or unspecified chronic kidney disease; E66.2 Morbid (severe) obesity with alveolar hypoventilation; Z68.42 Body mass index [BMI] 45.0-49.9, adult; N18.3 Chronic kidney disease, stage 3 (moderate); E11.22 Type 2 diabetes mellitus with diabetic chronic kidney disease; I25.10 Atherosclerotic heart disease of native coronary artery without angina pectoris; E03.9 Hypothyroidism, unspecified; D63.1 Anemia in chronic kidney disease; Z66 Do not resuscitate; Z79.899 Other long term (current) drug therapy; Z95.1 Presence of aortocoronary bypass graft; Z95.5 Presence of coronary angioplasty implant and graft; Z99.81 Dependence on supplemental oxygen; Z85.3 Personal history of malignant neoplasm of breast; Z85.828 Personal history of other malignant neoplasm of skin; Z90.10 Acquired absence of unspecified breast and nipple; Z90.5 Acquired absence of kidney; Z82.49 Family history of ischemic heart disease and other diseases of the circulatory system; Z80.3 Family history of malignant neoplasm of breast; Z80.59 Family history of malignant neoplasm of other urinary tract organ; Z80.8 Family history of malignant neoplasm of other organs or systems; Z79.4 Long term (current) use of insulin; Z79.82 Long term (current) use of aspirin; Z88.8 Allergy status to other drugs, medicaments and biological substances
CPT/HCPCS: 36415; 36600; 71045; 80048; 80061; 82550; 82803; 82962; 83036; 83605; 83735; 83880; 84484; 85025; 85027; 85610; 87040; 93005; 93010; 94660; 94762; 96374; 99291; J1815; J1940; J3490

== ENCOUNTER 2019-05-07 11:06 | Inpatient (IN) | payer OTHER, MEDICARE ==
--- NOTE | 2019-05-07 11:32 | ER Document Report ---
ED Medical Screen (RME) - General Chief Complaint: Breathing Difficulty Stated Complaint: BREATHING PROBLEMS Time Seen by Provider: 05/07/19 11:22 Primary Care Provider: PAWAN,SHIVANI [Primary Care Provider] - Follow up as needed Notes: Patient is a 74-year-old male with history of congestive heart failure, type 2 diabetes, oxygen dependent, CABG patient reports he developed shortness of breath last night. Patient reports this continued get worse. Patient reports productive cough with green sputum. Patient denies fever who presents emergency department with a chief complaint of shortness of breath., Nausea vomiting or diarrhea. Patient reports he has noticed increased swelling to his lower extremities. Patient reports he is on Eliquis. Patient reports he primarily wears 2 L nasal cannula of oxygen at home but has needed 3 L. Patient reports he has had more shortness of breath with exertion. TRAVEL OUTSIDE OF THE [place] IN LAST 30 DAYS: No - Related Data Allergies/Adverse Reactions: spironolactone Allergy (Verified 02/20/19 11:48) Past Medical History - Past Medical History Cardiac Medical History: Reports: Hx Atrial Fibrillation, Hx Congestive Heart Failure, Hx Coronary Artery Disease, Hx Hypertension Denies: Hx Heart Attack Pulmonary Medical History: Reports: Hx Pneumonia, Hx Sleep Apnea Denies: Hx Asthma, Hx Bronchitis, Hx COPD Neurological Medical History: Denies: Hx Cerebrovascular Accident, Hx Seizures Endocrine Medical History: Reports: Hx Diabetes Mellitus Type 1, Hx Diabetes Mellitus Type 2 Renal/ Medical History: Denies: Hx Peritoneal Dialysis Musculoskeltal Medical History: Reports Hx Arthritis Skin Medical History: Denies Hx Eczema, Denies Hx Psoriasis Past Surgical History: Reports: Hx Cardiac Surgery, Hx Coronary Artery Bypass Graft, Hx Kidney (Renal Surgery), Hx Orthopedic Surgery, Other - Mastectomy for breast cancer, partial nephrectomy on the left - Immunizations Hx Diphtheria, Pertussis, Tetanus Vaccination: No Course - Re-evaluation Re-evalutation: 05/07/19 11:33 Patient tachypneic and hypoxic with oxygen saturation of 86 and triage on 3 L nasal cannula. Patient to be brought back to a room immediately. Patient was on his home O2 3 L, on demand. Continuous oxygen given. Patient to be evaluated by provider and back to determine if BiPAP is unnecessary if patient does not improve on continuous nasal cannula. I have greeted and performed a rapid initial assessment of this patient. A comprehensive ED assessment and evaluation of the patient, analysis of test results and completion of the medical decision making process will be conducted by additional ED providers. Doctor's Discharge - Discharge [facility]errals[facility] - Follow up as needed
[2019-05-07 12:21] LABS: ABSOLUTE EOSINOPHILS # (AUTO) 0.1 10^3/uL (0.0-0.6); ABSOLUTE LYMPHOCYTES (AUTO) 0.9 10^3/uL (0.5-4.7); ABSOLUTE MONOCYTES (AUTO) 0.4 10^3/uL (0.1-1.4); ABSOLUTE NEUT (AUTO) 5.5 10^3/uL (1.7-8.2); BASOPHILS % (AUTO) 0.5 % (0-2); EOSINOPHILS % (AUTO) 1.5 % (0-6); HEMOGLOBIN 11.4 g/dL (13.5-17.0); LYMPHOCYTES % (AUTO) 12.6 % (13-45); MEAN CORPUSCULAR HEMOGLOBIN 28.8 pg (27.0-33.4); MEAN CORPUSCULAR HGB CONC 32.7 g/dL (32.0-36.0); MEAN CORPUSCULAR VOLUME 88 fl (80-97); MONOCYTES % (AUTO) 5.4 % (3-13); PLATELET COUNT 178 10^3/uL (150-450); RED BLOOD COUNT 3.97 10^6/uL (4.35-5.55); RED CELL DISTRIBUTION WIDTH 18.5 % (11.5-14.0); TOTAL CELLS COUNTED % (AUTO) 100 %; WHITE BLOOD COUNT 6.8 10^3/uL (4.0-10.5)
[2019-05-07 12:22] LABS: VENOUS BLOOD BASE EXCESS 3.5 mmol/L; VENOUS BLOOD HCO3 32.3 mmol/L (20-32); VENOUS BLOOD PH 7.28 (7.30-7.42)
[2019-05-07 12:25] LABS: VENOUS BLOOD PCO2 71.1 mmHg (35-63)
[2019-05-07 12:33] LABS: INTERNATIONAL RATION (INR) 1.69; PROTHROMBIN TIME 20.1 SEC (11.4-15.4)
[2019-05-07 12:34] LABS: PARTIAL THROMBOPLASTIN TIME 38.7 SEC (23.5-35.8)
[2019-05-07 13:26] LABS: ALKALINE PHOSPHATASE 169 U/L (38-126); ANION GAP 12 (5-19); ASPARTATE AMINO TRANSFERASE 22 U/L (17-59); BILIRUBIN,DIRECT 0.4 mg/dL (0.0-0.4); BILIRUBIN,TOTAL 0.8 mg/dL (0.2-1.3); BLOOD UREA NITROGEN 30 mg/dL (7-20); CALCIUM 9.3 mg/dL (8.4-10.2); CARBON DIOXIDE 33 mmol/L (22-30); CHLORIDE 101 mmol/L (98-107); GLUCOSE 213 mg/dL (75-110); POTASSIUM 4.2 mmol/L (3.6-5.0); TOTAL PROTEIN 7.7 g/dL (6.3-8.2)
[2019-05-07 13:37] LABS: NT PRO BNP 2960 pg/mL (<125); TROPONIN I < 0.012 ng/mL
--- NOTE | 2019-05-07 13:42 | RADIOLOGY REPORT (SQ) ---
EXAM DESCRIPTION: CHEST SINGLE VIEW COMPLETED DATE/TIME: 05/07/2019 12:34 pm REASON FOR STUDY: SHORTNESS OF BREATH, HX. CHF COMPARISON: 02/20/2019 EXAM PARAMETERS: NUMBER OF VIEWS: One view. TECHNIQUE: Single frontal radiographic view of the chest acquired. RADIATION DOSE: NA LIMITATIONS: None. FINDINGS: LUNGS AND PLEURA: Vascular congestion. Small pleural effusions. Cannot exclude mild pulm onary edema. MEDIASTINUM AND HILAR STRUCTURES: No masses. Contour normal. HEART AND VASCULAR STRUCTURES: Chronic cardiomegaly. BONES: No acute findings. HARDWARE: None in the chest. OTHER: No other significant finding. IMPRESSION: Chronic cardiomegaly. Cannot exclude mild pulmonary edema. Small pleural effusions. TECHNICAL DOCUMENTATION: JOB ID: [id number] [employer]- All Rights Reserved Reading location - IP/workstation name: [email or web address]
--- NOTE | 2019-05-07 13:56 | ER Document Report ---
ED Respiratory Problem - General Chief Complaint: Shortness Of Breath Stated Complaint: BREATHING PROBLEMS Time Seen by Provider: 05/07/19 11:22 Primary Care Provider: PAWAN,SHIVANI [Primary Care Provider] - Follow up as needed Mode of Arrival: Medic Information source: Patient Notes: 74-year-old male presents to the emergency department with a complaint of shortness of breath which began yesterday. He was brought into the emergency department with respiratory distress. Presents to the emergency department with respiratory distress. Respiratory distress increased work to breathe with an O2 sat of 80-81 on 3 L nasal cannula. Patient is normally on 2 L nasal cannula at home. He has a history of CHF in the past. He denies chest pain or increased swelling. He has had increase dyspnea on exertion since yesterday. This morning the symptoms worsened. At this time the patient is on BiPAP and breathing with less work to breathe. TRAVEL OUTSIDE OF THE [place] IN LAST 30 DAYS: No - Related Data Allergies/Adverse Reactions: spironolactone Allergy (Verified 02/20/19 11:48) Past Medical History - General Information source: Patient, Relative - Son - Social History Smoking Status: Former Smoker Frequency of alcohol use: None Drug Abuse: None Family History: CAD, Malignancy - Breast cancer and uterine cancer and bone cancer Patient has suicidal ideation: No Patient has homicidal ideation: No - Past Medical History Cardiac Medical History: Reports: Hx Atrial Fibrillation, Hx Congestive Heart Failure, Hx Coronary Artery Disease, Hx Hypertension Denies: Hx Heart Attack Pulmonary Medical History: Reports: Hx Pneumonia, Hx Sleep Apnea Denies: Hx Asthma, Hx Bronchitis, Hx COPD Neurological Medical History: Denies: Hx Cerebrovascular Accident, Hx Seizures Endocrine Medical History: Reports: Hx Diabetes Mellitus Type 1, Hx Diabetes Mellitus Type 2 Renal/ Medical History: Denies: Hx Peritoneal Dialysis Musculoskeletal Medical History: Reports Hx Arthritis Skin Medical History: Denies Hx Eczema, Denies Hx Psoriasis Past Surgical History: Reports: Hx Cardiac Surgery, Hx Coronary Artery Bypass Graft, Hx Kidney (Renal Surgery), Hx Orthopedic Surgery, Other - Mastectomy for breast cancer, partial nephrectomy on the left - Immunizations Hx Diphtheria, Pertussis, Tetanus Vaccination: No Hx Pneumococcal Vaccination: 05/09/15 Review of Systems - Review of Systems Notes: Constitutional: Negative for fever. HENT: Negative for sore throat. Eyes: Negative for visual changes. Cardiovascular: Negative for chest pain. Respiratory: + shortness of breath, WOODSON, increased work of breathing. Gastrointestinal: Negative for abdominal pain, vomiting or diarrhea. Genitourinary: Negative for dysuria. Musculoskeletal: Negative for back pain. Skin: Negative for rash. Neurological: Negative for headaches, weakness or numbness. 10 point ROS negative except as marked above and in HPI. Physical Exam - Vital signs Vitals: Resp BP Pulse Ox 30 H 126/73 H 95 05/07/19 12:04 05/07/19 12:04 05/07/19 12:04 - Notes Notes: PHYSICAL EXAMINATION: Physical Exam: General: Well-nourished well-developed in no acute distress HEENT: NC/AT, pupils equal round and reactive to light, MM moist,nares clear, + JVD Neck: supple, no adenopathy, no masses. Lungs: Coarse breath sounds, bilateral rales CVS: Tachycardia rate and rhythm no murmur gallop or rub Abdomen: Soft active nontender, no masses, no hepatosplenomegaly Ext: 2+ chronic edema Neuro: No focal neurologic findings, follows instruction on command, cranial nerves intact. Skin: Intact no open lesions, no rash Course - Re-evaluation Re-evalutation: 05/07/19 14:02 74-year-old man with presentation of congestive heart failure with hypoxia, EKG reveals a controlled rate atrial fibrillation rate of 81, chest x-ray cardiomegaly with pulmonary edema, patient was hypoxic and satting at 75% when EMS picked him up, he is placed on BiPAP in the emergency department with some improvement. Patient is given Lasix 40 mg IV and I have discussed further treatment in the inpatient hospital setting. Patient and son are agreeable with that plan. 05/07/19 14:18 I discussed the patient with the hospitalist, Dr. Naranjo he has agreed to admit the patient to the [facility] for further evaluation and management. - Vital Signs Vital signs: Temp Pulse Resp BP Pulse Ox 21 H 171/80 H 91 L 05/07/19 14:02 05/07/19 14:02 05/07/19 14:02 - Laboratory Result Diagrams: 05/07/19 12:00 05/07/19 12:00 Laboratory results interpreted by me: 05/07/19 05/07/19 05/07/19 12:00 12:00 12:00 RBC 3.97 L Hgb 11.4 L Hct 35.0 L RDW 18.5 H Lymph % (Auto) 12.6 L Seg Neutrophils % 80.0 H PT APTT VBG pH VBG pCO2 VBG HCO3 Sodium 145.6 H Carbon Dioxide 33 H BUN 30 H Creatinine 1.36 H Est GFR (MDRD) Non-Af 51 L Glucose 213 H Alkaline Phosphatase 169 H NT-Pro-B Natriuret Pep 2960 H 05/07/19 05/07/19 12:00 12:00 RBC Hgb Hct RDW Lymph % (Auto) Seg Neutrophils % PT 20.1 H APTT 38.7 H VBG pH 7.28 L VBG pCO2 71.1 H* VBG HCO3 32.3 H Sodium Carbon Dioxide BUN Creatinine Est GFR (MDRD) Non-Af Glucose Alkaline Phosphatase NT-Pro-B Natriuret Pep - Diagnostic Test Radiology reviewed: Image reviewed, Reports reviewed - Chest x-ray: Cardiomegaly with pulmonary edema, mild effusion - EKG Interpretation by Mo Rhythm: A.Fib - With controlled rate 81, low voltage in frontal leads, nonspecific T wave abnormalities lateral leads, no prior EKG to compare. Discharge - Discharge Clinical Impression: Acute hypoxemic respiratory failure, Acute on chronic systolic and diastolic heart failure, NYHA class 4, Chronic renal failure, stage 3 (moderate), Diabetes mellitus type 2 in obese, Chronic atrial fibrillation, Hypoxemia, Respiratory distress CHF exacerbation Qualifiers: Heart failure type: combined systolic and diastolic Qualified Code(s): I50.43 - Acute on chronic combined systolic (congestive) and diastolic (congestive) heart failure Hypertension Qualifiers: Hypertension type: essential hypertension Qualified Code(s): I10 - Essential (primary) hypertension Condition: Fair Disposition: ADMITTED INPATIENT Admitting Provider: Marcella (Hospitalist) Unit Admitted: IMCU [facility]: [facility] - Follow up as needed
[2019-05-07] MEDS ORDERED: FUROSEMIDE INJ/PF 20 MG/2 ML SDV IV ONE (14:08)
[2019-05-07] MEDS ORDERED: GLUCAGON,HUMAN RECOMB 1 MG INJ IM PRN (15:37)
[2019-05-07] MEDS ORDERED: DEXTROSE 40% GEL 15 GM TUBE PO PRN ×2 (15:37)
[2019-05-07] MEDS ORDERED: DEXTROSE 50%-WATER 25 GM/50 ML DISP.SYRIN IV PRN ×2 (15:37)
--- NOTE | 2019-05-07 15:49 | PDOC H&P ---
History of Present Illness Admission Date/PCP: 05/07/19 14:29 [facility] Patient complains of: Weakness, drowsiness History of Present Illness: GRACE LEONE is a 74 year old male presents with complaints of weakness and some shortness of breath. Patient was recently discharged about 2 months ago after treatment for congestive heart failure. Since discharge patient has seen Dr. Gomez in the office without any changes made to his medical regimen. Yesterday patient started to feel significantly weak and fatigued and was noted by his son's to appear mildly short of breath. Patient himself states that shortness of breath is only mild. Son does admit that yesterday patient also looked very sleepy. Patient does admit to some increasing leg swelling but stable orthopnea as he is sleeping incline chair for years. Denies any chest pain. Endorses mild cough and CPAP compliance. Patient was brought into the hospital for evaluation was noted to be hypercapnic and subsequently admitted under hospitalist service. Of note patient states he has been weighing himself daily at home but endorses no increase in weight. Past Medical History Cardiac Medical History: Reports: Atrial Fibrillation, Congestive Heart Failure, Coronary Artery Disease, Hypertension Denies: Myocardial Infarction Pulmonary Medical History: Reports: Pneumonia, Sleep Apnea Denies: Asthma, Bronchitis, Chronic Obstructive Pulmonary Disease (COPD) Neurological Medical History: Denies: Seizures Endocrine Medical History: Reports: Diabetes Mellitus Type 1, Diabetes Mellitus Type 2 Malignancy Medical History: Reports: Breast Cancer Musculoskeltal Medical History: Reports: Arthritis Skin Medical History: Denies: Eczema, Psoriasis Hematology: Reports: Anemia Past Surgical History Past Surgical History: Reports: Coronary Artery Bypass Graft, Orthopedic Surgery, Other - Mastectomy for breast cancer, partial nephrectomy on the left Social History Information Source: Patient Lives with: Family Smoking Status: Former Smoker Frequency of Alcohol Use: None Hx Recreational Drug Use: No Drugs: None Hx Prescription Drug Abuse: No - Advance Directive Resuscitation Status: Full Code Family History Family History: CAD, Malignancy - Breast cancer and uterine cancer and bone cancer Parental Family History Reviewed: Yes Children Family History Reviewed: NA Sibling(s) Family History Reviewed.: Yes Medication/Allergy Home Medications: Allopurinol [Zyloprim 100 mg Tablet] 100 mg PO DAILY 02/20/19 Apixaban [Eliquis 5 mg Tablet] 5 mg PO Q12 02/20/19 Atorvastatin Calcium [Lipitor 80 mg Tablet] 40 mg PO QHS 02/20/19 Bumetanide [Bumex 1 mg Tablet] 2 mg PO DAILY 02/20/19 Carvedilol [Coreg 25 mg Tablet] 25 mg PO Q12 02/20/19 Docusate Sodium [Colace 100 mg Capsule] 100 mg PO BID 02/20/19 Isosorbide Mononitrate [Imdur 30 mg Tablet.er] 90 mg PO DAILY 02/20/19 Levothyroxine Sodium [Synthroid 0.025 mg Tablet] 0.025 mg PO Q6AM 02/20/19 Liraglutide [Victoza 2-Dewayne] 1.8 mg SQ DAILY 02/20/19 Lisinopril [Prinivil] 10 mg PO DAILY 02/20/19 Loratadine [Claritin 10 mg Tablet] 10 mg PO DAILY 02/20/19 Magnesium Oxide [Mag-Ox 400 mg Tablet] 400 mg PO DAILY 02/20/19 Metformin HCl [Glucophage 500 mg Tablet] 1,000 mg PO BID 02/20/19 Potassium Chloride [Klor-Con M10] 20 meq PO DAILY 02/20/19 Ranitidine HCl [Heartburn Relief 150] 150 mg PO BID 02/20/19 Tamsulosin HCl [Flomax 0.4 mg Cap.sr] 0.4 mg PO DAILY 02/20/19 Allergies/Adverse Reactions: spironolactone Allergy (Verified 02/20/19 11:48) Review of Systems Constitutional: ABSENT: chills, fever(s) Eyes: ABSENT: visual disturbances Nose, Mouth, and Throat: ABSENT: headache(s) Cardiovascular: PRESENT: edema, other - Stable chronic orthopnea sleeps on an incliner but no recent adjustments. ABSENT: chest pain Respiratory: PRESENT: cough Gastrointestinal: ABSENT: abdominal pain Genitourinary: ABSENT: difficulty urinating Musculoskeletal: ABSENT: back pain Integumentary: ABSENT: diaphoresis Neurological: ABSENT: confusion Psychiatric: ABSENT: anxiety Physical Exam Vital Signs: Temp Pulse Resp BP Pulse Ox 21 H 171/80 H 91 L 05/07/19 14:02 05/07/19 14:02 05/07/19 14:02 General appearance: PRESENT: morbidly obese Neck exam: ABSENT: JVD - Hard to appreciate given body habitus Respiratory exam: PRESENT: clear to auscultation shala, symmetrical, unlabored. ABSENT: tachypnea, wheezes Cardiovascular exam: PRESENT: RRR, +S1, +S2. ABSENT: tachycardia GI/Abdominal exam: PRESENT: normal bowel sounds, soft. ABSENT: rebound, rigid, tenderness Neurological exam: PRESENT: alert, awake, oriented to person, oriented to place, oriented to time, oriented to situation Results Laboratory Results: 05/07/19 12:00 05/07/19 12:00 05/07/19 05/07/19 05/07/19 12:00 12:00 12:00 WBC 6.8 RBC 3.97 L Hgb 11.4 L Hct 35.0 L MCV 88 MCH 28.8 MCHC 32.7 RDW 18.5 H Plt Count 178 Seg Neutrophils % 80.0 H VBG pH 7.28 L VBG pCO2 71.1 H* VBG HCO3 32.3 H VBG Base Excess 3.5 Sodium 145.6 H Potassium 4.2 Chloride 101 Carbon Dioxide 33 H Anion Gap 12 BUN 30 H Creatinine 1.36 H Est GFR ( Amer) > 60 Glucose 213 H Calcium 9.3 Total Bilirubin 0.8 AST 22 Alkaline Phosphatase 169 H Total Protein 7.7 Albumin 4.0 05/07/19 12:00 Troponin I < 0.012 NT-Pro-B Natriuret Pep 2960 H Impressions: Chest X-Ray 05/07/19 11:28 IMPRESSION: Chronic cardiomegaly. Cannot exclude mild pulmonary edema. Small pleural effusions. Assessment and Plan - Diagnosis (1) Acute hypercapnic respiratory failure Is this a current diagnosis for this admission?: Yes Plan: Secondary to decompensated heart failure versus undiagnosed obesity hypoventilation syndrome Maintained on BiPAP. PCO2 on admission is 71 with pH of 7.28 Repeat ABG now and will readjust BiPAP parameters as needed (2) Acute on chronic diastolic (congestive) heart failure Is this a current diagnosis for this admission?: Yes Plan: Chest x-ray showing cardiomegaly with some pulmonary edema and BNP is elevated to 2900 which is increased from baseline on last admission Diuresis with Bumex 2 mg IV twice daily [home dose of Bumex 2 mg p.o. daily] Consult Dr. Grace is patient's primary travel registered nurse icu Strict I's and O's, 1500 cc fluid restriction, Weigh daily and resume other cardiac meds. We will repeat echo to evaluate RVSP and to evaluate ejection fraction as last echo was 2 years ago (3) Diabetes mellitus type 2 in obese Is this a current diagnosis for this admission?: Yes Plan: Sliding scale insulin, continue metformin, ADA diet Accuchecks (4) Coronary artery disease Qualifiers: Coronary Disease-Associated Artery/Lesion type: [place] artery [place] vs. transplanted heart: [place] heart Associated angina: without angina Qualified Code(s): I25.10 - Atherosclerotic heart disease of [place] coronary artery without angina pectoris Is this a current diagnosis for this admission?: Yes (5) Morbid obesity Is this a current diagnosis for this admission?: Yes (6) Chronic renal failure, stage 3 (moderate) Is this a current diagnosis for this admission?: Yes Plan: Creatinine at baseline. We will continue to monitor via BMP. (7) Obstructive sleep apnea Is this a current diagnosis for this admission?: Yes Plan: Patient and son state that patient has been very compliant with CPAP If patient is still having hypercapnic respiratory failure despite diuresis, patient will likely need conversion to BiPAP nocturnally for undiagnosed OHS - Time Time Spent with patient: 35 or more minutes
[2019-05-07 16:05] LABS: ARTERIAL BLOOD BASE EXCESS 4.1 mmol/L; ARTERIAL BLOOD H2CO3 1.97 mmol/L (1.05-1.35); ARTERIAL BLOOD HCO3 32.5 mmol/L (20-24); ARTERIAL BLOOD O2 SATURATION 72.6 % (94-98); ARTERIAL BLOOD PCO2 65.3 mmHg (35-45); ARTERIAL BLOOD PH 7.32 (7.35-7.45); ARTERIAL BLOOD PO2 42.6 mmHg (80-100); ARTERIAL BLOOD TOTAL CO2 34.5 mmol/L (23-27)
[2019-05-07 16:06] LABS: ARTERIAL BLOOD FIO2 40%
[2019-05-07] MEDS: INSULIN LISPRO 100 UNIT/ML 3 ML VIAL SUBCUT SCH ×2 (16:39→22:02)
[2019-05-07] MEDS: APIXABAN 5 MG TABLET PO SCH (17:24)
[2019-05-07] MEDS: METFORMIN HCL 500 MG TABLET PO SCH (17:24)
[2019-05-07] MEDS: BUMETANIDE INJ/PF 1 MG/4 ML SDV IV SCH (17:25)
[2019-05-07] MEDS ORDERED: NITROGLYCERIN 0.4 MG/TAB 25 TAB/BOTTLE SL PRN (18:58)
[2019-05-07] MEDS: CARVEDILOL 12.5 MG TABLET PO SCH (22:05)
[2019-05-07] MEDS: ATORVASTATIN CALCIUM 40 MG TABLET PO SCH (22:05)
[2019-05-07] MEDS: LISINOPRIL 10 MG TABLET PO SCH (22:05)
[2019-05-07] MEDS: FAMOTIDINE 20 MG TABLET PO SCH (22:05)
--- NOTE | 2019-05-07 22:43 | PDOC CONSULTATION ---
Consultation-Blank Consultation: CARDIOLOGY CONSULTATION by Dr. Mel Gomez on 05/07/2019. Patient seen at 5 PM on 05/07/2019. 60 minutes spent with patient more than 50% of time spent in direct patient care. CONSULT REQUESTING PHYSICIAN Dr[facility] PALACI[facility] REASON FOR CONSULTATION: Heart failure. HISTORY OF PRESENT ILLNESS: Patient is a morbidly obese 74 male with a history of hypertension, paroxysmal atrial fibrillation, chronic leg edema, history of congestive heart failure, history of aortic regurgitation. And history of coronary artery disease history of coronary artery bypass graft surgery noted to be very lethargic and sleepy by the patient's son and hence brought to the emergency room where he was found to be hypercapnic. The patient does wear his CPAP diligently. He denies any chest pain discomfort. He has chronic orthopnea. There is no increase in his leg edema or weight gain. He also has a history of chronic kidney disease and no symptoms of urinary tract infection. He has no PND. He denies any shortness of breath. There is no cough wheezing or asthma. In spite of him way of wearing his CPAP regularly he was found to be hypercapnic, and in view of the patient's obesity suggest the possibility of mixed obstructive and central sleep apnea. He has no anginal symptoms. He denies any palpitations, rapid beating of his heart, or syncope. The patient was seen in the office on April 10, 2019. The patient was stable and hence his medications were not changed. I ordered the stress test and echocardiogram, which the patient has been scheduled for but has not yet added. Past Medical History Cardiac Medical History: Reports: Atrial Fibrillation, Congestive Heart Failure, Coronary Artery Disease, Hypertension Denies: Myocardial Infarction. He has a history of coronary artery bypass graft surgery. History of stent placement. No recent anginal symptoms. History of chronic leg edema. Pulmonary Medical History: Reports: Pneumonia, Sleep Apnea, the patient does wear CPAP. But is not clear if his CPAP machine has been checked recently. Denies: Asthma, Bronchitis, Chronic Obstructive Pulmonary Disease (COPD) Neurological Medical History: Denies: Seizures Endocrine Medical History: Reports: Diabetes Mellitus Type 2 and hypothyroidism. Malignancy Medical History: Reports: Breast Cancer Musculoskeltal Medical History: Reports: Arthritis Skin Medical History: Denies: Eczema, Psoriasis Hematology: Reports: Anemia GENITOURINARY: Patient has history of chronic kidney disease stage III. The patient also has had a left partial nephrectomy. WELDING INSPECTOR: He has no history of TIA CVA. He has no history of seizures headaches or migraines. Past Surgical History Past Surgical History: Reports: Coronary Artery Bypass Graft, Orthopedic Surgery, Other - Mastectomy for breast cancer, partial nephrectomy on the left Social History Information Source: Patient Lives with: Family Smoking Status: Former Smoker Frequency of Alcohol Use: None Hx Recreational Drug Use: No Drugs: None Hx Prescription Drug Abuse: No - Advance Directive Resuscitation Status: Full Code. The patient's son is a surrogate healthcare decision maker. Family History Family History: CAD, Malignancy - Breast cancer and uterine cancer and bone cancer Parental Family History Reviewed: Yes Children Family History Reviewed: NA Sibling(s) Family History Reviewed.: Yes Medication/Allergy Home Medications: Allopurinol [Zyloprim 100 mg Tablet] 100 mg PO DAILY 02/20/19 Apixaban [Eliquis 5 mg Tablet] 5 mg PO Q12 02/20/19 Atorvastatin Calcium [Lipitor 80 mg Tablet] 40 mg PO QHS 02/20/19 Bumetanide [Bumex 1 mg Tablet] 2 mg PO DAILY 02/20/19 Carvedilol [Coreg 25 mg Tablet] 25 mg PO Q12 02/20/19 Docusate Sodium [Colace 100 mg Capsule] 100 mg PO BID 02/20/19 Isosorbide Mononitrate [Imdur 30 mg Tablet.er] 90 mg PO DAILY 02/20/19 Levothyroxine Sodium [Synthroid 0.025 mg Tablet] 0.025 mg PO Q6AM 02/20/19 Liraglutide [Victoza 2-Dewayne] 1.8 mg SQ DAILY 02/20/19 Lisinopril [Prinivil] 10 mg PO DAILY 02/20/19 Loratadine [Claritin 10 mg Tablet] 10 mg PO DAILY 02/20/19 Magnesium Oxide [Mag-Ox 400 mg Tablet] 400 mg PO DAILY 02/20/19 Metformin HCl [Glucophage 500 mg Tablet] 1,000 mg PO BID 02/20/19 Potassium Chloride [Klor-Con M10] 20 meq PO DAILY 02/20/19 Ranitidine HCl [Heartburn Relief 150] 150 mg PO BID 02/20/19 Tamsulosin HCl [Flomax 0.4 mg Cap.sr] 0.4 mg PO DAILY 02/20/19 Allergies/Adverse Reactions: spironolactone Allergy (Verified 02/20/19 11:48) Review of Systems Constitutional: ABSENT: chills, fever(s) Eyes: ABSENT: visual disturbances Nose, Mouth, and Throat: ABSENT: headache(s) Cardiovascular: PRESENT: edema, other - Stable chronic orthopnea sleeps on an incliner but no recent adjustments. ABSENT: chest pain. Denies shortness of breath. History of proximal atrial fibrillation on Eliquis. No bleeding on Eliquis. No TIA CVA symptoms. Respiratory: PRESENT: cough Gastrointestinal: ABSENT: abdominal pain Genitourinary: ABSENT: difficulty urinating Musculoskeletal: ABSENT: back pain Integumentary: ABSENT: diaphoresis Neurological: ABSENT: confusion Psychiatric: ABSENT: anxiety Current Medications Generic Name Dose Route Start Last Admin Trade Name Freq PRN Reason Stop Dose Admin Allopurinol 100 mg 05/08/19 10:00 Zyloprim 100 Mg Tablet PO 06/07/19 09:59 DAILY YANIRA Apixaban 5 mg 05/07/19 18:00 05/07/19 17:24 Eliquis 5 Mg Tablet PO 06/06/19 17:59 5 mg BID YANIRA Administration Atorvastatin Calcium 40 mg 05/07/19 22:00 05/07/19 22:05 Lipitor 40 Mg Tablet PO 06/06/19 21:59 40 mg QHS YANIRA Administration Bumetanide 2 mg 05/07/19 18:00 05/07/19 17:25 Bumex Inj/Pf 1 Mg/4 Ml Sdv IV 06/06/19 17:59 2 mg BID YANIRA Administration Carvedilol 25 mg 05/07/19 22:00 05/07/19 22:05 Coreg 12.5 Mg Tablet PO 06/06/19 21:59 25 mg Q12 YANIRA Administration Dextrose 12.5 gm 05/07/19 15:37 Dextrose Inj 50% Syringe (25 Gm/50 Ml) IV 06/06/19 15:36 PRN PRN FOR BG 50-69 IN ALERT PATIENT Protocol Dextrose 25 gm 05/07/19 15:37 Dextrose Inj 50% Syringe (25 Gm/50 Ml) IV 06/06/19 15:36 PRN PRN PER PROTOCOL Protocol Docusate Sodium 100 mg 05/08/19 10:00 Colace 100 Mg Capsule PO 06/07/19 09:59 DAILY YANIRA Famotidine 20 mg 05/07/19 22:00 05/07/19 22:05 Pepcid 20 Mg Tablet PO 06/06/19 21:59 20 mg Q12 YANIRA Administration Glucagon 1 mg 05/07/19 15:37 Glucagen Inj 1 Mg Vial IM 06/06/19 15:36 PRN PRN Evaluate for BG < 70 Protocol Glucose 15 gm 05/07/19 15:37 Glutose 40% Gel 15 Gm Tube PO 06/06/19 15:36 PRN PRN FOR BG 50-69 IN ALERT PATIENT Protocol Glucose 30 gm 05/07/19 15:37 Glutose 40% Gel 15 Gm Tube PO 06/06/19 15:36 PRN PRN FOR BG < 50 IN ALERT PATIENT Protocol Insulin Human Lispro 0 - 12 unit 05/07/19 16:00 05/07/19 22:02 Humalog Insulin 100 Unit/1 Ml 3 Ml Vial SUBCUT 06/06/19 15:59 Not Given ACHS [facility] Protocol Isosorbide Mononitrate 90 mg 05/08/19 10:00 Imdur 30 Mg Tablet.Er PO 06/07/19 09:59 DAILY [facility] Levothyroxine Sodium 0.025 mg 05/08/19 06:00 Synthroid 0.025 Mg Tablet PO 06/07/19 05:59 Q6AM YANIRA Lisinopril 10 mg 05/07/19 22:00 05/07/19 22:05 Prinivil 10 Mg Tablet PO 06/06/19 21:59 10 mg Q12 YANIRA Administration Magnesium Oxide 400 mg 05/08/19 10:00 Mag-Ox 400 Mg Tablet PO 06/07/19 09:59 DAILY [facility] Metformin HCl 1,000 mg 05/07/19 16:00 05/07/19 17:24 Glucophage 500 Mg Tablet PO 06/06/19 15:59 1,000 mg BIDACBS YANIRA Administration Nitroglycerin 1 tab 05/07/19 18:58 Nitrostat 0.4 Mg (1/150 Gr) Tabs 25/Bottle SL 06/06/19 18:57 Q5MP PRN CHEST PAIN Potassium Chloride 20 meq 05/08/19 10:00 Klor-Con 10 Meq Tablet Er PO 06/07/19 09:59 DAILY [facility] Sodium Chloride 2.5 ml 05/07/19 22:00 Saline Flush 2.5 Ml Monoject Prefil Syrin IV 06/06/19 21:59 Q8 YANIRA Tamsulosin HCl 0.4 mg 05/08/19 10:00 Flomax 0.4 Mg Cap.Sr PO 06/07/19 09:59 DAILY YANIRA Discontinued Medications Generic Name Dose Route Start Last Admin Trade Name Freq PRN Reason Stop Dose Admin Furosemide 40 mg 05/07/19 14:08 05/07/19 14:26 Lasix Inj/Pf 20 Mg/2 Ml Sdv IV 05/07/19 14:09 40 mg NOW ONE Administration Lisinopril 10 mg 05/08/19 10:00 Prinivil 10 Mg Tablet PO 06/07/19 09:59 DAILY YANIRA PHYSICAL EXAMINATION: The patient is morbidly obese. He is on the BiPAP. In no acute distress. Selected Entries 05/07/19 17:11 Temperature 97.4 F Temperature Axillary Source Pulse Rate 88 Respiratory 27 H Rate Blood Pressure 130/64 H [Right Upper Arm] Blood Pressure 86 Mean [Right Upper Arm] Blood Pressure Supine Position [Right Upper Arm] O2 Sat by Pulse 93 Oximetry Oxygen Delivery Bi-pap Method ( includes room air) Percent of 35 Oxygen HEAD: Is atraumatic. Normocephalic. EYES: Pupils are equal round regular reactive light accommodation. Extraocular movements are normal. ENT is negative. Neck is supple. There is no JVD. Carotids are equal there is no bruit. There is no lymphadenopathy. There is no goiter. There is no accessory muscle respiration use. Trachea central. LUNGS: Some breath sounds in the bases, the rest of the lungs are clear to auscultation percussion. There is no chest wall tenderness. There is no rhonchi rales or wheezing. HEART: S1-S2 is heard S1 is of normal intensity. There is faint murmur of aortic regurgitation. Present. There is systolic murmur left sternal border and the apex. There is no rub. There is no S3 gallop there is no S4 gallop. ABDOMEN: Is obese nontender there is no paraspinal megaly. Bowel sounds are well heard. EXTREMITIES: Femorals are deep. Femorals are diminished. There is no femoral bruits. Leg pulses are faint. There is 2+ chronic edema with the leg being bandaged. There is no cyanosis or clubbing. WELDING INSPECTOR: The patient is conscious awake alert oriented x3 with no focal deficit at present he does not appear to be somnolent. PSYCHIATRIC: The patient judgment insight are intact his affect is normal. Labs- Entire Visit 05/07/19 05/07/19 05/07/19 12:00 12:00 12:00 WBC 6.8 RBC 3.97 L Hgb 11.4 L Hct 35.0 L MCV 88 MCH 28.8 MCHC 32.7 RDW 18.5 H Plt Count 178 Lymph % (Auto) 12.6 L [place] % (Auto) 5.4 Eos % (Auto) 1.5 Baso % (Auto) 0.5 Absolute Neuts (auto) 5.5 Absolute Lymphs (auto) 0.9 Absolute Monos (auto) 0.4 Absolute Eos (auto) 0.1 Absolute Basos (auto) 0.0 Seg Neutrophils % 80.0 H PT INR APTT Carbonic Acid HCO3/H2CO3 Ratio ABG pH ABG pCO2 ABG pO2 ABG HCO3 ABG Total CO2 ABG O2 Saturation ABG Base Excess VBG pH VBG pCO2 VBG HCO3 VBG Base Excess FiO2 Sodium 145.6 H Potassium 4.2 Chloride 101 Carbon Dioxide 33 H Anion Gap 12 BUN 30 H Creatinine 1.36 H Est GFR ( Amer) > 60 Est GFR (MDRD) Non-Af 51 L Glucose 213 H POC Glucose Calcium 9.3 Total Bilirubin 0.8 Direct Bilirubin 0.4 Neonat Total Bilirubin Not Reportable Neonat Direct Bilirubin Not Reportable Neonat Indirect Bili Not Reportable AST 22 ALT 24 Alkaline Phosphatase 169 H Troponin I < 0.012 NT-Pro-B Natriuret Pep 2960 H Total Protein 7.7 Albumin 4.0 05/07/19 05/07/19 05/07/19 12:00 12:00 15:35 WBC RBC Hgb Hct MCV MCH MCHC RDW Plt Count Lymph % (Auto) [place] % (Auto) Eos % (Auto) Baso % (Auto) Absolute Neuts (auto) Absolute Lymphs (auto) Absolute Monos (auto) Absolute Eos (auto) Absolute Basos (auto) Seg Neutrophils % PT 20.1 H INR 1.69 APTT 38.7 H Carbonic Acid 1.97 H HCO3/H2CO3 Ratio 16:1 ABG pH 7.32 L ABG pCO2 65.3 H ABG pO2 42.6 L ABG HCO3 32.5 H ABG Total CO2 34.5 H ABG O2 Saturation 72.6 L ABG Base Excess 4.1 VBG pH 7.28 L VBG pCO2 71.1 H* VBG HCO3 32.3 H VBG Base Excess 3.5 FiO2 40% Sodium Potassium Chloride Carbon Dioxide Anion Gap BUN Creatinine Est GFR ( Amer) Est GFR (MDRD) Non-Af Glucose POC Glucose Calcium Total Bilirubin Direct Bilirubin Neonat Total Bilirubin Neonat Direct Bilirubin Neonat Indirect Bili AST ALT Alkaline Phosphatase Troponin I NT-Pro-B Natriuret Pep Total Protein Albumin 05/07/19 05/07/19 05/07/19 15:35 16:24 21:42 WBC RBC Hgb Hct MCV MCH MCHC RDW Plt Count Lymph % (Auto) [place] % (Auto) Eos % (Auto) Baso % (Auto) Absolute Neuts (auto) Absolute Lymphs (auto) Absolute Monos (auto) Absolute Eos (auto) Absolute Basos (auto) Seg Neutrophils % PT INR APTT Carbonic Acid HCO3/H2CO3 Ratio ABG pH ABG pCO2 ABG pO2 ABG HCO3 ABG Total CO2 ABG O2 Saturation ABG Base Excess VBG pH VBG pCO2 VBG HCO3 VBG Base Excess FiO2 Sodium Potassium Chloride Carbon Dioxide Anion Gap BUN Creatinine Est GFR ( Amer) Est GFR (MDRD) Non-Af Glucose POC Glucose 142 H 135 H Calcium Total Bilirubin Direct Bilirubin Neonat Total Bilirubin Neonat Direct Bilirubin Neonat Indirect Bili AST ALT Alkaline Phosphatase Troponin I < 0.012 NT-Pro-B Natriuret Pep Total Protein Albumin Chest X-Ray 05/07/19 11:28 IMPRESSION: Chronic cardiomegaly. Cannot exclude mild pulmonary edema. Small pleural effusions. IMPRESSION/RECOMMENDATION: 1. Acute on chronic hypercapnic respiratory failure. Suspect this is secondary to sleep apnea which I think is a mixture of obstructive sleep apnea and central sleep apnea 2. Congestive heart failure: Most likely biventricular failure. Continue current treatment. 3. 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 Continue patient's CPAP. We will get nocturnal oximetry to see if the CPAP is working. Also this will see if there are any hypoxic episodes due to central sleep apnea. In view of this we will cautiously add some Diamox., And also Obdulio-Dur will be started. 4. Coronary artery disease: History of coronary bypass graft surgery: Stable with no anginal symptoms. Will order EKG in the morning. 5. Paroxysmal atrial fibrillation: Continue current medication and Eliquis. 6. Aortic regurgitation: Mild. 7. Hypertension: Blood pressure well controlled. 8. Diabetes mellitus: Continue antidiabetic medication and Accu-Cheks as per protocol. 9. Hypothyroidism: Continue thyroid replacement. 10. Bilateral pleural effusions: Continue diuretics. 11. Morbid obesity recommend nutritional consult. Medications reviewed. New medications added. EKG ordered. Medical regimen and management plan discussed with attending physician on the case. Medical decision making is of high complexity. 60 minutes spent as patient more than 50% of time spent in direct patient care. Will follow.
[2019-05-08] MEDS: LEVOTHYROXINE SODIUM 0.025 MG TABLET PO SCH (05:16)
[2019-05-08 05:23] LABS: ABSOLUTE BASOPHILS # (AUTO) 0.1 10^3/uL (0.0-0.2); ABSOLUTE EOSINOPHILS # (AUTO) 0.3 10^3/uL (0.0-0.6); ABSOLUTE LYMPHOCYTES (AUTO) 1.1 10^3/uL (0.5-4.7); ABSOLUTE MONOCYTES (AUTO) 0.5 10^3/uL (0.1-1.4); ABSOLUTE NEUT (AUTO) 5.5 10^3/uL (1.7-8.2); BASOPHILS % (AUTO) 0.9 % (0-2); EOSINOPHILS % (AUTO) 3.4 % (0-6); HEMATOCRIT 34.6 % (37.9-51.0); HEMOGLOBIN 11.4 g/dL (13.5-17.0); LYMPHOCYTES % (AUTO) 15.3 % (13-45); MEAN CORPUSCULAR VOLUME 88 fl (80-97); MONOCYTES % (AUTO) 6.3 % (3-13); PLATELET COUNT 174 10^3/uL (150-450); RED BLOOD COUNT 3.94 10^6/uL (4.35-5.55); RED CELL DISTRIBUTION WIDTH 18.4 % (11.5-14.0); SEGMENTED NEUTROPHILS % (AUTO) 74.1 % (42-78); TOTAL CELLS COUNTED % (AUTO) 100 %; WHITE BLOOD COUNT 7.4 10^3/uL (4.0-10.5)
[2019-05-08 05:39] LABS: ANION GAP 9 (5-19); BLOOD UREA NITROGEN 32 mg/dL (7-20); CALCIUM 9.1 mg/dL (8.4-10.2); CARBON DIOXIDE 33 mmol/L (22-30); CHLORIDE 103 mmol/L (98-107); GLUCOSE 126 mg/dL (75-110); POTASSIUM 3.9 mmol/L (3.6-5.0)
[2019-05-08 06:59] LABS: VENOUS BLOOD BASE EXCESS 4.6 mmol/L; VENOUS BLOOD HCO3 33.4 mmol/L (20-32); VENOUS BLOOD PH 7.28 (7.30-7.42)
[2019-05-08 07:02] LABS: VENOUS BLOOD PCO2 72.6 mmHg (35-63)
--- NOTE | 2019-05-08 07:35 | EKG REPORT ---
SEVERITY:- ABNORMAL ECG - ATRIAL FIBRILLATION MULTIPLE VENTRICULAR PREMATURE COMPLEXES NONSPECIFIC INTRAVENTRICULAR CONDUCTION DELAY LOW VOLTAGE IN FRONTAL LEADS : Confirmed by: Jaime Randhawa MD 08-May-2019 07:35:23
--- NOTE | 2019-05-08 07:36 | EKG REPORT ---
SEVERITY:- ABNORMAL ECG - ATRIAL FIBRILLATION LOW VOLTAGE IN FRONTAL LEADS NONSPECIFIC T ABNORMALITIES, LATERAL LEADS : Confirmed by: Jaime Randhawa MD 08-May-2019 07:35:41
[2019-05-08] MEDS ORDERED: LISINOPRIL 10 MG TABLET PO SCH (10:00)
[2019-05-08] MEDS ORDERED: ACETAZOLAMIDE 250 MG TABLET PO SCH (10:00)
[2019-05-08] MEDS: LISINOPRIL 10 MG TABLET PO SCH ×2 (10:08→22:36)
[2019-05-08] MEDS: BUMETANIDE INJ/PF 1 MG/4 ML SDV IV SCH ×2 (10:08→17:39)
[2019-05-08] MEDS: METFORMIN HCL 500 MG TABLET PO SCH ×2 (10:08→17:39)
[2019-05-08] MEDS: POTASSIUM CHLORIDE 10 MEQ TABLET.ER PO SCH (10:08)
[2019-05-08] MEDS: APIXABAN 5 MG TABLET PO SCH (10:08)
[2019-05-08] MEDS: CARVEDILOL 12.5 MG TABLET PO SCH ×2 (10:09→22:36)
[2019-05-08] MEDS: MAGNESIUM OXIDE 400 MG TABLET PO SCH (10:09)
[2019-05-08] MEDS: ISOSORBIDE MONONITRATE 30 MG TAB.ER.24H PO SCH (10:09)
[2019-05-08] MEDS: THEOPHYLLINE ANHYDROUS 100 MG TAB.SR.12H PO SCH ×2 (10:09→22:35)
[2019-05-08] MEDS: ALLOPURINOL 100 MG TABLET PO SCH (10:09)
[2019-05-08] MEDS: INSULIN LISPRO 100 UNIT/ML 3 ML VIAL SUBCUT SCH ×4 (10:09→22:32)
[2019-05-08] MEDS: DOCUSATE SODIUM 100 MG CAPSULE PO SCH (10:09)
[2019-05-08] MEDS: TAMSULOSIN HCL 0.4 MG CAP.SR.24H PO SCH (10:09)
[2019-05-08] MEDS: FAMOTIDINE 20 MG TABLET PO SCH ×2 (10:09→22:36)
[2019-05-08 11:23] LABS: ARTERIAL BLOOD H2CO3 1.75 mmol/L (1.05-1.35); ARTERIAL BLOOD HCO3 32.7 mmol/L (20-24); ARTERIAL BLOOD O2 SATURATION 95.8 % (94-98); ARTERIAL BLOOD PH 7.37 (7.35-7.45); ARTERIAL BLOOD PO2 83.7 mmHg (80-100); ARTERIAL BLOOD TOTAL CO2 34.5 mmol/L (23-27)
[2019-05-08 11:28] LABS: ARTERIAL BLOOD FIO2 65%
--- NOTE | 2019-05-08 11:39 | PDOC PROGRESS REPORT ---
Subjective Progress Note for:: 05/08/19 Subjective:: Patient is feeling well today. Slept with the BiPAP for the most part but still having some significant hypercapnia this morning. Patient denies any drowsiness or confusion. Patient also maintains full CODE STATUS. Denies significant shortness of breath at the moment. Reason For Visit: HYPERCAPNIC RESP FAILURE, HEART FAILURE Physical Exam Vital Signs: Temp Pulse Resp BP Pulse Ox 97.7 F 88 14 154/68 H 94 05/08/19 07:57 05/08/19 07:57 05/08/19 09:37 05/08/19 07:57 05/08/19 09:37 Intake & Output 05/07/19 05/08/19 05/09/19 06:59 06:59 06:59 Intake Total 480 Output Total 900 Balance -420 Weight 150.3 kg General appearance: PRESENT: no acute distress, cooperative, morbidly obese Neck exam: ABSENT: JVD Respiratory exam: PRESENT: clear to auscultation shala, symmetrical, unlabored. ABSENT: tachypnea, wheezes Cardiovascular exam: PRESENT: RRR, +S1, +S2. ABSENT: tachycardia GI/Abdominal exam: PRESENT: normal bowel sounds, soft. ABSENT: rebound, rigid, tenderness Neurological exam: PRESENT: alert, awake, oriented to person, oriented to place, oriented to time, oriented to situation Results Laboratory Results: 05/08/19 04:34 05/08/19 04:34 05/07/19 05/07/19 05/07/19 12:00 12:00 12:00 WBC 6.8 RBC 3.97 L Hgb 11.4 L Hct 35.0 L MCV 88 MCH 28.8 MCHC 32.7 RDW 18.5 H Plt Count 178 Seg Neutrophils % 80.0 H Carbonic Acid HCO3/H2CO3 Ratio ABG pH ABG pCO2 ABG pO2 ABG HCO3 ABG O2 Saturation ABG Base Excess VBG pH 7.28 L VBG pCO2 71.1 H* VBG HCO3 32.3 H VBG Base Excess 3.5 FiO2 Sodium 145.6 H Potassium 4.2 Chloride 101 Carbon Dioxide 33 H Anion Gap 12 BUN 30 H Creatinine 1.36 H Est GFR ( Amer) > 60 Glucose 213 H Calcium 9.3 Magnesium Total Bilirubin 0.8 AST 22 Alkaline Phosphatase 169 H Total Protein 7.7 Albumin 4.0 05/07/19 05/08/19 05/08/19 15:35 04:34 04:34 WBC 7.4 RBC 3.94 L Hgb 11.4 L Hct 34.6 L MCV 88 MCH 29.0 MCHC 33.0 RDW 18.4 H Plt Count 174 Seg Neutrophils % 74.1 Carbonic Acid 1.97 H HCO3/H2CO3 Ratio 16:1 ABG pH 7.32 L ABG pCO2 65.3 H ABG pO2 42.6 L ABG HCO3 32.5 H ABG O2 Saturation 72.6 L ABG Base Excess 4.1 VBG pH VBG pCO2 VBG HCO3 VBG Base Excess FiO2 40% Sodium 145.3 H Potassium 3.9 Chloride 103 Carbon Dioxide 33 H Anion Gap 9 BUN 32 H Creatinine 1.48 H Est GFR ( Amer) 56 L Glucose 126 H Calcium 9.1 Magnesium 1.7 Total Bilirubin AST Alkaline Phosphatase Total Protein Albumin 05/08/19 05/08/19 06:33 11:05 WBC RBC Hgb Hct MCV MCH MCHC RDW Plt Count Seg Neutrophils % Carbonic Acid 1.75 H HCO3/H2CO3 Ratio 18:1 ABG pH 7.37 ABG pCO2 58.0 H ABG pO2 83.7 ABG HCO3 32.7 H ABG O2 Saturation 95.8 ABG Base Excess 6.0 VBG pH 7.28 L VBG pCO2 72.6 H* VBG HCO3 33.4 H VBG Base Excess 4.6 FiO2 65% Sodium Potassium Chloride Carbon Dioxide Anion Gap BUN Creatinine Est GFR ( Amer) Glucose Calcium Magnesium Total Bilirubin AST Alkaline Phosphatase Total Protein Albumin 05/07/19 05/07/19 12:00 15:35 Troponin I < 0.012 < 0.012 NT-Pro-B Natriuret Pep 2960 H Impressions: Chest X-Ray 05/07/19 11:28 IMPRESSION: Chronic cardiomegaly. Cannot exclude mild pulmonary edema. Small pleural effusions. Assessment and Plan - Diagnosis (1) Acute hypercapnic respiratory failure Is this a current diagnosis for this admission?: Yes Plan: Secondary to decompensated heart failure versus undiagnosed obesity hypoventilation syndrome Maintained on BiPAP. Increased BiPAP parameters to IPAP EPAP of 18/10 giving persistent hypercapnia this morning Repeat ABG on this new settings shows significant improvement (2) Acute on chronic diastolic (congestive) heart failure Is this a current diagnosis for this admission?: Yes Plan: Chest x-ray showing cardiomegaly with some pulmonary edema and BNP is elevated to 2900 which is increased from baseline on last admission Diuresis with Bumex 2 mg IV twice daily [home dose of Bumex 2 mg p.o. daily] Dr. Grace following. Diamox added. Recommendations appreciated. Strict I's and O's, 1500 cc fluid restriction, Weigh daily and continue Coreg, lisinopril and Imdur. Echo pending (3) Obesity hypoventilation syndrome Is this a current diagnosis for this admission?: Yes Plan: Recently do believe that patient has undiagnosed obesity hypoventilation syndrome on top of his NATASHA causing him to have hypercapnic respiratory failure. Will maintain on nocturnal BiPAP and try to qualify patient for nocturnal BiPAP at home. (4) Diabetes mellitus type 2 in obese Is this a current diagnosis for this admission?: Yes Plan: Sliding scale insulin, continue metformin, ADA diet Accuchecks (5) Coronary artery disease Qualifiers: Coronary Disease-Associated Artery/Lesion type: [place] artery [place] vs. transplanted heart: [place] heart Associated angina: without angina Qualified Code(s): I25.10 - Atherosclerotic heart disease of [place] coronary artery without angina pectoris Is this a current diagnosis for this admission?: Yes Plan: Scheduled for outpatient stress test with Dr. Gomez (6) Chronic renal failure, stage 3 (moderate) Is this a current diagnosis for this admission?: Yes Plan: Creatinine at baseline. We will continue to monitor via BMP. - Time Time Spent with patient: 15-24 minutes
[2019-05-08] MEDS: FLUTICASONE NASAL SPRAY 50 MCG/SPRY 120 SPRAY/16 GM NASL SCH ×2 (13:36→22:37)
--- NOTE | 2019-05-08 15:25 | Progress Note ---
Provider Note Provider Note: CARDIOLOGY PROGRESS NOTE by Dr. Mel Gomez on 05/08/2019. OBJECTIVE: The patient still has somnolescent's. He has failed the BiPAP with the the need to increase the FiO2 to 60% from 35%. He denies any chest pain or discomfort. At rest he has no shortness of breath. He has chronic orthopnea. There is no PND. There is no recurrence of atrial fibrillation. There is no ventricular arrhythmia seen on the monitor. In view of the failure with the BiPAP will consult pulmonology to see if the patient will benefit from AVAP. Physical EXAMINATION the patient is morbidly obese. In no acute distress at rest. Selected Entries 05/08/19 11:51 Temperature 97.8 F Temperature Oral Source Pulse Rate 75 Respiratory 24 H Rate Blood Pressure 108/57 L Blood Pressure 74 Mean BP Location Right Arm BP Position Sitting O2 Sat by Pulse 100 Oximetry Oxygen Delivery Bipap Method Percent of 60 Oxygen HEAD: Is atraumatic. Normocephalic. EYES: Pupils are equal round regular reactive light accommodation. Extraocular movements are normal. ENT is negative. Neck is supple. There is no JVD. Carotids are equal there is no bruit. There is no lymphadenopathy. There is no goiter. There is no accessory muscle respiration use. Trachea central. LUNGS: Some breath sounds in the bases, the rest of the lungs are clear to auscultation percussion. There is no chest wall tenderness. There is norhonchi rales or wheezing. HEART: S1-S2 is heard S1 is of variable intensity. There is faint murmur of aortic regurgitation. Present. There is systolic murmur left sternal border and the apex. There is no rub. There is no S3 gallop there is no S4 gallop. ABDOMEN: Is obese nontender there is no paraspinal megaly. Bowel sounds are well heard. EXTREMITIES: Femorals are deep. Femorals are diminished. There is no femoral bruits. Leg pulses are faint. There is 2+ chronic edema with the leg being bandaged. There is no cyanosis or clubbing. ASSISTANT PURCHASING MANAGER: The patient is conscious awake alert oriented x3 with no focal deficit at present he does not appear to be somnolent. PSYCHIATRIC: The patient judgment insight are intact his affect is normal. Labs- All tests 24 hr 05/08/19 05/08/1919 04:34 04:34 06:33 WBC 7.4 RBC 3.94 L Hgb 11.4 L Hct 34.6 L MCV 88 MCH 29.0 MCHC 33.0 RDW 18.4 H Plt Count 174 Lymph % (Auto) 15.3 Crane % (Auto) 6.3 Eos % (Auto) 3.4 Baso % (Auto) 0.9 Absolute Neuts (auto) 5.5 Absolute Lymphs (auto) 1.1 Absolute Monos (auto) 0.5 Absolute Eos (auto) 0.3 Absolute Basos (auto) 0.1 Seg Neutrophils % 74.1 Carbonic Acid HCO3/H2CO3 Ratio ABG pH ABG pCO2 ABG pO2 ABG HCO3 ABG Total CO2 ABG O2 Saturation ABG Base Excess VBG pH 7.28 L VBG pCO2 72.6 H* VBG HCO3 33.4 H VBG Base Excess 4.6 FiO2 Sodium 145.3 H Potassium 3.9 Chloride 103 Carbon Dioxide 33 H Anion Gap 9 BUN 32 H Creatinine 1.48 H Est GFR ( Amer) 56 L Est GFR (MDRD) Non-Af 46 L Glucose 126 H POC Glucose Calcium 9.1 Magnesium 1.7 Lactate Dehydrogenase 05/08/19 05/08/19 05/08/19 07:39 11:05 12:15 WBC RBC Hgb Hct MCV MCH MCHC RDW Plt Count Lymph % (Auto) Crane % (Auto) Eos % (Auto) Baso % (Auto) Absolute Neuts (auto) Absolute Lymphs (auto) Absolute Monos (auto) Absolute Eos (auto) Absolute Basos (auto) Seg Neutrophils % Carbonic Acid 1.75 H HCO3/H2CO3 Ratio 18:1 ABG pH 7.37 ABG pCO2 58.0 H ABG pO2 83.7 ABG HCO3 32.7 H ABG Total CO2 34.5 H ABG O2 Saturation 95.8 ABG Base Excess 6.0 VBG pH VBG pCO2 VBG HCO3 VBG Base Excess FiO2 65% Sodium Potassium Chloride Carbon Dioxide Anion Gap BUN Creatinine Est GFR ( Amer) Est GFR (MDRD) Non-Af Glucose POC Glucose 122 H 181 H Calcium Magnesium Lactate Dehydrogenase 05/08/19 05/08/19 05/08/19 16:01 16:42 16:56 WBC RBC Hgb Hct MCV MCH MCHC RDW Plt Count Lymph % (Auto) Crane % (Auto) Eos % (Auto) Baso % (Auto) Absolute Neuts (auto) Absolute Lymphs (auto) Absolute Monos (auto) Absolute Eos (auto) Absolute Basos (auto) Seg Neutrophils % Carbonic Acid HCO3/H2CO3 Ratio ABG pH ABG pCO2 ABG pO2 ABG HCO3 ABG Total CO2 ABG O2 Saturation ABG Base Excess VBG pH VBG pCO2 VBG HCO3 VBG Base Excess FiO2 Sodium Potassium Chloride Carbon Dioxide Anion Gap BUN Creatinine Est GFR ( Amer) Est GFR (MDRD) Non-Af Glucose POC Glucose 132 H 147 H Calcium Magnesium Lactate Dehydrogenase 168 05/08/19 05/08/19 17:30 21:18 WBC RBC Hgb Hct MCV MCH MCHC RDW Plt Count Lymph % (Auto) Crane % (Auto) Eos % (Auto) Baso % (Auto) Absolute Neuts (auto) Absolute Lymphs (auto) Absolute Monos (auto) Absolute Eos (auto) Absolute Basos (auto) Seg Neutrophils % Carbonic Acid 1.70 H HCO3/H2CO3 Ratio 19:1 ABG pH 7.38 ABG pCO2 56.6 H ABG pO2 78.6 L ABG HCO3 32.4 H ABG Total CO2 34.2 H ABG O2 Saturation 95.1 ABG Base Excess 6.0 VBG pH VBG pCO2 VBG HCO3 VBG Base Excess FiO2 40% Sodium Potassium Chloride Carbon Dioxide Anion Gap BUN Creatinine Est GFR ( Amer) Est GFR (MDRD) Non-Af Glucose POC Glucose 131 H Calcium Magnesium Lactate Dehydrogenase Chest X-Ray 05/07/19 11:28 IMPRESSION: Chronic cardiomegaly. Cannot exclude mild pulmonary edema. Small pleural effusions. IMPRESSION/RECOMMENDATION: 1. Acute on chronic hypercapnic respiratory failure. Suspect this is secondary to sleep apnea which I think is a mixture of obstructive sleep apnea and central sleep apnea 2. Congestive heart failure: Most likely biventricular failure. Continue current treatment. 3. 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 Continue patient's CPAP. We will get nocturnal oximetry to see if the CPAP is working. Also this will see if there are any hypoxic episodes due to central sleep apnea. In view of this we will cautiously add some Diamox., And also Obdulio-Dur will be started. 4. Coronary artery disease: History of coronary bypass graft surgery: Stable with no anginal symptoms. Will order EKG in the morning. 5. Chronic atrial fibrillation: Continue current medication and Eliquis. 6. Aortic regurgitation: Mild. 7. Hypertension: Blood pressure well controlled. 8. Diabetes mellitus: Continue antidiabetic medication and Accu-Cheks as per protocol. 9. Hypothyroidism: Continue thyroid replacement. 10. Bilateral pleural effusions: Continue diuretics. 11. Morbid obesity recommend nutritional consult. Medications reviewed. Medical regimen and management plan discussed with the attending physician. Discussed the case with the keno writer / runner. Medical decision making is of high complexity. 40 minutes spent on this patient more than 50% time spent in direct patient care. Will follow
--- NOTE | 2019-05-08 16:22 | PDOC CONSULTATION ---
Consultation Consult Date: 05/08/19 Attending physician:: BETTY PALACIOS Provider Consulted: JAI FONG Consult reason:: hypoxic/hypercapnic resp failure History of Present Illness Admission Date/PCP: 05/07/19 14:[facility] History of Present Illness: GRACE LEONE is a 74 year old male with multiple medical problems presented with increasing shortness of breath he was discharged in February 2019 with congestive heart failure in July 2016 he had echocardiogram that was described as left ventricular function was low normal. Wears oxygen at home and admits to some shortness of breath as well as dyspnea on exertion has occasional cough and in the past he had some hemoptysis but his PPD is negative although the date is unknown no history of chronic lung disease as a child or adolescent. He states that he has not been exposed to passive smoke as a child or as an adult. 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 He has 1 dog no recent travel he denies angina-like chest pain sleeps in a hospital bed would approximately 30 degrees elevated rare PND occasional nocturnal cough chronic edema he carries a diagnosis of obstructive sleep apnea which he has had since 1991 unable to document CPAP settings at home. Past Medical History Cardiac Medical History: Reports: Atrial Fibrillation, Congestive Heart Failure, Coronary Artery Disease, Hypertension Denies: Myocardial Infarction Pulmonary Medical History: Reports: Pneumonia, Sleep Apnea Denies: Asthma, Bronchitis, Chronic Obstructive Pulmonary Disease (COPD) EENT Medical History: Reports: Other - Right detached retina Neurological Medical History: Denies: Multiple Sclerosis, Seizures Endocrine Medical History: Reports: Diabetes Mellitus Type 2, Hypothyroidism Malignancy Medical History: Reports: Breast Cancer GI Medical History: Reports: Gastroesophageal Reflux Disease Denies: Crohn's Disease, Ulcerative Colitis Musculoskeltal Medical History: Reports: Arthritis Skin Medical History: Denies: Eczema, Psoriasis Traumatic Medical History: Denies: Traumatic Brain Injury Hematology: Reports: Anemia Denies: Sickle Cell Disease Infectious Medical History: Denies: HIV Past Surgical History Past Surgical History: Reports: Coronary Artery Bypass Graft, Orthopedic Surgery, Other - Mastectomy for breast cancer, partial nephrectomy on the left Social History Information Source: Patient, [facility] Records Lives with: Family Smoking Status: Never Smoker Frequency of Alcohol Use: None Hx Recreational Drug Use: No Drugs: None Hx Prescription Drug Abuse: No Do you have pets?: Yes Have you had any respiratory illnesses as a child?: No Have you been exposed to any sick contacts recently?: No Have you had any recent respiratory illnesses?: No Have you travelled outside of [place] in the past 12 months?: No - Advance Directive Resuscitation Status: Full Code Family History Family History: CAD, Malignancy - Breast cancer and uterine cancer and bone cancer Parental Family History Reviewed: Yes Children Family History Reviewed: Yes Sibling(s) Family History Reviewed.: Yes Medication/Allergy Home Medications: Allopurinol [Zyloprim 100 mg Tablet] 100 mg PO DAILY 02/20/19 Apixaban [Eliquis 5 mg Tablet] 5 mg PO Q12 02/20/19 Atorvastatin Calcium [Lipitor 80 mg Tablet] 40 mg PO QHS 02/20/19 Bumetanide [Bumex 1 mg Tablet] 2 mg PO DAILY 02/20/19 Carvedilol [Coreg 25 mg Tablet] 25 mg PO Q12 02/20/19 Docusate Sodium [Colace 100 mg Capsule] 100 mg PO BID 02/20/19 Isosorbide Mononitrate [Imdur 30 mg Tablet.er] 90 mg PO DAILY 02/20/19 Levothyroxine Sodium [Synthroid 0.025 mg Tablet] 0.025 mg PO MOWEFR@06 02/20/19 Liraglutide [Victoza 2-Dewayne] 1.8 mg SQ DAILY 02/20/19 Lisinopril [Prinivil] 10 mg PO DAILY 02/20/19 Loratadine [Claritin 10 mg Tablet] 10 mg PO DAILY 02/20/19 Magnesium Oxide [Mag-Ox 400 mg Tablet] 400 mg PO DAILY 02/20/19 Metformin HCl [Glucophage 500 mg Tablet] 1,000 mg PO BID 02/20/19 Potassium Chloride [Klor-Con M10] 20 meq PO BID 02/20/19 Ranitidine HCl [Heartburn Relief 150] 150 mg PO BID 02/20/19 Tamsulosin HCl [Flomax 0.4 mg Cap.sr] 0.4 mg PO DAILY 02/20/19 Clindamycin Phosphate 1 applic TP DAILY 05/07/19 Insulin Glargine,Hum.rec.anlog [Lantus Insulin 100 Unit/mL Insulin Pen] 25 unit SUBCUT QHS 05/07/19 Nitroglycerin [Nitrostat 0.4 mg (1/150 Gr) Tabs 25/Bottle] 0.4 mg SL Q5MP PRN 05/07/19 Allergies/Adverse Reactions: spironolactone Allergy (Verified 02/20/19 11:48) Review of Systems All systems: reviewed and no additional remarkable complaints except as stated Physical Exam Vital Signs: Temp Pulse Resp BP Pulse Ox 97.7 F 78 20 154/68 H 96 05/08/19 07:57 05/08/19 14:00 05/08/19 14:18 05/08/19 07:57 05/08/19 14:18 Intake & Output 05/07/19 05/08/19 05/09/19 06:59 06:59 06:59 Intake Total 480 736 Output Total 900 600 Balance -420 136 Weight 150.3 kg 150.3 kg General appearance: PRESENT: no acute distress, cooperative, disheveled, morbidly obese, well-developed, well-nourished Head exam: PRESENT: atraumatic, normocephalic Eye exam: PRESENT: conjunctiva pale, EOMI. ABSENT: nystagmus, periorbital swelling, scleral icterus Mouth exam: PRESENT: dry mucosa, neck supple, tongue midline Neck exam: ABSENT: carotid bruit, full ROM, JVD, lymphadenopathy, meningismus, tenderness, thyromegaly, tracheal deviation, tracheostomy, other Respiratory exam: PRESENT: decreased breath sounds, prolonged expiratory phas, rhonchi, tachypnea, unlabored, wheezes. ABSENT: retraction, stridor Cardiovascular exam: PRESENT: irregular rhythm, +S1, +S2. ABSENT: tachycardia Pulses: PRESENT: normal radial pulses GI/Abdominal exam: PRESENT: soft. ABSENT: distended, guarding, mass, rebound, tenderness Extremities exam: PRESENT: +1 edema. ABSENT: calf tenderness, clubbing, joint swelling, tenderness Musculoskeletal exam: ABSENT: deformity, dislocation Neurological exam: PRESENT: alert, awake Psychiatric exam: PRESENT: appropriate affect Skin exam: PRESENT: dry, warm Results Laboratory Results: 05/08/19 04:34 05/08/19 04:34 05/07/19 05/08/19 05/08/19 15:35 04:34 04:34 WBC 7.4 RBC 3.94 L Hgb 11.4 L Hct 34.6 L MCV 88 MCH 29.0 MCHC 33.0 RDW 18.4 H Plt Count 174 Seg Neutrophils % 74.1 Carbonic Acid 1.97 H HCO3/H2CO3 Ratio 16:1 ABG pH 7.32 L ABG pCO2 65.3 H ABG pO2 42.6 L ABG HCO3 32.5 H ABG O2 Saturation 72.6 L ABG Base Excess 4.1 VBG pH VBG pCO2 VBG HCO3 VBG Base Excess FiO2 40% Sodium 145.3 H Potassium 3.9 Chloride 103 Carbon Dioxide 33 H Anion Gap 9 BUN 32 H Creatinine 1.48 H Est GFR ( Amer) 56 L Glucose 126 H Calcium 9.1 Magnesium 1.7 05/08/19 05/08/19 06:33 11:05 WBC RBC Hgb Hct MCV MCH MCHC RDW Plt Count Seg Neutrophils % Carbonic Acid 1.75 H HCO3/H2CO3 Ratio 18:1 ABG pH 7.37 ABG pCO2 58.0 H ABG pO2 83.7 ABG HCO3 32.7 H ABG O2 Saturation 95.8 ABG Base Excess 6.0 VBG pH 7.28 L VBG pCO2 72.6 H* VBG HCO3 33.4 H VBG Base Excess 4.6 FiO2 65% Sodium Potassium Chloride Carbon Dioxide Anion Gap BUN Creatinine Est GFR ( Amer) Glucose Calcium Magnesium 05/07/19 05/07/19 12:00 15:35 Troponin I < 0.012 < 0.012 NT-Pro-B Natriuret Pep 2960 H Impressions: Chest X-Ray 05/07/19 11:28 IMPRESSION: Chronic cardiomegaly. Cannot exclude mild pulmonary edema. Small pleural effusions. Assessment & Plan - Diagnosis (1) Acute hypoxemic respiratory failure Is this a current diagnosis for this admission?: Yes Plan: With oxygen at home CPAP . chronic hypoxic or hypercapnic respiratory failure is acute as pH is preserved 7.37; only VBG's were displayed any acidosis (2) Morbid obesity Is this a current diagnosis for this admission?: Yes Plan: Consider nutritional consult (3) Obesity hypoventilation syndrome Is this a current diagnosis for this admission?: Yes Plan: The CO2 is above 72 demonstrated failure of BiPAP patient should be eligible for trilogy home vent The above patient has failed BiPAP with a patent airway. This patient would benefit from noninvasive mechanical ventilation via the trilogy AVAPS/AE and fas ter responding AVAPS rates. The trilogy is able to provide a target tidal volume and also adjusting the EPAP pressures to maintain a patent airway as well as an oral backup rate this machine will help improve PaCO2 levels. The severity of the patient's condition will lead to future hospitalizations and readmissions as well as life-threatening situations without the use of this device day and night. Trilogy home vent needed for hypercapnic respiratory failure. [facility] or [facility] to follow for trilogy set up. (4) Obstructive sleep apnea Is this a current diagnosis for this admission?: Yes Plan: Noninvasive positive pressure ventilation (5) Pleural effusion Is this a current diagnosis for this admission?: Yes Plan: Bilateral right leg greater than left we will proceed with a right thoracentesis - Time Time Spent: Greater than 70 Minutes
[2019-05-08 17:52] LABS: ARTERIAL BLOOD HCO3 32.4 mmol/L (20-24); ARTERIAL BLOOD O2 SATURATION 95.1 % (94-98); ARTERIAL BLOOD PCO2 56.6 mmHg (35-45); ARTERIAL BLOOD PH 7.38 (7.35-7.45); ARTERIAL BLOOD PO2 78.6 mmHg (80-100); ARTERIAL BLOOD TOTAL CO2 34.2 mmol/L (23-27)
[2019-05-08 17:56] LABS: ARTERIAL BLOOD FIO2 40%
[2019-05-08] MEDS: ATORVASTATIN CALCIUM 40 MG TABLET PO SCH (22:36)
[2019-05-09 05:31] LABS: ABSOLUTE BASOPHILS # (AUTO) 0.1 10^3/uL (0.0-0.2); ABSOLUTE EOSINOPHILS # (AUTO) 0.2 10^3/uL (0.0-0.6); ABSOLUTE LYMPHOCYTES (AUTO) 1.3 10^3/uL (0.5-4.7); ABSOLUTE MONOCYTES (AUTO) 0.4 10^3/uL (0.1-1.4); ABSOLUTE NEUT (AUTO) 4.4 10^3/uL (1.7-8.2); EOSINOPHILS % (AUTO) 3.6 % (0-6); HEMATOCRIT 34.7 % (37.9-51.0); HEMOGLOBIN 11.5 g/dL (13.5-17.0); MEAN CORPUSCULAR HEMOGLOBIN 28.9 pg (27.0-33.4); MEAN CORPUSCULAR HGB CONC 33.1 g/dL (32.0-36.0); MEAN CORPUSCULAR VOLUME 87 fl (80-97); MONOCYTES % (AUTO) 6.5 % (3-13); PLATELET COUNT 175 10^3/uL (150-450); RED BLOOD COUNT 3.97 10^6/uL (4.35-5.55); RED CELL DISTRIBUTION WIDTH 18.6 % (11.5-14.0); SEGMENTED NEUTROPHILS % (AUTO) 68.9 % (42-78); TOTAL CELLS COUNTED % (AUTO) 100 %; WHITE BLOOD COUNT 6.4 10^3/uL (4.0-10.5)
[2019-05-09 05:42] LABS: ANION GAP 12 (5-19); BLOOD UREA NITROGEN 35 mg/dL (7-20); CALCIUM 9.4 mg/dL (8.4-10.2); CARBON DIOXIDE 32 mmol/L (22-30); CHLORIDE 100 mmol/L (98-107); GLUCOSE 121 mg/dL (75-110); POTASSIUM 3.7 mmol/L (3.6-5.0)
[2019-05-09] MEDS: LEVOTHYROXINE SODIUM 0.025 MG TABLET PO SCH (06:10)
[2019-05-09 06:20] LABS: ARTERIAL BLOOD BASE EXCESS 3.9 mmol/L; ARTERIAL BLOOD H2CO3 1.67 mmol/L (1.05-1.35); ARTERIAL BLOOD HCO3 30.4 mmol/L (20-24); ARTERIAL BLOOD O2 SATURATION 95.4 % (94-98); ARTERIAL BLOOD PCO2 55.4 mmHg (35-45); ARTERIAL BLOOD PH 7.36 (7.35-7.45); ARTERIAL BLOOD PO2 81.4 mmHg (80-100); ARTERIAL BLOOD TOTAL CO2 32.1 mmol/L (23-27)
[2019-05-09 06:25] LABS: ARTERIAL BLOOD FIO2 40%
[2019-05-09] MEDS: METFORMIN HCL 500 MG TABLET PO SCH ×2 (08:06→16:54)
[2019-05-09] MEDS: INSULIN LISPRO 100 UNIT/ML 3 ML VIAL SUBCUT SCH ×4 (08:08→23:06)
[2019-05-09] MEDS: ISOSORBIDE MONONITRATE 30 MG TAB.ER.24H PO SCH (10:08)
[2019-05-09] MEDS: CARVEDILOL 12.5 MG TABLET PO SCH ×2 (10:08→21:54)
[2019-05-09] MEDS: TAMSULOSIN HCL 0.4 MG CAP.SR.24H PO SCH (10:08)
[2019-05-09] MEDS: ALLOPURINOL 100 MG TABLET PO SCH (10:08)
[2019-05-09] MEDS: POTASSIUM CHLORIDE 10 MEQ TABLET.ER PO SCH (10:08)
[2019-05-09] MEDS: MAGNESIUM OXIDE 400 MG TABLET PO SCH (10:08)
[2019-05-09] MEDS: LISINOPRIL 10 MG TABLET PO SCH ×2 (10:08→21:54)
[2019-05-09] MEDS: BUMETANIDE INJ/PF 1 MG/4 ML SDV IV SCH ×2 (10:09→18:31)
[2019-05-09] MEDS: FAMOTIDINE 20 MG TABLET PO SCH ×2 (10:09→21:54)
[2019-05-09] MEDS: DOCUSATE SODIUM 100 MG CAPSULE PO SCH (10:09)
[2019-05-09] MEDS: FLUTICASONE NASAL SPRAY 50 MCG/SPRY 120 SPRAY/16 GM NASL SCH ×2 (10:09→21:54)
[2019-05-09] MEDS: THEOPHYLLINE ANHYDROUS 100 MG TAB.SR.12H PO SCH ×2 (10:09→21:54)
--- NOTE | 2019-05-09 13:39 | PDOC PROGRESS REPORT ---
Subjective Progress Note for:: 05/09/19 Subjective:: Patient states that his breathing is getting better. Was able to sleep with the BiPAP yesterday night through the night without difficulty. Denies any current chest pain. Reason For Visit: HYPERCAPNIC RESP FAILURE, HEART FAILURE Physical Exam Vital Signs: Temp Pulse Resp BP Pulse Ox 97.7 F 74 18 123/66 100 05/09/19 11:35 05/09/19 11:35 05/09/19 11:35 05/09/19 11:35 05/09/19 11:35 Intake & Output 05/08/19 05/09/19 05/10/19 06:59 06:59 06:59 Intake Total 480 1681 444 Output Total 900 1890 350 Balance -420 -209 94 Weight 150.3 kg 149.4 kg General appearance: PRESENT: no acute distress, cooperative Neck exam: ABSENT: JVD Respiratory exam: PRESENT: symmetrical, unlabored. ABSENT: rales, rhonchi, tachypnea, wheezes Cardiovascular exam: PRESENT: RRR, +S1, +S2. ABSENT: tachycardia GI/Abdominal exam: PRESENT: normal bowel sounds, soft. ABSENT: rigid, tenderness Neurological exam: PRESENT: alert, awake, oriented to person, oriented to place, oriented to time Results Laboratory Results: 05/09/19 04:29 05/09/19 04:29 05/08/19 05/09/19 05/09/19 17:30 04:29 04:29 WBC 6.4 RBC 3.97 L Hgb 11.5 L Hct 34.7 L MCV 87 MCH 28.9 MCHC 33.1 RDW 18.6 H Plt Count 175 Seg Neutrophils % 68.9 Carbonic Acid 1.70 H HCO3/H2CO3 Ratio 19:1 ABG pH 7.38 ABG pCO2 56.6 H ABG pO2 78.6 L ABG HCO3 32.4 H ABG O2 Saturation 95.1 ABG Base Excess 6.0 FiO2 40% Sodium 143.9 Potassium 3.7 Chloride 100 Carbon Dioxide 32 H Anion Gap 12 BUN 35 H Creatinine 1.53 H Est GFR ( Amer) 54 L Glucose 121 H Calcium 9.4 05/09/19 06:04 WBC RBC Hgb Hct MCV MCH MCHC RDW Plt Count Seg Neutrophils % Carbonic Acid 1.67 H HCO3/H2CO3 Ratio 18:1 ABG pH 7.36 ABG pCO2 55.4 H ABG pO2 81.4 ABG HCO3 30.4 H ABG O2 Saturation 95.4 ABG Base Excess 3.9 FiO2 40% Sodium Potassium Chloride Carbon Dioxide Anion Gap BUN Creatinine Est GFR ( Amer) Glucose Calcium 05/07/19 05/07/19 12:00 15:35 Troponin I < 0.012 < 0.012 NT-Pro-B Natriuret Pep 2960 H Impressions: Chest X-Ray 05/07/19 11:28 IMPRESSION: Chronic cardiomegaly. Cannot exclude mild pulmonary edema. Small pleural effusions. Assessment and Plan - Diagnosis (1) Acute hypercapnic respiratory failure Is this a current diagnosis for this admission?: Yes Plan: Likely complement of OHS or CHF continue BiPAP while inpatient. Settings adjusted by component engineer. Dr. Powers will try to qualify patient for trilogy to be used upon discharge. (2) Acute on chronic diastolic (congestive) heart failure Is this a current diagnosis for this admission?: Yes Plan: Chest x-ray showing cardiomegaly with some pulmonary edema and BNP is elevated to 2900 which is increased from baseline on last admission Diuresis with Bumex 2 mg IV twice daily. Extra dose given today. [home dose of Bumex 2 mg p.o. daily] Dr. Lesly collier. Diamox added. Recommendations appreciated. Strict I's and O's, 1500 cc fluid restriction, Weigh daily and continue Coreg, lisinopril and Imdur. Final echo results pending (3) Obesity hypoventilation syndrome Is this a current diagnosis for this admission?: Yes Plan: Nocturnal BiPAP while inpatient. Try to qualify patient for trilogy when discharged. Will follow with Dr. Powers (4) Pleural effusion Is this a current diagnosis for this admission?: Yes Plan: Noted on chest x-ray. Right greater than left. Right-sided thoracentesis recommended by pulmonology. I will place orders for fluid analysis. (5) Diabetes mellitus type 2 in obese Is this a current diagnosis for this admission?: Yes Plan: Sliding scale insulin, continue metformin, ADA diet Accuchecks (6) Coronary artery disease Qualifiers: Coronary Disease-Associated Artery/Lesion type: [place] artery [place] vs. transplanted heart: [place] heart Associated angina: without angina Qualified Code(s): I25.10 - Atherosclerotic heart disease of [place] coronary artery without angina pectoris Is this a current diagnosis for this admission?: Yes Plan: Scheduled for outpatient stress test with Dr. Gomez (7) Chronic renal failure, stage 3 (moderate) Is this a current diagnosis for this admission?: Yes Plan: Creatinine at baseline. We will continue to monitor via BMP. - Time Time Spent with patient: 15-24 minutes
[2019-05-09] MEDS ORDERED: BUMETANIDE INJ/PF 1 MG/4 ML SDV IV ONE (15:00)
--- NOTE | 2019-05-09 15:21 | XCELERA REPORT ---
[address] [address] Transthoracic Echocardiogram Report Name: GRACE LEONE Age: 74 yrs Gender: Male : 1945 Patient Status: Inpatient Patient Location: [address] [place], [place] [id number] Study Date: 05/08/2019 04:28 PM Height: 70 in Weight: 320 lb BSA: 2.5 m2 Procedure: A two-dimensional transthoracic echocardiogram with color flow and Doppler was performed. The study was technically difficult with many images being suboptimal in quality. Reason For Study: chf History: CHF. Ordering Physician: BETTY PALACIOS Performed By: Kathy Dior Interpretation Summary The left ventricle is normal in size. There is mild concentric left ventricular hypertrophy. LV EF is 40% to 45%.% Left ventricular systolic function is moderately reduced. There is moderate global hypokinesis of the left ventricle. Septal motion is consistent with post-operative state There is no thrombus. Cannot accurately assess presence of ASD ,VSD,or PFO The right ventricle is mild to moderately dilated. The right ventricular systolic function is normal. The right atrium is mildly dilated. The left atrium is moderately dilated. There is no evidence of mitral valve prolapse. There is no mitral valve stenosis. There is no mitral regurgitation noted. There is no aortic valvular vegetation. There is aortic sclerosis without aortic stenosis. There is no LVOT obstruction. No aortic regurgitation is present. There is no tricuspid stenosis. There is a mild amount of tricuspid regurgitation There is moderate pulmonary hypertension by echo RVSP is 51 to 56 mm of Hg , with RA mean of 10 to 15. There is no pulmonic valvular stenosis. There is a trace amount of pulmonic regurgitation The aortic root is normal size. The inferior vena cava appeared normal and decreased < 50% with respiration (RAP 10-15 mmHg) There is no pericardial effusion. MMode/2D Measurements & Calculations RVDd: 4.0 cm LVIDd: 6.1 cm FS: 21.0 % Ao root diam: 2.7 cm IVSd: 1.3 cm LVIDs: 4.8 cm EDV(Teich): 188.7 ml Ao root area: 5.6 cm2 LVPWd: 1.3 cm ESV(Teich): 109.7 ml LA dimension: 4.8 cm EF(Teich): 41.9 % Doppler Measurements & Calculations MV E max chance: MV P1/2t max chance: Ao V2 max: LV V1 max P.5 cm/sec 114.5 cm/sec 130.3 cm/sec 3.2 mmHg MV P1/2t: 48.1 msec Ao max PG: LV V1 max: MVA(P1/2t): 4.6 cm2 6.8 mmHg 89.3 cm/sec MV dec slope: 697.9 cm/sec2 MV dec time: 0.14 sec PA V2 max: PI end-d chance: TR max chance: MV P1/2t-pr_phl: 88.8 cm/sec 137.1 cm/sec 317.6 cm/sec 48.1 msec PA max P.2 mmHg TR max P.4 mmHg Left Ventricle The left ventricle is normal in size. There is mild concentric left ventricular hypertrophy. LV EF is 40% to 45%.%. Left ventricular systolic function is moderately reduced. LV diastolic function could not be adequately assessed due to atrial fibrilation. There is moderate global hypokinesis of the left ventricle. Septal motion is consistent with post-operative state. There is no thrombus. Cannot accurately assess presence of ASD ,VSD,or PFO. Right Ventricle The right ventricle is mild to moderately dilated. The right ventricle is not well visualized secondary to technical limitations. The right ventricular systolic function is normal. Atria The right atrium is mildly dilated. The left atrium is moderately dilated. Mitral Valve There is no evidence of mitral valve prolapse. There is no vegetation seen on the mitral valve. There is no mitral valve stenosis. There is no mitral regurgitation noted. Aortic Valve There is no aortic valvular vegetation. There is aortic sclerosis without aortic stenosis. There is no LVOT obstruction. No aortic regurgitation is present. Tricuspid Valve There is no tricuspid stenosis. There is a mild amount of tricuspid regurgitation. There is moderate pulmonary hypertension by echo. RVSP is 51 to 56 mm of Hg , with RA mean of 10 to 15. Pulmonic Valve There is no pulmonic valvular stenosis. There is a trace amount of pulmonic regurgitation. Great Vessels The aortic root is normal size. The inferior vena cava appeared normal and decreased < 50% with respiration (RAP 10-15 mmHg). Effusions There is no pericardial effusion. : BETTY PALACIOS Lakshmi
--- NOTE | 2019-05-09 18:21 | Progress Note ---
Provider Note Provider Note: CARDIOLOGY PROGRESS NOTE by Dr. Mel Gomez on 05/09/2019. OBJECTIVE: The patient has good diuresis with diuretics. He feels much better. He is off the BiPAP at present he is on nasal cannula. He denies any chest pain or discomfort. There is chronic orthopnea present.. There is no PND. The patient is atrial fibrillation controlled ventricular response. There is no bleeding on Eliquis. There is no TIA CVA symptoms. The patient denies any chest pain or discomfort. There is no shortness of breath at rest. He still has leg edema which is better. On examination the patient is morbidly obese. At present in no acute distress. Selected Entries 05/09/19 16:47 Temperature 97.4 F Temperature Oral Source Pulse Rate 76 Respiratory 20 Rate Blood Pressure 145/77 H Blood Pressure 99 Mean BP Location Right Arm BP Position Supine O2 Sat by Pulse 97 Oximetry Oxygen Flow 5.00 Rate Oxygen Delivery Nasal Cannula Method HEAD: Is atraumatic. Normocephalic. EYES: Pupils are equal round regular reactive light accommodation. Extraocular movements are normal. ENT is negative. Neck is supple. There is no JVD. Carotids are equal there is no bruit. There is no lymphadenopathy. There is no goiter. There is no accessory muscle respiration use. Trachea central. LUNGS: Some breath sounds in the bases, the rest of the lungs are clear to auscultation percussion. There is no chest wall tenderness. There is norhonchi rales or wheezing. HEART: S1-S2 is heard S1 is of variable intensity. There is faint murmur of aortic regurgitation. Present. There is systolic murmur left sternal border and the apex. There is no rub. There is no S3 gallop there is no S4 gallop. ABDOMEN: Is obese nontender there is no paraspinal megaly. Bowel sounds are well heard. EXTREMITIES: Femorals are deep. Femorals are diminished. There is no femoral bruits. Leg pulses are faint. There is 1+ chronic edema with the leg being bandaged. There is no cyanosis or clubbing. PROGRAM TRAINER: The patient is conscious awake alert oriented x3 with no focal deficit at present he does not appear to be somnolent. PSYCHIATRIC: The patient judgment insight are intact his affect is normal. Labs- All tests 24 hr 12/05/08/19 05/09/19 16:56 21:18 04:29 WBC 6.4 RBC 3.97 L Hgb 11.5 L Hct 34.7 L MCV 87 MCH 28.9 MCHC 33.1 RDW 18.6 H Plt Count 175 Lymph % (Auto) 20.0 [place] % (Auto) 6.5 Eos % (Auto) 3.6 Baso % (Auto) 1.0 Absolute Neuts (auto) 4.4 Absolute Lymphs (auto) 1.3 Absolute Monos (auto) 0.4 Absolute Eos (auto) 0.2 Absolute Basos (auto) 0.1 Seg Neutrophils % 68.9 Carbonic Acid HCO3/H2CO3 Ratio ABG pH ABG pCO2 ABG pO2 ABG HCO3 ABG Total CO2 ABG O2 Saturation ABG Base Excess FiO2 Sodium Potassium Chloride Carbon Dioxide Anion Gap BUN Creatinine Est GFR ( Amer) Est GFR (MDRD) Non-Af Glucose POC Glucose 131 H Calcium Lactate Dehydrogenase 168 05/09/19 05/09/19 05/09/19 04:29 06:04 07:50 WBC RBC Hgb Hct MCV MCH MCHC RDW Plt Count Lymph % (Auto) [place] % (Auto) Eos % (Auto) Baso % (Auto) Absolute Neuts (auto) Absolute Lymphs (auto) Absolute Monos (auto) Absolute Eos (auto) Absolute Basos (auto) Seg Neutrophils % Carbonic Acid 1.67 H HCO3/H2CO3 Ratio 18:1 ABG pH 7.36 ABG pCO2 55.4 H ABG pO2 81.4 ABG HCO3 30.4 H ABG Total CO2 32.1 H ABG O2 Saturation 95.4 ABG Base Excess 3.9 FiO2 40% Sodium 143.9 Potassium 3.7 Chloride 100 Carbon Dioxide 32 H Anion Gap 12 BUN 35 H Creatinine 1.53 H Est GFR ( Amer) 54 L Est GFR (MDRD) Non-Af 45 L Glucose 121 H POC Glucose 128 H Calcium 9.4 Lactate Dehydrogenase 05/09/19 05/09/19 11:32 16:43 WBC RBC Hgb Hct MCV MCH MCHC RDW Plt Count Lymph % (Auto) [place] % (Auto) Eos % (Auto) Baso % (Auto) Absolute Neuts (auto) Absolute Lymphs (auto) Absolute Monos (auto) Absolute Eos (auto) Absolute Basos (auto) Seg Neutrophils % Carbonic Acid HCO3/H2CO3 Ratio ABG pH ABG pCO2 ABG pO2 ABG HCO3 ABG Total CO2 ABG O2 Saturation ABG Base Excess FiO2 Sodium Potassium Chloride Carbon Dioxide Anion Gap BUN Creatinine Est GFR ( Amer) Est GFR (MDRD) Non-Af Glucose POC Glucose 179 H 152 H Calcium Lactate Dehydrogenase Chest X-Ray 05/07/19 11:28 IMPRESSION: Chronic cardiomegaly. Cannot exclude mild pulmonary edema. Small pleural effusions. The patient's 24-hour intake is 1681 mL. His 24-hour output is 1890 mL. The patient's echocardiogram shows that the patient's LV ejection fraction is moderately reduced at 40 to 45%. He has moderate pulmonary hypertension also. IMPRESSION/RECOMMENDATION: 1. Acute on chronic hypercapnic respiratory failure. Suspect this is secondary to sleep apnea which I think is a mixture of obstructive sleep apnea and central sleep apnea 2. Congestive heart failure: Most likely biventricular failure. Continue current treatment. Will check chest x-ray in a.m. 3. 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 Continue patient's CPAP. With AVAP setting. Also this will see if there are any hypoxic episodes due to central sleep apnea. In view of this we will cautiously add some Diamox., And also Obdluio-Dur will be started. 4. Coronary artery disease: History of coronary bypass graft surgery: Stable with no anginal symptoms. Will order EKG in the morning. 5. Chronic atrial fibrillation: Continue current medication and Eliquis. 6. Aortic regurgitation: Mild. 7. Hypertension: Blood pressure well controlled. 8. Diabetes mellitus: Continue antidiabetic medication and Accu-Cheks as per protocol. 9. Hypothyroidism: Continue thyroid replacement. 10. Bilateral pleural effusions: Continue diuretics. 11. Morbid obesity recommend nutritional consult. Medications reviewed. Medical regimen and management plan discussed with attending physician on the case. Discussed with the truck driver supervisor also. Medical decision making is of moderate complexity. 40 minutes spent with patient more than 50% of time spent direct patient care. Will follow
[2019-05-09] MEDS: ATORVASTATIN CALCIUM 40 MG TABLET PO SCH (21:54)
[2019-05-10 05:23] LABS: ABSOLUTE EOSINOPHILS # (AUTO) 0.2 10^3/uL (0.0-0.6); ABSOLUTE LYMPHOCYTES (AUTO) 1.1 10^3/uL (0.5-4.7); ABSOLUTE MONOCYTES (AUTO) 0.5 10^3/uL (0.1-1.4); ABSOLUTE NEUT (AUTO) 4.6 10^3/uL (1.7-8.2); BASOPHILS % (AUTO) 0.7 % (0-2); EOSINOPHILS % (AUTO) 3.3 % (0-6); HEMATOCRIT 33.3 % (37.9-51.0); HEMOGLOBIN 11.1 g/dL (13.5-17.0); MEAN CORPUSCULAR HEMOGLOBIN 28.9 pg (27.0-33.4); MEAN CORPUSCULAR HGB CONC 33.4 g/dL (32.0-36.0); MEAN CORPUSCULAR VOLUME 87 fl (80-97); MONOCYTES % (AUTO) 8.2 % (3-13); PLATELET COUNT 165 10^3/uL (150-450); RED BLOOD COUNT 3.84 10^6/uL (4.35-5.55); RED CELL DISTRIBUTION WIDTH 18.2 % (11.5-14.0); SEGMENTED NEUTROPHILS % (AUTO) 70.8 % (42-78); TOTAL CELLS COUNTED % (AUTO) 100 %; WHITE BLOOD COUNT 6.5 10^3/uL (4.0-10.5)
[2019-05-10] MEDS: LEVOTHYROXINE SODIUM 0.025 MG TABLET PO SCH (05:27)
[2019-05-10 05:28] LABS: INTERNATIONAL RATION (INR) 1.37; PROTHROMBIN TIME 16.9 SEC (11.4-15.4)
[2019-05-10 05:29] LABS: PARTIAL THROMBOPLASTIN TIME 33.4 SEC (23.5-35.8)
[2019-05-10 05:55] LABS: ANION GAP 9 (5-19); BLOOD UREA NITROGEN 36 mg/dL (7-20); CALCIUM 8.8 mg/dL (8.4-10.2); CARBON DIOXIDE 32 mmol/L (22-30); CHLORIDE 101 mmol/L (98-107); GLUCOSE 140 mg/dL (75-110); POTASSIUM 3.4 mmol/L (3.6-5.0)
--- NOTE | 2019-05-10 08:57 | RADIOLOGY REPORT (SQ) ---
EXAM DESCRIPTION: CHEST SINGLE VIEW COMPLETED DATE/TIME: 05/10/2019 8:29 am REASON FOR STUDY: CHF COMPARISON: 05/07/2019 NUMBER OF VIEWS: One view. TECHNIQUE: Single frontal radiographic view of the chest acquired. LIMITATIONS: None. FINDINGS: LUNGS AND PLEURA: Improved aeration. Residual small effusions. MEDIASTINUM AND HILAR STRUCTURES: Stable. HEART AND VASCULATURE: Cardiac enlargement. Vascular congestion. BONES: No acute findings. HARDWARE: CABG. OTHER: No other significant finding. IMPRESSION: Improving CHF. TECHNICAL DOCUMENTATION: JOB ID: [id number] [employer]- All Rights Reserved Reading location - IP/workstation name: [email or web address]
[2019-05-10] MEDS: INSULIN LISPRO 100 UNIT/ML 3 ML VIAL SUBCUT SCH ×4 (09:19→22:57)
[2019-05-10] MEDS: METFORMIN HCL 500 MG TABLET PO SCH ×2 (09:19→16:45)
[2019-05-10] MEDS: BUMETANIDE INJ/PF 1 MG/4 ML SDV IV SCH (09:29)
[2019-05-10] MEDS: LISINOPRIL 10 MG TABLET PO SCH ×2 (09:29→22:58)
[2019-05-10] MEDS: MAGNESIUM OXIDE 400 MG TABLET PO SCH (09:29)
[2019-05-10] MEDS: THEOPHYLLINE ANHYDROUS 100 MG TAB.SR.12H PO SCH ×2 (09:29→22:58)
[2019-05-10] MEDS: CARVEDILOL 12.5 MG TABLET PO SCH ×2 (09:30→22:59)
[2019-05-10] MEDS: FAMOTIDINE 20 MG TABLET PO SCH ×2 (09:30→22:56)
[2019-05-10] MEDS: ISOSORBIDE MONONITRATE 30 MG TAB.ER.24H PO SCH (09:30)
[2019-05-10] MEDS: TAMSULOSIN HCL 0.4 MG CAP.SR.24H PO SCH (09:30)
[2019-05-10] MEDS: DOCUSATE SODIUM 100 MG CAPSULE PO SCH (09:30)
[2019-05-10] MEDS: FLUTICASONE NASAL SPRAY 50 MCG/SPRY 120 SPRAY/16 GM NASL SCH ×2 (09:31→22:56)
[2019-05-10] MEDS: POTASSIUM CHLORIDE 10 MEQ TABLET.ER PO SCH (09:31)
[2019-05-10] MEDS: ALLOPURINOL 100 MG TABLET PO SCH (09:31)
--- NOTE | 2019-05-10 13:49 | PDOC PROGRESS REPORT ---
Subjective Progress Note for:: 05/10/19 Subjective:: Patient is breathing is much better today. Patient slept well with BiPAP. Patient denies any chest pain. Reason For Visit: HYPERCAPNIC RESP FAILURE, HEART FAILURE Physical Exam Vital Signs: Temp Pulse Resp BP Pulse Ox 97.9 F 83 20 122/62 100 05/10/19 11:45 05/10/19 11:45 05/10/19 11:45 05/10/19 11:45 05/10/19 11:45 Intake & Output 05/09/19 05/10/19 05/11/19 06:59 06:59 06:59 Intake Total 1681 1557 240 Output Total 1890 3200 725 Balance -209 -6742 -485 Weight 149.4 kg 147.2 kg General appearance: PRESENT: no acute distress, cooperative Neck exam: ABSENT: JVD Respiratory exam: PRESENT: clear to auscultation shala, symmetrical, unlabored. ABSENT: tachypnea, wheezes Cardiovascular exam: PRESENT: RRR, +S1, +S2. ABSENT: tachycardia GI/Abdominal exam: PRESENT: normal bowel sounds, soft. ABSENT: rebound, rigid, tenderness Neurological exam: PRESENT: alert, awake Results Laboratory Results: 05/10/19 04:15 05/10/19 04:15 05/10/19 05/10/19 04:15 04:15 WBC 6.5 RBC 3.84 L Hgb 11.1 L Hct 33.3 L MCV 87 MCH 28.9 MCHC 33.4 RDW 18.2 H Plt Count 165 Seg Neutrophils % 70.8 Sodium 142.1 Potassium 3.4 L Chloride 101 Carbon Dioxide 32 H Anion Gap 9 BUN 36 H Creatinine 1.58 H Est GFR ( Amer) 52 L Glucose 140 H Calcium 8.8 05/07/19 05/07/19 05/10/19 12:00 15:35 04:15 Troponin I < 0.012 < 0.012 NT-Pro-B Natriuret Pep 2960 H 2700 H Impressions: Chest X-Ray 05/10/19 06:00 IMPRESSION: Improving CHF. Assessment and Plan - Diagnosis (1) Acute on chronic combined systolic and diastolic congestive heart failure Is this a current diagnosis for this admission?: Yes Plan: I reviewed final Echo results and image showing EF of 40 to 45%. Diastology not assessed on this echo given A. fib but was noted to be 2/4 diastolic dysfunction in 2017 echo. Repeat chest x-ray image was reviewed by me and shows improvement in CHF and improved pulmonary edema & effusion Changed to Bumex 2 mg p.o. twice daily today [home dose of Bumex 2 mg p.o. daily] Dr. Grace following. Diamox added. Theophylline given for suspicion of potential component of central sleep apnea. Recommendations appreciated. Strict I's and O's, 1500 cc fluid restriction, Weigh daily and continue Coreg, lisinopril and Imdur. (2) Acute hypercapnic respiratory failure Is this a current diagnosis for this admission?: Yes Plan: Likely complement of OHS or CHF continue nocturnal BiPAP while inpatient Dr. Powers is working on getting patient a trilogy for discharge (3) Obesity hypoventilation syndrome Is this a current diagnosis for this admission?: Yes Plan: Nocturnal BiPAP while inpatient. We are hoping for trilogy on discharge (4) Pleural effusion Is this a current diagnosis for this admission?: Yes Plan: Repeat chest x-ray today shows only very small residual pleural effusion Pleural effusions are likely secondary to the congestive heart failure as such there is no need for thoracentesis at this time. (5) Diabetes mellitus type 2 in obese Is this a current diagnosis for this admission?: Yes Plan: Sliding scale insulin, continue metformin, ADA diet Accuchecks (6) Coronary artery disease Qualifiers: Coronary Disease-Associated Artery/Lesion type: [place] artery [place] vs. transplanted heart: [place] heart Associated angina: without angina Qualified Code(s): I25.10 - Atherosclerotic heart disease of [place] coronary artery without angina pectoris Is this a current diagnosis for this admission?: Yes Plan: Scheduled for outpatient stress test with Dr. Gomez (7) Chronic renal failure, stage 3 (moderate) Is this a current diagnosis for this admission?: Yes Plan: Creatinine at baseline. We will continue to monitor via BMP. - Time Time Spent with patient: 15-24 minutes
[2019-05-10] MEDS: BUMETANIDE 1 MG TABLET PO SCH (17:09)
[2019-05-10] MEDS: APIXABAN 5 MG TABLET PO SCH (17:10)
--- NOTE | 2019-05-10 19:12 | Progress Note ---
Provider Note Provider Note: CARDIOLOGY PROGRESS NOTE by Dr. Mel Gomez on 05/10/2019. SUBJECTIVE: The patient earlier on was on BiPAP. At present he is on nasal cannula without any problems. He has chronic orthopnea, but no PND. There is no chest pain or discomfort. The patient continues to be atrial fibrillation with controlled ventricular response. There is no bleeding on Eliquis. There is no TIA CVA symptoms. There is no ventricular arrhythmia seen on the monitor. The patient is anxious to go home. His cardiac status is stable. He has good diuresis with diuretics and the IV diuretics PHYSICAL EXAMINATION: The patient is morbidly obese. At present no acute distress. Selected Entries 05/10/19 05/10/19 08:00 11:45 Temperature 98.2 F 97.9 F Temperature Axillary Oral Source Pulse Rate 72 83 Respiratory 22 H 20 Rate Blood Pressure 149/63 H 122/62 Blood Pressure 91 82 Mean BP Location Right Arm Right Arm BP Position Sitting Sitting O2 Sat by Pulse 100 100 Oximetry Oxygen Flow 5.00 Rate Oxygen Delivery Bipap Nasal Cannula Method Percent of 40 Oxygen HEAD: Is atraumatic. Normocephalic. EYES: Pupils are equal round regular reactive light accommodation. Extraocular movements are normal. ENT is negative. Neck is supple. There is no JVD. Carotids are equal there is no bruit. There is no lymphadenopathy. There is no goiter. There is no accessory muscle respiration use. Trachea central. LUNGS: Some breath sounds in the bases, the rest of the lungs are clear to auscultation percussion. There is no chest wall tenderness. There is norhonchi rales or wheezing. HEART: S1-S2 is heard S1 is of variable intensity. There is faint murmur of aortic regurgitation. Present. There is systolic murmur left sternal border and the apex. There is no rub. There is no S3 gallop there is no S4 gallop. ABDOMEN: Is obese nontender there is no paraspinal megaly. Bowel sounds are well heard. EXTREMITIES: Femorals are deep. Femorals are diminished. There is no femoral bruits. Leg pulses are faint. There is 1+ chronic edema with the leg being bandaged. There is no cyanosis or clubbing. TIMING ADJUSTER: The patient is conscious awake alert oriented x3 with no focal deficit at present he does not appear to be somnolent. PSYCHIATRIC: The patient judgment insight are intact his affect is normal. Labs- All tests 24 hr 05/09/19 05/10/19 05/10/19 22:12 04:15 04:15 WBC 6.5 RBC 3.84 L Hgb 11.1 L Hct 33.3 L MCV 87 MCH 28.9 MCHC 33.4 RDW 18.2 H Plt Count 165 Lymph % (Auto) 17.0 [place] % (Auto) 8.2 Eos % (Auto) 3.3 Baso % (Auto) 0.7 Absolute Neuts (auto) 4.6 Absolute Lymphs (auto) 1.1 Absolute Monos (auto) 0.5 Absolute Eos (auto) 0.2 Absolute Basos (auto) 0.0 Seg Neutrophils % 70.8 PT INR APTT Sodium Potassium Chloride Carbon Dioxide Anion Gap BUN Creatinine Est GFR ( Amer) Est GFR (MDRD) Non-Af Glucose POC Glucose 136 H Calcium NT-Pro-B Natriuret Pep 2700 H 05/10/19 05/10/19 05/10/19 04:15 04:15 08:01 WBC RBC Hgb Hct MCV MCH MCHC RDW Plt Count Lymph % (Auto) [place] % (Auto) Eos % (Auto) Baso % (Auto) Absolute Neuts (auto) Absolute Lymphs (auto) Absolute Monos (auto) Absolute Eos (auto) Absolute Basos (auto) Seg Neutrophils % PT 16.9 H INR 1.37 APTT 33.4 Sodium 142.1 Potassium 3.4 L Chloride 101 Carbon Dioxide 32 H Anion Gap 9 BUN 36 H Creatinine 1.58 H Est GFR ( Amer) 52 L Est GFR (MDRD) Non-Af 43 L Glucose 140 H POC Glucose 139 H Calcium 8.8 NT-Pro-B Natriuret Pep 05/10/19 05/10/19 11:46 16:12 WBC RBC Hgb Hct MCV MCH MCHC RDW Plt Count Lymph % (Auto) [place] % (Auto) Eos % (Auto) Baso % (Auto) Absolute Neuts (auto) Absolute Lymphs (auto) Absolute Monos (auto) Absolute Eos (auto) Absolute Basos (auto) Seg Neutrophils % PT INR APTT Sodium Potassium Chloride Carbon Dioxide Anion Gap BUN Creatinine Est GFR ( Amer) Est GFR (MDRD) Non-Af Glucose POC Glucose 184 H 119 H Calcium NT-Pro-B Natriuret Pep Chest X-Ray 05/07/19 11:28 IMPRESSION: Chronic cardiomegaly. Cannot exclude mild pulmonary edema. Small pleural effusions. Chest X-Ray 05/10/19 06:00 IMPRESSION: Improving CHF. The patient's 24-hour intake is 155 7 mL. The patient's 24-hour output is 3200 mL. IMPRESSION/RECOMMENDATION: 1. Acute on chronic hypercapnic respiratory failure. Suspect this is secondary to sleep apnea which I think is a mixture of obstructive sleep apnea and central sleep apnea 2. Congestive heart failure: Most likely biventricular failure. Continue current treatment. Will check chest x-ray in a.m. 3. 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 Continue patient's CPAP. With AVAP setting. Also this will see if there are any hypoxic episodes due to central sleep apnea. In view of this we will cautiously add some Diamox., And also Obdulio-Dur will be started. 4. Coronary artery disease: History of coronary bypass graft surgery: Stable with no anginal symptoms. Will order EKG in the morning. 5. Chronic atrial fibrillation: Continue current medication and Eliquis. 6. Aortic regurgitation: Mild. 7. Hypertension: Blood pressure well controlled. 8. Diabetes mellitus: Continue antidiabetic medication and Accu-Cheks as per protocol. 9. Hypothyroidism: Continue thyroid replacement. 10. Bilateral pleural effusions: Continue diuretics. 11. Morbid obesity recommend nutritional consult. Medications reviewed. Medical regimen management plan discussed with attending provider on the case. Medical decision making is of moderate complexity. Cardiac status stable. Will sign off and follow the patient in the office. The patient has my cell phone number, and will contact me if he has any problems that should arise.
[2019-05-10] MEDS: ATORVASTATIN CALCIUM 40 MG TABLET PO SCH (22:56)
[2019-05-11] MEDS: LEVOTHYROXINE SODIUM 0.025 MG TABLET PO SCH (06:08)
[2019-05-11 09:33] LABS: ANION GAP 8 (5-19); BLOOD UREA NITROGEN 31 mg/dL (7-20); CALCIUM 9.3 mg/dL (8.4-10.2); CARBON DIOXIDE 36 mmol/L (22-30); CHLORIDE 99 mmol/L (98-107); GLUCOSE 132 mg/dL (75-110); POTASSIUM 3.8 mmol/L (3.6-5.0)
[2019-05-11] MEDS: INSULIN LISPRO 100 UNIT/ML 3 ML VIAL SUBCUT SCH (09:44)
[2019-05-11] MEDS: METFORMIN HCL 500 MG TABLET PO SCH (09:44)
[2019-05-11] MEDS: POTASSIUM CHLORIDE 10 MEQ TABLET.ER PO SCH (09:45)
[2019-05-11] MEDS: DOCUSATE SODIUM 100 MG CAPSULE PO SCH (09:45)
[2019-05-11] MEDS: THEOPHYLLINE ANHYDROUS 100 MG TAB.SR.12H PO SCH (09:45)
[2019-05-11] MEDS: TAMSULOSIN HCL 0.4 MG CAP.SR.24H PO SCH (09:45)
[2019-05-11] MEDS: APIXABAN 5 MG TABLET PO SCH (09:46)
[2019-05-11] MEDS: FAMOTIDINE 20 MG TABLET PO SCH (09:46)
[2019-05-11] MEDS: MAGNESIUM OXIDE 400 MG TABLET PO SCH (09:46)
[2019-05-11] MEDS: LISINOPRIL 10 MG TABLET PO SCH (09:46)
[2019-05-11] MEDS: ISOSORBIDE MONONITRATE 30 MG TAB.ER.24H PO SCH (09:47)
[2019-05-11] MEDS: CARVEDILOL 12.5 MG TABLET PO SCH (09:48)
[2019-05-11] MEDS: BUMETANIDE 1 MG TABLET PO SCH (09:48)
[2019-05-11] MEDS: ALLOPURINOL 100 MG TABLET PO SCH (09:48)
[2019-05-11] MEDS: FLUTICASONE NASAL SPRAY 50 MCG/SPRY 120 SPRAY/16 GM NASL SCH (09:49)
--- NOTE | 2019-05-11 13:09 | PDOC DISCHARGE SUMMARY ---
Impression - Admit/DC Date/PCP Admission Date/Primary Care Provider: 05/07/19 14:[facility] Discharge Date: 05/11/19 - Discharge Diagnosis (1) Acute on chronic combined systolic and diastolic congestive heart failure Is this a current diagnosis for this admission?: Yes (2) Acute hypercapnic respiratory failure Is this a current diagnosis for this admission?: Yes (3) Obesity hypoventilation syndrome Is this a current diagnosis for this admission?: Yes (4) Pleural effusion Is this a current diagnosis for this admission?: Yes (5) Diabetes mellitus type 2 in obese Is this a current diagnosis for this admission?: Yes (6) Coronary artery disease Is this a current diagnosis for this admission?: Yes (7) Chronic renal failure, stage 3 (moderate) Is this a current diagnosis for this admission?: Yes (8) Obstructive sleep apnea Is this a current diagnosis for this admission?: Yes - Assessment Summary: Patient presented with shortness of breath and cough. Examination revealed some crackles with lower extremity edema. BNP was noted to be fairly elevated from last measurement during his last admission. Chest x-ray showed cardiomegaly as well as increased pulmonary vascular congestion and mild pulmonary edema and small amount of pleural effusions are likely secondary to CHF. Patient was started on treatment IV Bumex diuresis for acute on chronic congestive heart failure. Echocardiogram was done which showed EF of 40 to 45% which is reduced from 2 years ago which at that time also showed diastolic dysfunction. Patient has diuresed adequately and was transitioned to oral Bumex 2 mg twice daily which is an increase from his former dose of Bumex 2 mg p.o. daily. Patient has been given strict instructions to follow-up with his primary care provider for a repeat basic metabolic panel in 1 week to monitor his kidney function. Patient was also noted during this admission to have acute vs acute on chronic hypercapnic respiratory failure on arterial and venous blood gases which we believe is secondary to obesity hypoventilation syndrome more so than the CHF. As such patient will benefit from a trilogy given persistence of hypercarbia despite use of BiPAP while inpatient. Patient was seen by Dr. Powers who is working on getting patient a trilogy machine. Patient will be following up with Dr. Ruvalcaba in the outpatient clinic. For patient's sleep apnea, he was started on theophylline by Dr. Grace with suspicion of potential contribution of central sleep apnea in addition to his obstructive sleep apnea. Patient is being discharged in stable conditions with the appropriate follow- ups. - Additional Information Resuscitation Status: Full Code Discharge Diet: Cardiac, Diabetic Discharge Activity: Activity As Tolerated, Balance Activity w/Rest, Weigh Daily Referrals: JAI POWERS MD [ACTIVE STAFF] - 06/13/19 1:30 pm SEAN AYOUB MD [ACTIVE STAFF] - [facility] [Primary Care Provider] - Follow up as needed (Patient will have to make own apppointment. CT does not allow anyone but the patient to make appointments.) Prescriptions: Bumetanide [Bumex 1 mg Tablet] 2 mg PO BID #60 tablet Fluticasone Propionate [Flonase Nasal Neche 50 Mcg/Neche 16 gm] 1 spray NASL Q12 #1 inhaler Theophylline Anhydrous [Obdulio-Dur 100 mg Tab.sr] 100 mg PO Q12 #60 tab.sr.12h Home Medications: Allopurinol [Zyloprim 100 mg Tablet] 100 mg PO DAILY 02/20/19 Apixaban [Eliquis 5 mg Tablet] 5 mg PO Q12 02/20/19 Atorvastatin Calcium [Lipitor 80 mg Tablet] 40 mg PO QHS 02/20/19 Carvedilol [Coreg 25 mg Tablet] 25 mg PO Q12 02/20/19 Docusate Sodium [Colace 100 mg Capsule] 100 mg PO BID 02/20/19 Isosorbide Mononitrate [Imdur 30 mg Tablet.er] 90 mg PO DAILY 02/20/19 Levothyroxine Sodium [Synthroid 0.025 mg Tablet] 0.025 mg PO MOWEFR@06 02/20/19 Liraglutide [Victoza 2-Dewayne] 1.8 mg SQ DAILY 02/20/19 Lisinopril [Prinivil] 10 mg PO DAILY 02/20/19 Loratadine [Claritin 10 mg Tablet] 10 mg PO DAILY 02/20/19 Magnesium Oxide [Mag-Ox 400 mg Tablet] 400 mg PO DAILY 02/20/19 Metformin HCl [Glucophage 500 mg Tablet] 1,000 mg PO BID 02/20/19 Potassium Chloride [Klor-Con M10] 20 meq PO BID 02/20/19 Ranitidine HCl [Heartburn Relief 150] 150 mg PO BID 02/20/19 Tamsulosin HCl [Flomax 0.4 mg Cap.sr] 0.4 mg PO DAILY 02/20/19 Clindamycin Phosphate 1 applic TP DAILY 05/07/19 Insulin Glargine,Hum.rec.anlog [Lantus Insulin 100 Unit/mL Insulin Pen] 25 unit SUBCUT QHS 05/07/19 Nitroglycerin [Nitrostat 0.4 mg (1/150 Gr) Tabs 25/Bottle] 0.4 mg SL Q5MP PRN 05/07/19 Bumetanide [Bumex 1 mg Tablet] 2 mg PO BID #60 tablet 05/11/19 Fluticasone Propionate [Flonase Nasal Neche 50 Mcg/Neche 16 gm] 1 spray NASL Q12 #1 inhaler 05/11/19 Theophylline Anhydrous [Obdulio-Dur 100 mg Tab.sr] 100 mg PO Q12 #60 tab.sr.12h 05/11/19 History of Present Illiness History of Present Illness: GRACE LEONE is a 74 year old male presents with complaints of weakness and some shortness of breath. Patient was recently discharged about 2 months ago after treatment for congestive heart failure. Since discharge patient has seen Dr. Ayoub in the office without any changes made to his medical regimen. Yesterday patient started to feel significantly weak and fatigued and was noted by his son's to appear mildly short of breath. Patient himself states that shortness of breath is only mild. Son does admit that yesterday patient also looked very sleepy. Patient does admit to some increasing leg swelling but stable orthopnea as he is sleeping incline chair for years. Denies any chest pain. Endorses mild cough and CPAP compliance. Patient was brought into the hospital for evaluation was noted to be hypercapnic and subsequently admitted under hospitalist service. Of note patient states he has been weighing himself daily at home but endorses no increase in weight. Physical Exam Vital Signs: Temp Pulse Resp BP Pulse Ox 97.7 F 77 20 137/63 H 96 05/11/19 11:00 05/11/19 11:00 05/11/19 11:00 05/11/19 11:00 05/11/19 11:00 Intake & Output 05/10/19 05/11/19 05/12/19 06:59 06:59 06:59 Intake Total 1557 1500 630 Output Total 4984 6145 400 Balance -1643 -1275 230 Weight 147.2 kg 144.5 kg General appearance: PRESENT: no acute distress, cooperative Respiratory exam: PRESENT: clear to auscultation shala, unlabored. ABSENT: tachypnea, wheezes Cardiovascular exam: PRESENT: RRR, +S1, +S2. ABSENT: tachycardia Extremities exam: PRESENT: pedal edema Neurological exam: PRESENT: alert, awake, oriented to person, oriented to place, oriented to time, oriented to situation Results Laboratory Results: WBC 6.5 10^3/uL (4.0-10.5) 05/10/19 04:15 RBC 3.84 10^6/uL (4.35-5.55) L 05/10/19 04:15 Hgb 11.1 g/dL (13.5-17.0) L 05/10/19 04:15 Hct 33.3 % (37.9-51.0) L 05/10/19 04:15 MCV 87 fl (80-97) 05/10/19 04:15 MCH 28.9 pg (27.0-33.4) 05/10/19 04:15 MCHC 33.4 g/dL (32.0-36.0) 05/10/19 04:15 RDW 18.2 % (11.5-14.0) H 05/10/19 04:15 Plt Count 165 10^3/uL (150-450) 05/10/19 04:15 Lymph % (Auto) 17.0 % (13-45) 05/10/19 04:15 [place] % (Auto) 8.2 % (3-13) 05/10/19 04:15 Eos % (Auto) 3.3 % (0-6) 05/10/19 04:15 Baso % (Auto) 0.7 % (0-2) 05/10/19 04:15 Absolute Neuts (auto) 4.6 10^3/uL (1.7-8.2) 05/10/19 04:15 Absolute Lymphs (auto) 1.1 10^3/uL (0.5-4.7) 05/10/19 04:15 Absolute Monos (auto) 0.5 10^3/uL (0.1-1.4) 05/10/19 04:15 Absolute Eos (auto) 0.2 10^3/uL (0.0-0.6) 05/10/19 04:15 Absolute Basos (auto) 0.0 10^3/uL (0.0-0.2) 05/10/19 04:15 Seg Neutrophils % 70.8 % (42-78) 05/10/19 04:15 PT 16.9 SEC (11.4-15.4) H 05/10/19 04:15 INR 1.37 05/10/19 04:15 APTT 33.4 SEC (23.5-35.8) 05/10/19 04:15 Carbonic Acid 1.67 mmol/L (1.05-1.35) H 05/09/19 06:04 HCO3/H2CO3 Ratio 18:1 05/09/19 06:04 ABG pH 7.36 (7.35-7.45) 05/09/19 06:04 ABG pCO2 55.4 mmHg (35-45) H 05/09/19 06:04 ABG pO2 81.4 mmHg (80-100) 05/09/19 06:04 ABG HCO3 30.4 mmol/L (20-24) H 05/09/19 06:04 ABG Total CO2 32.1 mmol/L (23-27) H 05/09/19 06:04 ABG O2 Saturation 95.4 % (94-98) 05/09/19 06:04 ABG Base Excess 3.9 mmol/L 05/09/19 06:04 VBG pH 7.28 (7.30-7.42) L 05/08/19 06:33 VBG pCO2 72.6 mmHg (35-63) H* 05/08/19 06:33 VBG HCO3 33.4 mmol/L (20-32) H 05/08/19 06:33 VBG Base Excess 4.6 mmol/L 05/08/19 06:33 FiO2 40% 05/09/19 06:04 Sodium 143.2 mmol/L (137-145) 05/11/19 08:27 Potassium 3.8 mmol/L (3.6-5.0) 05/11/19 08:27 Chloride 99 mmol/L (98-107) 05/11/19 08:27 Carbon Dioxide 36 mmol/L (22-30) H 05/11/19 08:27 Anion Gap 8 (5-19) 05/11/19 08:27 BUN 31 mg/dL (7-20) H 05/11/19 08:27 Creatinine 1.51 mg/dL (0.52-1.25) H 05/11/19 08:27 Est GFR ( Amer) 55 (>60) L 05/11/19 08:27 Est GFR (MDRD) Non-Af 45 (>60) L 05/11/19 08:27 Glucose 132 mg/dL (75-110) H 05/11/19 08:27 POC Glucose 180 mg/dL (70-110) H 05/11/19 10:57 Calcium 9.3 mg/dL (8.4-10.2) 05/11/19 08:27 Magnesium 1.7 mg/dL (1.6-2.3) 05/08/19 04:34 Total Bilirubin 0.8 mg/dL (0.2-1.3) 05/07/19 12:00 Direct Bilirubin 0.4 mg/dL (0.0-0.4) 05/07/19 12:00 Neonat Total Bilirubin Not Reportable 05/07/19 12:00 Neonat Direct Bilirubin Not Reportable 05/07/19 12:00 Neonat Indirect Bili Not Reportable 05/07/19 12:00 AST 22 U/L (17-59) 05/07/19 12:00 ALT 24 U/L (<50) 05/07/19 12:00 Alkaline Phosphatase 169 U/L (38-126) H 05/07/19 12:00 Lactate Dehydrogenase 168 U/L (120-246) 05/08/19 16:56 Troponin I < 0.012 ng/mL 05/07/19 15:35 NT-Pro-B Natriuret Pep 2700 pg/mL (<125) H 05/10/19 04:15 Total Protein 7.7 g/dL (6.3-8.2) 05/07/19 12:00 Albumin 4.0 g/dL (3.5-5.0) 05/07/19 12:00 05/07/19 05/07/19 05/10/19 12:00 15:35 04:15 Troponin I < 0.012 < 0.012 NT-Pro-B Natriuret Pep 2960 H 2700 H Impressions: Chest X-Ray 05/07/19 11:28 IMPRESSION: Chronic cardiomegaly. Cannot exclude mild pulmonary edema. Small pleural effusions. Chest X-Ray 05/10/19 06:00 IMPRESSION: Improving CHF. Plan Time Spent: Greater than 30 Minutes Stroke Is this a Stroke Patient?: No Acute Heart Failure - Is this a Heart Failure Patient?: Yes Documentation of LVEF assessment?: Yes LVEF < 40%?: No- if no continue to question #3 3. Anticoagulant therapy for permanect/persistent/paraoxysmal Afib or Aflutter: Yes
[2019-05-11 14:08] VITALS: BP 130/64
== END 2019-05-11 14:10 | disposition home or self-care (01) | DRG 291 ==
LOC: ER 11:06 → EH 14:29 → 3N 16:58
PROVIDERS: ADMIT Internal Medicine; ATTEND Internal Medicine
PROC: 5A09457 Assistance with Respiratory Ventilation, 24-96 Consecutive Hours, Continuous Positive Airway Pressure (ICD-10-PCS; principal; 2019-05-07)
DX: I13.0 Hypertensive heart and chronic kidney disease with heart failure and stage 1 through stage 4 chronic kidney disease, or unspecified chronic kidney disease (principal); I50.33 Acute on chronic diastolic (congestive) heart failure; J96.02 Acute respiratory failure with hypercapnia; E66.2 Morbid (severe) obesity with alveolar hypoventilation; I48.20 Chronic atrial fibrillation, unspecified; Z68.42 Body mass index [BMI] 45.0-49.9, adult; N18.3 Chronic kidney disease, stage 3 (moderate); E11.22 Type 2 diabetes mellitus with diabetic chronic kidney disease; I25.10 Atherosclerotic heart disease of native coronary artery without angina pectoris; M19.90 Unspecified osteoarthritis, unspecified site; E03.9 Hypothyroidism, unspecified; I51.7 Cardiomegaly; Z85.3 Personal history of malignant neoplasm of breast; Z90.10 Acquired absence of unspecified breast and nipple; Z90.5 Acquired absence of kidney; Z87.891 Personal history of nicotine dependence; Z80.3 Family history of malignant neoplasm of breast; Z79.899 Other long term (current) drug therapy; Z79.4 Long term (current) use of insulin; Z88.8 Allergy status to other drugs, medicaments and biological substances; Z79.82 Long term (current) use of aspirin; Z80.8 Family history of malignant neoplasm of other organs or systems
CPT/HCPCS: 36415; 36600; 71045; 80048; 80053; 82803; 82962; 83615; 83735; 83880; 84484; 85025; 85610; 85730; 93005; 93010; 93306; 94660; 96374; 99285; J1815; J1940; J3490